=== PATIENT | female | born 2000 | race Caucasian/White ===

== ENCOUNTER 2023-09-30 12:14 | Emergency (ER) | payer OTHER, SELFPAY ==
[2023-09-30 12:30] VITALS: BP 131/88; PULSE 59; RESP 18; O2SAT 98; BMI 18.9
--- NOTE | 2023-09-30 12:58 | US_ITS ---
The [address] [address] Patient Name: TRINA NELSON MRN: [id number] date: 2000 Sex: F Assigned Patient Location: ER Current Patient Location: ER Accession/Order Number: [id number] Exam Date: 09/30/2023 14:16 Report Date: 09/30/2023 15:28 At the request of: INES COBOS Procedure: US pelvis transvaginal EXAM: US pelvis transvaginal INDICATION: Abnormal vaginal bleeding, awaiting test COMPARISON: No prior pelvic ultrasound available for comparison at the time of this dictation. TECHNIQUE: Transvaginal ultrasound with grayscale, color Doppler and spectral Doppler imaging. FINDINGS: Anteverted Uterus:8.0 x 3.7 x 5.1 cm. Grossly normal myometrial echotexture. Simple nabothian cyst. Endometrium:1.7 mm Right ovary: 3.6 x 1.8 x 2.5 cm. 1.3 x 1.1 x 1.2 cm dominant follicle within the right ovary. Left ovary: 4.5 x 2.8 x 3.1cm. 0.9 x 0.7 x 0.8 cm simple, thin-walled cystic nodule without vascular flow adjacent to the left adnexa. Normal color Doppler with arterial/venous spectral tracing to both ovaries. No free fluid in the cul-de-sac. US/US pelvis transvaginal IMPRESSION: 1. Simple cystic nodule adjacent to the left adnexa, given appearance likely a paratubal cyst. If there is a positive test with beta hCG greater than 1800 mIU/mL then ectopic would also be included in the differential. 2. No ovarian torsion or intrauterine gestation. Electronically authenticated by: VIVIENNE JOSEPH Date: 09/30/2023 15:28
--- NOTE | 2023-09-30 13:28 | ED.FEMALEGU1 ---
HPI - Female Genitourinary General Chief complaint: Urogenital-Female Stated complaint: VAGINAL BLEEDING Time Seen by Provider: 09/30/23 12:52 Source: patient Mode of arrival: walk-in History of Present Illness HPI Narrative: 22-year-old female presents for irregular abnormal vaginal bleeding. This has been present for a few months and she is not on control. She went to another emergency department and she states that they did a test and pelvic exam. 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 She continues to have this irregular bleeding and it's been heavier than typical and she came in to have this evaluated today. No syncope or chills mild low abdominal cramping but no significant abdominal pain. She has had bleeding twice this month. Related Data Allergies Allergy/AdvReac Type Severity Reaction Status Date / Time No Known Drug Allergies Allergy Verified 09/30/23 12:34 Review of Systems ROS Narrative A ten point review of systems is negative except as noted above. Exam Narrative Exam Narrative: Nurses note and vital signs reviewed and patient is not hypoxic. General: The patient appears well and in no apparent distress. Patient is resting comfortably on cart. Skin: Warm, dry, minimal pallor noted. There is no rash noted. Head: Normocephalic, atraumatic Eye: Normal conjunctiva, no drainage Ears, Nose, Mouth, and Throat: oral mucosa is moist. Nares patent. Cardiovascular: Regular Rate and Rhythm Respiratory: Patient is in no distress, no accessory muscle use, lungs are clear to auscultation, no wheezing, rales or rhonchi Back: non-tender GI: no tenderness to palpation, no masses appreciated. No rebound, guarding, or rigidity noted. Musculoskeletal: The patient has no evidence of calf tenderness, no pitting edema, symmetrical pulses noted bilaterally Neurological: A&O, normal speech Psychiatric: Cooperative Constitutional Vital Signs, click to edit/add: Last Vital Signs Pulse 59 L 09/30/23 12:30 Resp 18 09/30/23 12:30 BP 131/88 09/30/23 12:30 Pulse Ox 98 09/30/23 12:30 O2 Del Method Room Air 09/30/23 12:30 Course Vital Signs Vital signs: Vital Signs Pulse Rate 59 L 09/30/23 12:30 Respiratory Rate 18 09/30/23 12:30 Blood Pressure 131/88 09/30/23 12:30 Pulse Oximetry 98 09/30/23 12:30 Oxygen Delivery Method Room Air 09/30/23 12:30 Pulse Rate 59 L 09/30/23 12:30 Respiratory Rate 18 09/30/23 12:30 Blood Pressure 131/88 09/30/23 12:30 Pulse Oximetry 98 09/30/23 12:30 Oxygen Delivery Method Room Air 09/30/23 12:30 MDM - Female Genitourinary MDM Narrative Medical decision making narrative: test is negative. I've no clinical suspicion of ectopic . Ultrasound shows possible cyst at the left adnexa and otherwise is negative. She is being referred to gynecology for appropriate follow-up. She's not anemic, hemoglobin is 13.6. Treatment diagnosis and follow-up were discussed with the patient. Differential Diagnosis Differential diagnosis: Likely other (miscarriage, ectopic , dysfunctional uterine bleeding) Lab Data Attestation: I reviewed the patient's lab results. Labs: Lab Results 09/30/23 Range/Units 13:05 WBC 5.6 (4.0-11.0) 10^3/uL RBC 4.49 (4.20-5.40) 10^6/uL Hgb 13.6 (12.0-16.0) g/dL Hct 40.4 (36.0-48.0) % MCV 90.0 (81.0-99.0) fL MCH 30.3 (26.7-34.0) pg MCHC 33.7 (29.9-35.2) g/dL RDW 12.2 (11.0-15.0) % Plt Count 237 (150-450) 10^3/uL MPV 11.0 (9.5-13.5) fL Neut % (Auto) 54.2 (43.0-75.0) % Lymph % (Auto) 36.3 (20.5-60.0) % [place] % (Auto) 7.1 (1.7-12.0) % Eos % (Auto) 1.1 (0.9-7.0) % Baso % (Auto) 1.1 (0.2-2.0) % Neut # (Auto) 3.1 (1.4-6.5) 10^3/uL Lymph # (Auto) 2.0 (1.2-3.8) 10^3/uL [place] # (Auto) 0.4 (0.3-0.8) 10^3/uL Eos # (Auto) 0.1 (0.0-0.7) 10^3/uL Baso # (Auto) 0.1 (0.0-0.1) 10^3/uL Abs Immat Gran (auto) 0.01 (0.00-0.03) 10^3/uL Imm/Tot Granulo (auto) 0.2 (0.0-0.5) % Sodium 141 (136-145) mmol/L Potassium 3.5 (3.5-5.1) mmol/L Chloride 104 (98-107) mmol/L Carbon Dioxide 27.6 (21.0-32.0) mmol/L Anion Gap 12.9 BUN 15.0 (7.0-18.0) mg/dL Creatinine 0.69 (0.55-1.02) mg/dL Est GFR ( Amer) >60 (>=60) Est GFR (Non-Af Amer) >60 (>=60) BUN/Creatinine Ratio 21.7 Glucose 104 (74-106) mg/dL Calcium 9.3 (8.5-10.1) mg/dL Serum HCG, Qual Negative (NEGATIVE) Imaging Data pelvic ultrasound: Radiologist's impression: Procedure: US pelvis transvaginal EXAM: US pelvis transvaginal INDICATION: Abnormal vaginal bleeding, awaiting test COMPARISON: No prior pelvic ultrasound available for comparison at the time of this dictation. TECHNIQUE: Transvaginal ultrasound with grayscale, color Doppler and spectral Doppler imaging. FINDINGS: Anteverted Uterus:8.0 x 3.7 x 5.1 cm. Grossly normal myometrial echotexture. Simple nabothian cyst. Endometrium:1.7 mm Right ovary: 3.6 x 1.8 x 2.5 cm. 1.3 x 1.1 x 1.2 cm dominant follicle within the right ovary. Left ovary: 4.5 x 2.8 x 3.1cm. 0.9 x 0.7 x 0.8 cm simple, thin-walled cystic nodule without vascular flow adjacent to the left adnexa. Normal color Doppler with arterial/venous spectral tracing to both ovaries. No free fluid in the cul-de-sac. IMPRESSION: 1. Simple cystic nodule adjacent to the left adnexa, given appearance likely a paratubal cyst. If there is a positive test with beta hCG greater than 1800 mIU/mL then ectopic would also be included in the differential. 2. No ovarian torsion or intrauterine gestation. Electronically authenticated by: VIVIENNE JOSEPH Date: 09/30/2023 15:28 Discharge Plan Discharge Chief Complaint: Urogenital-Female Clinical Impression: DUB (dysfunctional uterine bleeding) Patient Disposition: Home, Self-Care Time of Disposition Decision: 15:50 Condition: Good Mode of Transportation: Private Vehicle Instructions: Abnormal (Dysfunctional) Uterine Bleeding (ED) Additional Instructions: follow-up with Dr. Ruiz Stand Alone Forms: Portal Instructions Referrals: Physician,Non-Staff, MD [Primary Care Provider] - 1 week
[2023-09-30 13:38] LABS: Basophils Absolute Auto 0.1 10^3/uL (0.0-0.1); Basophils Percent Auto 1.1 % (0.2-2.0); Eosinophils Absolute Auto 0.1 10^3/uL (0.0-0.7); Eosinophils Percent Auto 1.1 % (0.9-7.0); Hematocrit 40.4 % (36.0-48.0); Hemoglobin 13.6 g/dL (12.0-16.0); Immature Granulocytes Abs Auto 0.01 10^3/uL (0.00-0.03); Immature Granulocytes Pct Auto 0.2 % (0.0-0.5); Lymphocytes Percent Auto 36.3 % (20.5-60.0); Mean Corpuscular HGB Conc 33.7 g/dL (29.9-35.2); Mean Corpuscular Hemoglobin 30.3 pg (26.7-34.0); Monocytes Absolute Auto 0.4 10^3/uL (0.3-0.8); Monocytes Percent Auto 7.1 % (1.7-12.0); Neutrophils Absolute Auto 3.1 10^3/uL (1.4-6.5); Neutrophils Percent Auto 54.2 % (43.0-75.0); Platelet Count 237 10^3/uL (150-450); Red Blood Count 4.49 10^6/uL (4.20-5.40); Red Cell Distribution Width 12.2 % (11.0-15.0); White Blood Count 5.6 10^3/uL (4.0-11.0)
[2023-09-30 13:48] LABS: Anion Gap 12.9; BUN Creatinine Ratio 21.7; Calcium 9.3 mg/dL (8.5-10.1); Carbon Dioxide 27.6 mmol/L (21.0-32.0); Chloride 104 mmol/L (98-107); Estimated GFR (African America >60 (>=60); Estimated GFR (Non-African Ame >60 (>=60); Glucose 104 mg/dL (74-106); Potassium 3.5 mmol/L (3.5-5.1); Sodium 141 mmol/L (136-145)
[2023-09-30 13:49] LABS: HCG Qualitative NEGATIVE (NEGATIVE)
== END 2023-09-30 15:58 | disposition home or self-care (01) ==
PROVIDERS: Emergency Provider Emergency Medicine
DX: N93.8 Other specified abnormal uterine and vaginal bleeding (principal)
CPT/HCPCS: 36415; 76830; 80048; 84703; 85025; 99284

== ENCOUNTER 2023-11-08 21:37 | Emergency (ER) | payer OTHER, SELFPAY ==
[2023-11-08 21:41] VITALS: BP 126/76; PULSE 57; RESP 18; TEMP 36.8; O2SAT 98; BMI 18.9
--- OUTSIDE RECORDS SUMMARY | 2023-11-08 21:44 | XMS_ITS | CCD ---
Author Name Unknown Address [address] [facility] [address] [place] [address] Organization [facility] Care Team Providers Care Environmental Aid Name Role Phone ADRY JAUREGUI Unavailable Unavailable CARLOTA DOBBS Unavailable Unavailable Carlota Dbobs Primary Care Provider Carlota Dobbs Primary Care Provider Carlota Dobbs Primary Care Provider WILLIAM, LESIA D Referring Unavailable CARLOTA DOBBS Primary Care Unavailable CARLOTA DOBBS Primary Care Unavailable LENCOSKI, LESIA D Admitting Unavailable DOROTHYSKI, LESIA D Attending Unavailable CARLOTA DOBBS Primary Care Unavailable SHARIFI, LESIA D Referring Unavailable CARLOTA DOBBS Primary Care Unavailable LENCOSKI, LESIA D Admitting Unavailable LENCOSKI, LESIA D Attending Unavailable CARLOTA DOBBS Primary Care Unavailable CARLOTA DOBBS Primary Care Unavailable Carlota Dobbs MD Primary Care Provider Pascale Rodríguez Primary Care Physician [phone] Wilmar Rogel Attending Unavailable Anna Avendano Attending Unavailable Perry HAWTHORNE Attending Unavailable Wilmar Rogel Attending Unavailable Wilmar Rogel Attending Unavailable TRACY VASQUEZ Attending Unavailable Medications Current Medications Medication Drug Class(es) Dates Sig (Normalized) Sig (Original) acetaminophen 325 mg oral tablet (1 source) Start: 03-01-2020 take 650 mg by mouth every four hours as needed for pain, then take 4000 mg by mouth every twenty-four hours as needed for pain 650 mg, Oral, EVERY 4 HOURS PRN, Pain Mild (1-3), Fever, Fever >100.5 F (38 C), Starting Sat03/01/20 at 2024 Maximum dose of acetaminophen is 4000 mg from all sources in 24 hours. acetaminophen 325 mg / HYDROcodone bitartrate 5 mg oral tablet (6 sources) Opioid Agonist Start: 08-12-2022 [place] 325 mg-5 mg oral tablet 1 tab(s), Oral, q6hr for pain, 12 tab(s), Refill(s) 0 Start Date: 08/12/22 Status: Ordered Start: 08-08-2022 acetaminophen- hydrocodone 325 mg-5 mg oral tablet 1 tab(s), Oral, q4hr for pain, 8 tab(s), Refill(s) 0, [facility] #[id number], 154, cm, 08/08/22 19:39:00 EDT, Height/Length Dosing, 46, kg, 08/08/22 19:39:00 EDT, Weight Dosing Start Date: 08/08/22 Status: Ordered Start: 03-01-2020 HYDROcodone-ac etaminophen (NORCO) 5-325 MG per tablet 1 tablet benzocaine 200 mg/ml / menthol 5 mg/ml topical spray (1 source) Standardized Chemical Allergen Start: 03-01-2020 Topical, PRN, Pain, Starting Sat03/01/20 at 2024 Apply to perineal area. Patient is capable and may self administer at bedside. dicyclomine hydrochloride 10 mg oral capsule (4 sources) Anticholinergic Start: 07-28-2022 take 2 capsules by mouth four times daily Bentyl 10 mg Cap 20 mg = 2 cap(s), Oral, QID, # 20 cap(s), Refills(s) 0 Start Date: 07/28/22 Status: Ordered docusate sodium 100 mg oral capsule (1 source) Start: 03-01-2020 take 100 mg by mouth once daily for constipation 100 mg, Oral, DAILY, First dose on Sat03/01/20 at 2045 Do not crush or break. Once daily PRN constipation etodolac 400 mg oral tablet (1 source) Nonsteroidal Anti-inflammatory Drug Start: 07-22-2020 take 1 tablet by mouth twice daily etodolac (LODINE) 400 MG tablet Take 1 tablet by mouth 2 times daily 14 tablet 0 07/22/2020 Active Start: 07-22-2020 take 1 tablet by alexey th twice daily etodolac (LODINE) 400 MG tablet Take 1 tablet by mouth 2 times daily 14 tablet 0 07/22/2020 Active ferrous sulfate 325 mg oral tablet (2 sources) Start: 03-02-2020 take 1 tablet by mouth twice daily at mealtime ferrous sulfate (IRON 325) 325 (65 Fe) MG tablet Take 1 tablet by mouth 2 times daily (with meals) 60 tablet 2 03/02/2020 Active ibuprofen 600 mg oral tablet (3 sources) Nonsteroidal Anti-inflammatory Drug Start: 03-01-2020 take 1 tablet by mouth every six hours as needed for pain ibuprofen (ADVIL;MOTRIN) 600 MG tablet Take 1 tablet by mouth every 6 hours as needed for Pain 120 tablet 3 03/01/2020 Active lanolin 0.5 mg/mg topical ointment (1 source) Start: 03-01-2020 Topical, PRN, Dry Skin, nipple discomfort, Starting Sat03/01/20 at 2024, metoclopramide 10 mg oral tablet (1 source) Dopamine-2 Receptor Antagonist Start: 07-08-2019 take 1 tablet by mouth three times daily as needed for pain and vomiting metoclopramide (REGLAN) 10 MG tablet TAKE 1 TABLET BY MOUTH 3 TIMES A DAY NEEDED FOR PAIN NEEDED FOR NAUSEA AND VOMITING 0 07/08/2019 Active naproxen 500 mg oral tablet (3 sources) Nonsteroidal Anti-inflammatory Drug Start: 08-08-2022 take 1 tablet by mouth twice daily Naprosyn 500 mg Tab 500 mg = 1 tab(s), Oral, BID, # 20 tab(s), Refills(s) 0, [facility]acy: [facility] #[id number], 154, cm, 08/08/22 19:39:00 EDT, Height/Length Dosing, 46, kg, 08/08/22 19:39:00 EDT, Weight Dosing Start Date: 08/08/22 Status: Ordered ondansetron 4 mg oral tablet (6 sources) Serotonin-3 Receptor Antagonist Start: 08-12-2022 take 1 tablet by mouth every eight hours as needed for nausea Zofran 4 mg Tab 4 mg = 1 tab(s), Oral, q8hr, PRN Nausea/Vomiting, # 12 tab(s), Refills(s) 0 Start Date: 08/12/22 Status: Ordered Start: 08-08-2022 take 1 tablet by alexey th every six hours ondansetron 4 mg Dis Tab 4 mg = 1 tab(s), Oral, q6hr, # 12 tab(s), Refills(s) 0, Pharmacy: [facility] #[id number], 154, cm, 08/08/22 19:39:00 EDT, Height/Length Dosing, 46, kg, 08/08/22 19:39:00 EDT, Weight Dosing Start Date: 08/08/22 Status: Ordered Start: 03-01-2020 4 mg, Intraven ous, EVERY 6 HOURS PRN, Nausea, Starting Sat03/01/20 at 2024, pantoprazole 40 mg extended release oral tablet (4 sources) Proton Pump Inhibitor Start: 07-28-2022 take 1 tablet by mouth once daily pantoprazole 40 mg Oral EC Tab 40 mg = 1 tab(s), Oral, Daily, # 20 tab(s), Refills(s) 0 Start Date: 07/28/22 Status: Ordered Start: 07-28-2022 take 1 tablet by alexey th once daily pantoprazole 40 mg Oral EC Tab 40 mg = 1 tab(s), Oral, Daily, # 20 tab(s), Refills(s) 0 Start Date: 07/28/22 Status: Ordered 3 ml sodium chloride 9 mg/ml injection (2 sources) Start: 03-01-2020 10 mL, Intrave nous, EVERY 12 HOURS SCHEDULED (2 times per day), First dose on Sat03/01/20 at 2100, Start: 03-01-2020 take 10 mL intravenous route o nce 10 mL, Intravenous, PRN, Line Care, Starting Sat03/01/20 at 2024 After every IV line use tamsulosin hydrochloride 0.4 mg oral capsule (4 sources) alpha-Adrenergic Nila Start: 08-08-2022 End: 08-08-2022 take 1 capsule by mouth once daily tamsulosin 0.4 mg Cap 0.4 mg = 1 cap(s), Oral, Daily, # 10 cap(s), Refills(s) 0, [facility]acy: [facility] #[id number], 154, cm, 08/08/22 19:39:00 EDT, Height/Length Dosing, 46, kg, 08/08/22 19:39:00 EDT, Weight Dosing Start Date: 08/08/22 Status: Ordered Completed/Discontinued Medications Medication Drug Class(es) Dates Sig (Normalized) Sig (Original) calcium chloride 0.0014 meq/ml / potassium chloride 0.004 meq/ml / sodium chloride 0.103 meq/ml / sodium lactate 0.028 meq/ml injectable solution (1 source) Start: 03-01-2020 End: 03-01-2020 lactated ringers infusion 1 ml ketorolac tromethamine 30 mg/ml cartridge (1 source) Nonsteroidal Anti-inflammatory Drug, Cyclooxygenase Inhibitor Start: 07-22-2020 End: 07-22-2020 ketorolac (TORADOL) injection 30 mg oxytocin (PITOCIN) 30 units in 500 mL infusion (2 sources) Start: 03-01-2020 End: 03-01-2020 oxytocin (PITOCIN) 30 units in 500 mL infusion Start: 03-01-2020 End: 03-01-2020 oxytocin (PITOCIN) 30 units in 500 mL infusion Xpriolcv-Cqt-Wk-FA ( VITAMINS PO) (4 sources) End: 03-02-2020 Sxpajxmn-Abh-Yo-FA ( VITAMINS PO) Take by mouth 0 03/02/2020 Discontinued (Stop Taking at Discharge) Multivi t-Min-Fe-FA ( VITAMINS PO) Take by mouth 0 Active MV & Min w/FA-DHA ( ADULT GUMMY/DHA/FA) 0.4-25 MG CHEW (3 sources) Start: 09-22-2019 End: 03-02-2020 take 0.4-25 mg by mouth once daily MV & Min w/FA-DHA ( ADULT GUMMY/DHA/FA) 0.4-25 MG CHEW Take 1 each by mouth daily 30 tablet 5 09/22/2019 03/02/2020 Discontinued (Stop Taking at Discharge) Start: 09-22-2019 take 0.4-25 mg by mo ut once daily MV & Min w/FA-DHA ( ADULT GUMMY/DHA/FA) 0.4-25 MG CHEW Take 1 each by mouth daily 30 tablet 5 09/22/2019 Active Problems Active Problems Problem Classification Problem Date Documented Date Episodic/Chronic Abdominal pain (1 source) Abdominal pain; Translations: [Unspecified abdominal pain] Onset: 07-28-2022 Episodic Calculus of urinary tract (2 sources) Kidney stone; Translations: [Calculus of kidney] Onset: 08-08-2022 Episodic Menstrual disorders (1 source) Amenorrhea; Translations: [Amenorrhea] Chronic Nonspecific chest pain (1 source) Chest pain; Translations: [Chest pain, unspecified] Onset: 07-28-2022 Episodic Other complications of ; puerperium affecting management of mother (5 sources) Anemia during the puerperium; Translations: [ anemia] Onset: 08-19-2017 08-19-2017 Chronic Other female genital disorders (1 source) Abnormal uterine bleeding; Translations: [Abnormal uterine and vaginal bleeding, unspecified] Onset: 05-21-2023 Chronic Substance-related disorders (4 sources) Smoker 07-28-2022 Chronic Comment on above: Added secondary to d ocumentation in Social History. Unclassified (1 source) Sprain of left foot; Translations: [Foot sprain, left, initial encounter] Past or Other Problems Problem Classification Problem Date Documented Da te Episodic/Chronic Early or threatened labor (5 sources) False labor at or after 37 completed weeks of gestation; Translations: [False labor after 37 completed weeks of gestation] Resolved: 01-31-2018 01-31-2018 Episodic Normal and/or delivery (14 sources) Encounter for supervision of normal first , third trimester; Translations: [Normal ] Onset: 06-12-2017 Resolved: 03-02-2020 01-31-2018 Episodic Prolonged (5 sources) Post-term of 40 to 42 weeks; Translations: [Post-term , 40-42 weeks of gestation] Onset: 08-14-2017 Resolved: 01-31-2018 01-31-2018 Episodic Residual codes; unclassified (5 sources) Gestation period, 39 weeks; Translations: [39 weeks gestation of ] Resolved: 01-31-2018 01-31-2018 Episodic Urinary tract infections (5 sources) Acute cystitis; Translations: [Acute cystitis without hematuria] Resolved: 01-31-2018 01-31-2018 Episodic Results Test Name Value Interpretation Reference Range Facility Discharge Instructionson Discharge Instructions [id number]# 1.00CD:127 Normal [facility] ED Clinical Summaryon 2022 ED Clinical Summary [place] [id number] ED Clinical Summary Person Information Name: TRINA NELSON [facility] Age: 22 Years : 2000 Sex: Female Language: Hungarian PCP: Pascale Rodríguez MD Marital Status: Single Phone: [phone] Visit Id: Visit Reason: Medical screening exam; Vaginal bleeding; HEAVY VAGINAL BLEEDING Speciality: Acuity: 3 Enc Type: Emergency Med Service: Emergency Arrival: 05/21/2023 21:04:32 Discharge: 05/21/2023 23:27:04 LOS: 000 02:23 Checkin: 05/21/2023 21:04:32 Checkout: 05/21/2023 23:27:04 Dispo Type: Home (Routine DC) EVENTS: Event Name Event Status Request Date/Time Start Date/Time Complete Date/Time Arrive Complete 05/21/2023 21:04:32 05/21/2023 21:04:32 05/21/2023 21:04:32 Document Home Meds Request 05/21/2023 21:04:32 Triage Complete 05/21/2023 21:04:32 05/21/2023 21:16:36 05/21/2023 21:16:36 Registration Complete 05/21/2023 21:12:33 05/21/2023 21:12:33 05/21/2023 21:12:33 Reg Complete Request 05/21/2023 21:12:33 Reg Bed Request Complete 05/21/2023 21:12:33 05/21/2023 21:12:33 05/21/2023 21:12:33 Bed Assign Complete 05/21/2023 21:17:15 05/21/2023 21:17:15 05/21/2023 21:17:15 Dr Exam Complete 05/21/2023 21:17:15 05/21/2023 21:17:43 05/21/2023 21:17:43 RN Exam Complete 05/21/2023 21:17:15 05/21/2023 22:19:32 05/21/2023 22:19:32 Registration Start 05/21/2023 21:17:43 05/21/2023 21:29:04 Pending Labs Complete 05/21/2023 21:18:18 05/21/2023 22:11:40 Lab Complete 05/21/2023 21:18:18 05/21/2023 22:11:40 Urine Collect Complete 05/21/2023 21:18:18 05/21/2023 22:11:40 Discharge Complete 05/21/2023 23:05:19 05/21/2023 23:27:08 05/21/2023 23:27:08 Transfer Complete 05/21/2023 23:27:08 05/21/2023 23:27:08 05/21/2023 23:27:08 ADDRESS: [address] [place] [phone] PHYS DOC NOTES: MEDICAL INFORMATION: Prescriptions Given: Medications to Continue with No Changes Other Medications acetaminophen-hydroco done (acetaminophen-hydroc odone 325 mg-5 mg oral tablet) 1 Tablets By Mouth every 4 hours as needed for pain. Refills: 0. acetaminophen-hydroco done ([place] 325 mg-5 mg oral tablet) 1 Tablets By Mouth every 6 hours as needed for pain. Refills: 0. dicyclomine (Bentyl 10 mg Cap) 2 Capsules By Mouth 4 times a day. Refills: 0. naproxen (Naprosyn 500 mg Tab) 1 Tablets By Mouth 2 times a day. Refills: 0. ondansetron (ondansetron 4 mg Dis Tab) 1 Tablets By Mouth every 6 hours. Refills: 0. ondansetron (Zofran 4 mg Tab) 1 Tablets By Mouth every 8 hours as needed Nausea/Vomiting. Refills: 0. pantoprazole (pantoprazole 40 mg Oral EC Tab) 1 Tablets By Mouth every day. Refills: 0. tamsulosin (tamsulosin 0.4 mg Cap) 1 Capsules By Mouth every day. Refills: 0. PATIENT EDUCATION INFORMATION: Instructions: Abnormal Uterine Bleeding, Icsu-pj-Ppfs Follow up: With: Address: When: Martin AGUIAR, [facility] [address], [place] [address] Business (1) In 3 days 05/24/2023 Comments: Please follow-up with your primary care doctor in the next 2 to 3 days for further evaluation and management. Please follow-up with OB for further evaluation management. Return to the ED for any new or worsening symptoms. With: Address: When: Pascale Puentegabjohn In 3 days 05/24/2023 DIAGNOSIS: Abnormal vaginal bleeding Normal [facility] ED Note-Physicianon 05-22-20 ED Note-Physician Basic Information Time Seen: Wilmar Rogel DO 05/21/2023 21:17 Chief Complaint Pt states that she had her period 2 weeks ago (05/01). States this AM that she started bleeding again, describes it as implantation bleeding. Pt denies a chance of . C/o intermittent mild cramping. History of Present Illness Patient is a 22-year-old female with no past medical history presenting to the ED for evaluation of abnormal vaginal bleeding. Patient states she had her menstrual cycle 2 weeks ago, started having bleeding again today. Patient states this is thinner than her typical menstrual cycle. Denies any abdominal pain, fevers, chills, dizziness or lightheadedness. Is concerned about possible implantation bleeding. Patient does not follow with an POOLROOM/POOLHALL MANAGER. Denies any concern for STDs Review of Systems A 10 point review of systems is negative except as noted above. Medical and Surgical History: Reviewed and noted Social history: Lives at home Tobacco: Denies Physical Exam Vitals & Measurements T: 36.6 ?C(Oral) HR: 62(Peripheral) RR: 18 BP: 126/71 SpO2: 100% HT: 155 cm WT: 45.5 kg BMI: 18.94 General: Well developed, non toxic appearing, no acute distress HEENT: Head atraumatic, Mucosa moist, hearing grossly normal Neck: No JVD, tracheal deviation Cardiac: Regular rate, rhythm, no murmurs, or gallops, 2+ radial pulses Respiratory: Lungs clear to auscultation B/L, normal respiratory effort Abdomen: Soft non tender, no rebound or guarding, no peritoneal signs \ : Performed with nurse Kavitha in room, normal external genitalia, cervical os is closed. Moderate vaginal bleeding noted on examination. Extremities: No edema noted in the LE B/L, no tenderness to palpation Neurologic: Alert and oriented, speech clear Skin: No rashes or lesions Psych: Appropriate mood and behavior Medical Decision Making MEDICAL DECISION MAKING Number and Complexity of Problems Differential Diagnosis: [] [facility] Data External documents reviewed: [] My EKG interpretation: [] My CT interpretation: [] My X-ray interpretation: [] My Ultrasound interpretation: [] Decision rules/scores evaluated: [] Discussed with: [] Treatment and Disposition ED Course: Patient is a 22-year-old female presenting to the ED for evaluation of abnormal uterine bleeding. Patient is nontoxic and on arrival, no acute distress. Urinalysis and test are obtained and are both negative other than blood in her urine. I did offer pelvic exam which patient accepted. Patient cervical os is closed, there is moderate bleeding on examination otherwise no acute abnormalities. Discussed the findings with the patient is given referral to POOLROOM/POOLHALL MANAGER. She is recommended to take another test in a week if she is still concern for possible . She is follow-up with her primary care doctor next 2 to 3 days. She is to return to the ED for any new or worsening symptoms. Shared decision making: [] Code status: [] Assessment/Plan Abnormal vaginal bleeding (N93.9: Abnormal uterine and vaginal bleeding, unspecified) Orders: U Beta Hcg Qual UA With Cult Reflex Disposition Plan Discharge Prescription List Prescriptions No active prescription medications Follow-up With When Contact Information Martin Pereyra In 3 days 05/24/2023 EDT [address] [facility], [facility] [address] [place] [address]- Business (1) Additional Instructions: Please follow-up with your primary care doctor in the next 2 to 3 days for further evaluation and management. Please follow-up with OB for further evaluation management. Return to the ED for any new or worsening symptoms. Pascale Gudimella In 3 days 05/24/2023 EDT Additional Instructions: Patient Education Abnormal Uterine Bleeding, Bmxt-vw-Qrap Problem List/Past Medical History Ongoing Smoker Historical No qualifying data Medications Inpatient No active inpatient medications Home acetaminophen-hydroco done 325 mg-5 mg oral tablet, 1 tab(s), Oral, q4hr, PRN Bentyl 10 mg Cap, 20 mg= 2 cap(s), Oral, QID Naprosyn 500 mg Tab, 500 mg= 1 tab(s), Oral, BID [place] 325 mg-5 mg oral tablet, 1 tab(s), Oral, q6hr, PRN ondansetron 4 mg Dis Tab, 4 mg= 1 tab(s), Oral, q6hr pantoprazole 40 mg Oral EC Tab, 40 mg= 1 tab(s), Oral, Daily tamsulosin 0.4 mg Cap, 0.4 mg= 1 cap(s), Oral, Daily Zofran 4 mg Tab, 4 mg= 1 tab(s), Oral, q8hr, PRN Allergies No Known Allergies Social History Alcohol Substance Abuse Tobacco 4 or less cigarettes(less than 1/4 pack)/day in last 30 days Tobacco Use:., 07/28/2022 Lab Results UA Spec Desc: Clean Catch (05/21/23 21:51:00) UA Color: Yellow2 (05/21/23 21:51:00) UA Clarity: Clear2 (05/21/23 21:51:00) UA Spec Grav: <=1.005 (05/21/23 21:51:00) UA pH: 7.0 (05/21/23 21:51:00) UA Protein: NEGATIVE1 (05/21/23 21:51:00) UA Glucose: NEGATIVE1 (05/21/23 21:51:00) UA Ketones: NEGATIVE1 (05/21/23 21:51:00) UA Bili: NEGATIVE1 ( (more content not included)... Normal [facility] Comment on above: Result Comment: Elec tronically Signed By: Wilmar Rogel DO\elva\Date and Time Signed: 05/21/23 23:16 EDT ED Patient Education Noteon 05-22-2023 ED Patient Education Note Obstetrics and Gynecology Abnormal Uterine Bleeding Abnormal uterine bleeding means bleeding more than normal from your womb (uterus). It can include: ? Bleeding after sex. ? Bleeding between monthly (menstrual) periods. ? Bleeding that is heavier than normal. ? Monthly periods that last longer than normal. ? Bleeding after you have stopped having your monthly period (menopause). You should see a doctor for any kind of bleeding that is not normal. Treatment depends on the cause of your bleeding and how much you bleed. Follow these instructions at home: Medicines ? Take emjf-rva-nhlnrcs and prescription medicines only as told by your doctor. ? Ask your doctor about: ? Taking medicines such as aspirin and ibuprofen. Do not take these medicines unless your doctor tells you to take them. ? Taking wmrt-awo-ryxzhoz medicines, vitamins, herbs, and supplements. ? You may be given iron pills. Take them as told by your doctor. Managing constipation If you take iron pills, you may need to take these actions to prevent or treat trouble pooping (constipation): ? Drink enough fluid to keep your pee (urine) pale yellow. ? Take hvpz-mag-ofekssb or prescription medicines. ? Eat foods that are high in fiber. These include beans, whole grains, and fresh fruits and vegetables. ? Limit foods that are high in fat and sugar. These include fried or sweet foods. Activity Change your activity to decrease bleeding if you need to change your sanitary pad more than one time every 2 hours: ? Lie in bed with your feet raised (elevated). ? Place a cold pack on your lower belly. ? Rest as much as you are able until the bleeding stops or slows down. General instructions ? Do not use tampons, douche, or have sex until your doctor says these things are okay. ? Change your pads often. ? Get regular exams. These include: ? Pelvic exams. ? Screenings for cancer of the cervix. ? It is up to you to get the results of any tests that are done. Ask how to get your results when they are ready. ? Watch for any changes in your bleeding. For 2 months, write down: ? When your monthly period starts. ? When your monthly period ends. ? When you get any abnormal bleeding from your vagina. ? What problems you notice. ? Keep all follow-up visits. Contact a doctor if: ? The bleeding lasts more than one week. ? You feel dizzy at times. ? You feel like you may vomit (nausea). ? You vomit. ? You feel light-headed or weak. ? Your symptoms get worse. Get help right away if: ? You faint. ? You have to change pads every hour. ? You have pain in your belly. ? You have a fever or chills. ? You get sweaty or weak. ? You pass large blood clots from your vagina. These symptoms may be an emergency. Get help right away. Call your local emergency services (911 in the [place] ? Do not wait to see if the symptoms will go away. ? Do not drive yourself to the hospital. Summary ? Abnormal uterine bleeding means bleeding more than normal from your womb (uterus). ? Any kind of bleeding that is not normal should be checked by a doctor. ? Treatment depends on the cause of your bleeding and how much you bleed. ? Get help right away if you faint, you have to change pads every hour, or you pass large blood clots from your vagina. This information is not intended to replace advice given to you by your health care provider. Make sure you discuss any questions you have with your health care provider. Document Revised: 01/30/2022 Document Reviewed: 01/30/2022 [employer] Patient Education ? 2022 [employer] Normal [facility] ED Patient Summaryon 023 ED Patient Summary [place] [id number] Patient Discharge Instructions Person Information Name: TRINA NELSON Age: 22 Years Arrival Date: 05/21/2023 21:04:32 Discharge Diagnosis: Abnormal vaginal bleeding Primary Care Physician: Pascale Rodríguez MD Provider Information Primary Provider: Wilmar Rogel DO Advanced Spanish Language Lecturer:None The exam and treatment you received in the Emergency Department were for an urgent problem and are not intended as complete care. It is important that you follow up with a doctor, nurse practitioner, or physician?s early childhood teacher assistant for ongoing care. If your symptoms become worse or you do not improve as expected and you are unable to reach your usual health care provider, you should return to the Emergency Department. We are available 24 hours a day. TRINA NELSON has been given the following list of patient education materials, prescriptions and follow-up instructions: Follow-up Instructions: With: Address: When: Martin Pereyra Marilyn AGUIAR, [facility] [address], [place] [address] Business (1) In 3 days 05/24/2023 Comments: Please follow-up with your primary care doctor in the next 2 to 3 days for further evaluation and management. Please follow-up with OB for further evaluation management. Return to the ED for any new or worsening symptoms. With: Address: When: Pascale Rodríguez In 3 days 05/24/2023 In the event that this physician does not participate in your insurance network, please consult with your insurance company to find a nearby participating provider. Patient Education Materials: Abnormal Uterine Bleeding, Tgxj-qq-Pshd A MESSAGE TO ALL PATIENTS REGARDING OPIOIDS PRESCRIPTION OPIOIDS: WHAT YOU NEED TO KNOW Prescription opioids can be used to help relieve ltpomhhl-vg-yitwef pain and are often prescribed following a surgery or injury, or for certain health conditions. These medications can be an important part of the treatment but also come with serious risks. It is important to work with your healthcare provider to make sure you are getting the safest, most effective care. WHAT ARE THE RISKS AND SIDE EFFECTS OF OPIOID USE? Prescription opioids carry serious risks of addiction and overdose, especially with prolonged use. An opioid overdose, often marked by slowed breathing, can cause sudden . The use of prescription opioids can have a number of side effects as well, even when taken as directed: ? Tolerance?meaning you might need to take more of the medication for the same pain relief ? Physical dependence?meaning you have symptoms of withdrawal when a medication is stopped ? Increased sensitivity to pain ? Constipation ? Nausea, vomiting, and dry mouth ? Sleepiness and dizziness ? Confusion ? Depression ? Low levels of testosterone that can result in lower sex drive, energy, and strength ? Itching and sweating RISKS ARE GREATER WITH: ? History of drug misuse, substance use disorder, or overdose ? Mental health conditions (such as depression or anxiety) ? Sleep apnea ? Older age (65 years and older) ? Avoid alcohol while taking prescription opioids. Also, unless specifically advised by your health care provider, medications to avoid include: ? Benzodiazepines (such as Xanax or Valium) ? Muscle relaxants (such as Soma or Flexeril) ? Hypnotics (such as Ambien or Lunesta) ? Other prescription opioids KNOW YOUR OPTIONS Talk to your health care provider about ways to manage your pain that don?t involve prescription opioids. Some of these options may actually work better and have fewer risks and side effects. Options may include: ? Pain relievers such as acetaminophen, ibuprofen, and naproxen ? Some medication that are also used for depression or seizures ? Physical therapy and exercise ? Cognitive behavioral therapy, a psychological, goal-directed approach, in which patients learn how to modify physical, behavioral, and emotional triggers of pain and stress. IF YOU ARE PRESCRIBED OPIOIDS FOR PAIN: ? Never take opioids in greater amounts or more often than prescribed. ? Follow up with your primary health care provider. o Work together to create a plan on how to manage your pain. o Talk about ways to help manage your pain that don?t involve prescription opioids. o Talk about any and all concerns and side effects. ? Help prevent misuse and abuse o Never sell or share prescription opioids. o Never use another person?s prescription opioids. ? Store prescription opioids in a secure place and out of reach of others (this may include visitors, children, friends, and family). ? Safely dispose of unused prescription opioids: Find your community drug take-back program or your pharmacy mail-back program, or flush them down the toilet, following guidance from the Food and Drug A (more content not included)... Normal [facility] U BetaHcg Qualon 05-22-2023 HCG.beta subunit (U) [Moles/Vol] Negative Normal [facility] Comment on above: Performed By: #### 2 [id number], [id number] ####[facility] [address] [place] [address] UA With Cult Reflexon 2022 Bacteria LM Ql (Urine sed) TRACE Normal Trace [facility] Comment on above: Performed By: #### 2 [id number], [id number] ####[facility] [address] [place] [address] Bilirubin Ql (U) Negative Normal Negative [facility] Comment on above: Performed By: #### 2 [id number], [id number] ####[address] [address] Clarity (U) CLEAR Normal Clear [facility] Comment on above: Performed By: #### 2 [id number], [id number] ####[address] [address] Color (U) YELLOW Normal Yellow [facility] Comment on above: Performed By: #### 2 [id number], [id number] ####[address] [address] Epithelial cells.squamous LM.HPF (Urine sed) [#/Area] 3-4 Normal 0-2 [facility] Comment on above: Performed By: #### 2 [id number], [id number] ####[address] [address] Glucose Test strip (U) [Mass/Vol] Negative Normal Negative [facility] Comment on above: Performed By: #### 2 [id number], [id number] ####[address] [address] Hemoglobin Ql (U) 3+ Abnormal Negative [facility] Comment on above: Performed By: #### 2 [id number], [id number] ####[address] [address] Ketones (U) [Mass/Vol] Negative Normal Negative [facility] Comment on above: Performed By: #### 2 [id number], [id number] ####[address] [address] Loco.plasma/Loco .RBC (Bld) [Mass ratio] 0-3 Normal 0-3 [facility] Comment on above: Performed By: #### 2 [id number], [id number] ####[address] [place] [address] Nitrite Ql (U) Negative Normal Negative [facility] Comment on above: Performed By: #### 2 [id number], [id number] ####[address] [place] [address] pH (U) 7.0 [pH] Invalid Interpretation Code 5.0-9.0 [facility] Comment on above: Performed By: #### 2 [id number], [id number] ####[address] [address] Protein (U) [Mass/Vol] Negative Normal Negative [facility] Comment on above: Performed By: #### 2 [id number], [id number] ####[address] [address] Specific gravity (U) [Rel density] <=1.005 Invalid Interpretation Code 1.005-1.030 [facility] Comment on above: Performed By: #### 2 [id number], [id number] ####[address] [address] Type of Urine collection method Clean Catch Normal [facility] Comment on above: Performed By: #### 2 [id number], [id number] ####[address] [address] Urobilinogen Qn (U) 0.2 {Lian'U}/dL Normal 0.0-1.0 [facility] Comment on above: Performed By: #### 2 [id number], [id number] ####[address] [address] WBC Auto Ql (U) Negative Normal Negative [facility] Comment on above: Performed By: #### 2 [id number], [id number] ####[address] [address] WBC LM.HPF (Urine sed) [#/Area] 0-5 Normal 0-5 [facility] Comment on above: Performed By: #### 2 [id number], [id number] ####[address] [address] Consent for Treatmenton 080 Consent for Treatment [phone] [facility] [id number] Normal [facility] SEROLOGYOrdered By: Fernando sr on 05-21-2023 HCG.beta subunit (U) [Moles/Vol] Negative Normal [facility] URINALYSISOrdered By: Fernando Polk on 05-21-2023 Bacteria LM Ql (Urine sed) Trace /HPF Normal Trace/HPF [facility] UA Auto SS Bilirubin Ql (U) Negative (05/21/23 9:51 PM) Normal Negative [facility] UA Auto SS Clarity (U) Clear (05/21/23 9:51 PM) Normal Clear [facility] UA Auto SS Color (U) Yellow (05/21/23 9:51 PM) Normal Yellow [facility] UA Auto SS Epithelial cells.squamous LM.HPF (Urine sed) [#/Area] 3-4 /HPF Normal 0-2/HPF [facility] UA Aut o SS Glucose Test strip (U) [Mass/Vol] Negative (05/21/23 9:51 PM) Normal Negative [facility] UA Auto SS Hemoglobin Ql (U) 3+ *ABN* (05/21/23 9:51 PM) Invalid Interpretation Code Negative [facility] UA Auto SS Ketones (U) [Mass/Vol] Negative (05/21/23 9:51 PM) Normal Negative [facility] UA Auto SS Loco.plasma/Loco .RBC (Bld) [Mass ratio] 0-3 /HPF Normal 0-3/HPF [facility] UA Auto SS Nitrite Ql (U) Negative (05/21/23 9:51 PM) Normal Negative [facility] UA Auto SS pH (U) 7.0 *NA* (05/21/23 9:51 PM) Invalid Interpretation Code 5.0 - 9.0 [facility] UA Auto SS Protein (U) [Mass/Vol] Negative (05/21/23 9:51 PM) Normal Negative [facility] UA Auto SS Specific gravity (U) [Rel density] <=1.005 *NA* (05/21/23 9:51 PM) Invalid Interpretation Code 1.005 - 1.030 [facility] UA Auto SS UA Spec Desc Clean Catch (05/21/23 9:51 PM) Normal [facility] UA Auto SS Urobilinogen Qn (U) 0.2044781 {Lian'U}/dL Normal 0.0 - 1.0 EU/dL [facility] UA Auto SS WBC Auto Ql (U) Negative (05/21/23 9:51 PM) Normal Negative [facility] UA Auto SS WBC LM.HPF (Urine sed) [#/Area] 0-5 /HPF Normal 0-5/HPF [facility] UA Auto SS Coding Summary.on 08-13-2022 Coding Summary. CD:[id number] G h0bWw+PGhlYWQ+LY0APXD iZ30cqDEtxC7TT0dQLM7Y NFNGNZQDLP2NUY6znLY9R QqbS9WvkhVw WhdigTAjQT58UOl7BUQ7i GswBWkxfW0bpAXqQ6t3Sr PwUB68mP66OHuxPCLtNpY 3LjZpbjsgbWFy Y4hiJgGesRZfBaf+PHRhY mxlIHdpZHRoPScxMDAlJy MbwRkqIJ5iOt9vUJMmJNI vbGxhcHNlOiBj j0mjNYTjCDnpHH3teMtaS 5UunZX3CZJic8m8Pz00xQ I+UYPyXLT0sRwiQXzjh15 1ZxIpl7jiMMK5 jRMoOBkuBHN8I61sj4W4I YPvEHZyBZG8fOA6sU0wxJ ymjwgwC8FucBQrUgN2QFM 5rFOprG4qiUxr pwoxmY6rThi+T94ISF5DE AYUZK6HCyy4C7QaRrsniV I+AW55FGUsIX44kAHygUX fz0cdpTv6NqCg XWJeDNV8rAkfJJeid7FcF LZxC69hmPPxs8B8XGRitA dyzFHhHiAqqSQ5qQ0uJDy lwskrd0shbhla Hxxug4lvha61iK80M54yV QaxHAWeFGD2ARAdTDEniR dpwe5xoD4xDz9+ZRjgw0q ux0jolSw7JsRn VVTlxkIkoRayHTX8x0OvQ i88W5VpzAwcq6SdLbq1hm 76zIRii5W5cLS7WKmoDXH caU6fVQhyQyY3 IUTsLdAaiK90zMNrHYryH a8yhRpprKbfJL2gJWPszs ncKOKbjV2kQJBijVKumRo fHD1iHWNugvuf i649SxKgRTS0FLSciKNyY 6IjlF9xQhBoIRCpEJKkV1 OhlLQbGQbgD010UEiqZnS 0USBtedThC6Ss IURwdFbtUjC1g5N7Uw5Px 1AysejxETP5ULozGKPhNw XbSfRyFvA6H4VyYie9FJR zaHyrKV2vD3Ek JXHifzllnhlsnIB7FFXxQ IOqhF90cAAjGZmzHx4ba6 L1e217AQBoOFYzgL84Ps5 udDogMTBwdCBU aO4eyabmu9tifdidPyQgA GAuRGn4XVm4QHKwkGewVx XxEYC3ViU4XAD3cNXaxT5 mlTkunvnmlF2t Oyc+F68wdU2iYUD6FKD4g uxyQVWlgqIvYW30ML29P7 RyPjwvdGFibGU+PGRpdiB hlOnuCA8lRhCc v8mvr8GdTHyrH1EcCVJuZ RefGep7LXMrNYV8nUZ1yL 2dEKHhYKwum7Y2fWB0P2Y ndeVkwh1fj0es RLWhDJgmE04kmTJom3P5M BUcsOD9IUZbjKubLcJrqN 93Oyc+TODcnXebg3VbLia dd2oio5hbeNk5 EjOnNKUxsfWlaHmcWEV3q 9LmHt53I81mTXphYCXfWI BvOFDnHBKkuFzrxv0qnL0 wIi8+PGNvbCB3 wKL7aF3sHWKvHyZ0OPviB 266YdOtkVRlHiemp1xcm9 zhkXs7OdBbLVExvrGugHa oPVP4t2TfAz71 F13kNPupWMYuNNHyQGToD KUqbQukpc0wkA7eIx6+PC 4hs1uqct96aM68sUQ+PHR zQJA6bRfcQTin TTBueR1kYLaaPvE5JRVtS eVtlX26bNOsWEueNr7baS qprIooNX1pPVQklingy64 4HiJln5slTRXe gIZdDGstYPP4U68wh9G5D XDuMMNnQPG5oFA5nB7elB lnbjogbGVmdDsgdmVydGl vCIcjTMayP688 IHRvcDsnPlBhdGllbnQgT nDeGJw6I0JeSzb7DSGsoM coMT4uiHPcZSgyLc8twAd cfTvmJI9zBMQo msecp328LdAci1ukLCJrj SCxBGmnYYI9Z89yy8A1HT TfOIDdAXL8jKS9cF5orLb nbjogbGVmdDsg skGllSxlLEzrPRopY542H HRvcDsnPkJpcnRoIERhdG P5JF63GQ63zNRdm5U2qCW 4Q8QnEVJikyti agnxwAT7ETIuNZSvsS23R b2avQthBm3mDIAoOEN8TD JjjNClZ8SpeZ4jSbNjCKP uFCMfQ8GxzDBz MGvzC743NJbbTnI9ROAex xTsS0TgNJOhsPemXjY2p0 W6Ar9VN5Q1TH86FQ73nRE yp8K1bGQ5X1Rt XKRgfosbgdodpNJ3BIKeE IAqbV00Wv0xrHcfVk2vIH VqELK8OWIqaBCzR3GyxG0 yOiAjMDAwMDAw K7BkbSVcUCwxB640WMifT lL9LOZwiiXcA6QjEEBldY haHrP2r0D0Zl3ORVu1GZ0 7WH20mKZec5B7 iRV8U9UjDGIwvtaeaofls XT6BQElEDUwyV88Xt1ydE ilZr3jEUClLDR3LJTwpCA dF3OgqV2uPwIp MTQtVGPxN8GzsNUzDBwiJ 821MYhxRrK2NLEzfhCgU1 MqNJDipKbkTyJ9e5C2Qq7 CQIWhLA91TKQ3 tAE8EZ69PT09X7GgRjzoy GFibGU+PHRhYmxlIHdpZH RoPScxMDAlJyBzdHlsZT0 xLu4gFTGaSOAt jKtjcKPpKtUzj6boNNEsQ OllXQ1xdIjhA0YilZX1VT Aqo0g0Fm31B63rM5XajPW +ZJBocUH7nEJ8 mN2kHtBdPoW4TEcdP830L xKugACnEzlzz7akd1fcsE o8ThP3ULLaioXagFaeHYK 2c5GoUy25E65f IHdpZHRoPSIxNSUiIHZhb Qitaz8mqK9iZy1+PGNvbC M7uIN4eH6kKjIwFyM8UUt fL371IkMehJVf Juuio1kwn4oloNw6DtHnY PMekiAogCmnDWA6v9EiDv 37M9PhzKxbp9BgKit7wv2 9lCGzu2A0qFY1 O3XoULJlddshgCBgwKryF A7hLSOgcgnfRPMnoH0hJJ XdS9h0YeHiRgA6NSveH3G rxkG6UOLppPUg OXvxSQY8T03kk3O0JTGaV PSqNBV9uBX9dE3jbSxlob ogbGVmdDsgdmVydGljYWw aDKxiP136KTYx aKipTYVbaY0oNFCqvVMsm AsxAO4dAVTmlznwOtuMCc IRZrpLN14xDDQIUFiETcE DOF57EG96qEZn u7W9jVY9A4HyNRSkkyets bmbsBC1NSVePNMynX72rN DjZHuhZx6sa5D6o766DEZ fCJLmhQ98Jr5n fOjxOSSzxCFAyU7iorcnh 6ewmryjAfYjSCAwBWi2RL f9HWNriNeeUuLaEUR9TbK 4VVQ1nOSagP7a rMjauadxoT6pVzn+MDMvM DMvMjAwMDwvdGQ+PHRkIH K0xPnyKChfYRKanZ5lBMP nH0t5NjFcVnL6 PJlcI5YqBAAcoyoaYo82d K9qElMfGzC6PGttW8Uhfw R4ZDLjpDTdLZtyGFY7Z93 qw2K0BWKxKQFs INH5uCU9gX8plEalqcyjh GVmdDsgdmVydGljYWwtYW ccI534HSAssKooGjSwYEh yOGGhWA28JJ71 ePSix5J9jDR3A8XgLAOyo qckwdoyjZH6GOQzRBHzaX 11jWDqZWquEo9xo0D1k88 4OPWvANIloC75 Sa1tcOdyDOZgfVMRsX0dl enlp5iqlbinPtZuUSCvML g3KSo7CVCdpJosMtTdCEV 3KbW7DPE3qWLt oJ5hjLeghabsmT8dYlx+R wKvWXqkZW16GK14dZFyv8 C7eZL4K7AzYCNsijdtxxl ptIK8SUAaKDYs qA53nDVcDHuhJu6il6Z7e 362QWUlHFVhiT06Se4hdU shWHZimJGPoJ9ywvnpd0t vcjogIzAwMDAw TVf1WFt6VBIkbImmSqRdT QJ0CdN8REV7iFLmzM8qoB jewpsbvK5yIdt+HN0orwq cxrD1HL53VK21 B3JgSsdqaWVobKX+PHRhY mxlIHdpZHRoPScxMDAlJy XihCdyJR6oPy8eHSTfWDY vbGxhcHNlOiBj e2fqBNLrVFmyOU2rvFucD 9JpjSI1KPHoq4k5Sv81T6 0rN3UtsZL+CCClpBO5wVE 4tU7qMySiCpM2 RApiD220YsHwjEVeEibez 4hwv8dtqVn7TcIuHXYpzb TkmGyeUMF0m4VbMh55K48 sIHdpZHRoPSIy MPCfXAPlkRvzvv4nfN6vX i8+RKMxhTB9zKZ1uG1aZe LlMoS0RPocQ083DsSeiQP oNggpY27uN3Hn dXA+HHTaYpt6UZBetXuzE V9spIQpVTwlLm3cQZV7Qz LcLkGnKBcfB8QdVGYtfxv iknpuwQT6FJHb FNOgaT98Vg6hvGdnQw2pB LSbUGN4RNCvzVLgH7OeeA 5tMoLoAJEdIAZqF0UrtZH oCTvqI906EXsf MwH6KSIzpyJvJ6QcNBLil WaeWwG0t8O9Sz8YyZkgfC AePZ8iUyVkYDs4E5VsPca 2LJBweRocYJ7h wAOoZXviBg8iyOikgIveB B3vAOUzgnhwd301AtOgr9 bxVSQoqBMdZFrfHNL7S49 fv4I0FPJhDNWk QZP5rXZ2lS8jgYsegqubx GVmdDsgdmVydGljYWwtYW xcZ398MNFzeMqjYcHWXas 3C1PxZbt4FTZl fPixUU8aqXMtIPllXa6as UhezIslPZ5eACUvkvbxn2 14SqCfa4eeGMHjrDWqEMc kDQD7Y26mu1B8 TMTkKKNgBKK3nUU6bQ9we GlnbjogbGVmdDsgdmVydG qzHZqnHGyxF338NJYcoXr uTj2RPsa9T1Wr Dqc2TCFxbJspRH1ftQNkW TuyXj6aaZydwZkcCF4oLV Twwzwrj370VdPwl4wyWMX wcHQgVGltZXM7 F93ab7F1HRDaJAGuEQW3u DQ2xI4edTpebhurbSPznY lpbsSlyKpgMBuoJZtnW31 6IHRvcDsnPlBh eWVyOjwvdGQ+SR99ki02A 1GdIeokJqe8PFLmGSB0wQ A6dD8cHEJzBXcbg9S3aRT 4C5VysfAiva8n b2xs (more content not included)... Normal [facility] Coding Summary. CD:[id number] G h0bWw+PGhlYWQ+DU9OHBD bD08fzAKeaZ6ZN7bCRP5S XFBDQQPVPK9HUU2riGI8W BagL8CvplNh VkeieWXxBT96HGe7CNY9w ShcEWtklD8qlQXkG1l3Uo QwPL02bG84SMeiQIKmEjJ 3LjZpbjsgbWFy U1tvVxJxyTDfGcs+PHRhY mxlIHdpZHRoPScxMDAlJy ThjCdoND2rBr6jSNAoHWU vbGxhcHNlOiBj j3bqCRLaAPlpIP9oxUirZ 0GjlPC2WYYgq7o7Oh69kP I+PBJbFGN4fBahTIqpj09 3WaTjw2fyUHQ3 wSCrJUqrGVP1N94nb5P1H KZwBCAqWHQ5fKT3cK2erM uaquxzM1OqtUQuHfW5RVV 1iDAboY9jiWlt ujafuV5uTmv+Y23SSB1VO XERTF0HVfi0Q5TzBimtrN I+CT72XQTrMR24uHTzuYX yb9lkiWf5YsGi HQBzBQC1vMkaNDskx3VsT HVrH55nlHCkg2D4AOQfbZ tozZJbKjBvzUQ8iE8pXDu hvtmwm9docmbl Csmwe2uwws81aO12E38qW IisRCOkYJV1ZERbIDXhkO aykg3nfR3cLh9+XRbei9r ws0jqlSk1FjEq CXCsafDjtDyjRCY2y4GvH p21W8KlrNyfp4DuUjt9va 15hWEwd8R3wIP7TLuqHUZ kkS7aGPczGjI1 JIEkWtCrnD54sJUsYBffU s2vhJoqcGtoDS2pAAMzhf fyFOHjmL5vLWVvhTAhbVl dXE9aPVAaohdq c817BwPhUGR7MPWvbAGkQ 8QgyT9yVmDdDOUyOMCuO2 HxwQZgHDttM112OWrbYfQ 2NWIflqJaV0Zc EIEdrChlYnS9i0I7Cq6Rf 2TdlthxEAZ3SMiaXIUmJs BrTqTwSgN5X2SzIiy9LWG lzTcyNV7oT8Ki PSDlkhxssyrbeTT2ANYgU TJhlV35zYPzBJxoBx2nj5 K2k133DUYuMYVhnH77Hy3 udDogMTBwdCBU wK7wvbpcp9damecbQhUkV IIpSNu5WRb0XESjsQqtMr MaIFW0MwA8KCZ7wGJwnZ7 xqYsotnvukC8n Oyc+A58aeJ1cALZ1QLW9e ypwZJXmuyMdZT00QJ76F5 RyPjwvdGFibGU+PGRpdiB tdZmrSC8qIaSv c2djv5BtGSjbH7PaVMDpP KxeQwn5MABjRIB8zYM5mK 4kHCXlSGqhx0P4cKF8F1B hzjIihz9vj7zm UXScANfeH18mrNMim8C3Y TDkvPV0FVPvaAgyArRfrU 93Oyc+CKEmuAffp1IjFpq xi2dax3hykXu3 ImDeTZIrjhEyhOqlWRY5r 0ZoKf75I05sNLheACIuBQ OgCHJrWNJfrBovro1bqM6 wIi8+PGNvbCB3 fGO9wO6kEUCxGxC6EIkfW 687WvPkyAApBorfh6vcm5 pahBy0XeBoNAQiyyDuoTb qAKB9n4LrXf01 D88mZDzpOGNoMPTbBZFvD HVuvWqgxr7yhB2vGz3+PC 7mn6usgd68wY47fWL+PHR sSVQ0aNwuACjy ZMLwcI2dDOjwAdT4SZVyJ cWntY05gQRdSTisKl5dgD voaItoWO1cBRCgesrra20 3GiLin0ehSIMj eBIdZRncCTY9K96de5E6W JNdSWEiBGK8tWI4wC0ejO lnbjogbGVmdDsgdmVydGl tOFwqKPfdV085 IHRvcDsnPlBhdGllbnQgT mGsSQg0H2DkSvo9SIWjmR lnEO9iuIDmGNioZy9mrWm bhFvuWG8eNHUn mqfbg851MpHmv2snVYSly QAwEEbnOVQ6L13et6B4DP RhGZZjQFG1jJA8nO1qgIi nbjogbGVmdDsg fpNhlNclBPjuZSlgV550I HRvcDsnPkJpcnRoIERhdG Z1PF63BX25eAUmb7N7mWM 5Y2PqKWCmcxmc cknzdIK9VDHsYXSdqZ27K k7wkOypRy3dSZEkYAD6DM FzjASgH0AyoS2gCvAoXUE fSORuW0DnjETa UOqrX101ZEhbDyY7AQDvf cMiC6MtOCWysMyrVcE7g6 V3Yw8VA5C8HM49AH86bGD zl4E3zMY8E2Lo WRVmgpkcgbqjnLH2NUEuC IJbcE22Mi1vpValMh3zLG CqKQS0GCVddYVhL2UjiN1 yOiAjMDAwMDAw O3JkfCRuXFyfH443ZKaiQ tO5NHRlxqOhR4DlAIPppD ceWwM7h5U9Py6HSPl0GH8 6TT13aGZal3Q0 vYB6V1KpATSlzocpsoohe IK1RDBvQGRlkD90Ie9wpO fsKb0wKMJbAGK8GQEdzDE tN2SwsG5tMnCt JJWuOHLeM7UbzJDjRGkcJ 593FOkyZpQ2ZZTmbxPvV5 DjDKKeoIqnWkZ7x0Y8Xo3 KWYPoPJ20WXL3 bNZ2JU03ZG16X6RiMnzpj GFibGU+PHRhYmxlIHdpZH RoPScxMDAlJyBzdHlsZT0 oAh3sNVCbMJJo dQqxqOYhGcEuv2vyCZLhH FeyIJ2keMiqE2GcmZK9XZ Kto1z7Ej54V79eY5DhwJJ +BDFxrTU4jBI2 uC2sIyOeRwH2ELqqA151M gDhjNEhSyvdh8sao2uumV j6GrZ5ZRPjmpSodBvdUTO 2j9VbEd80X38r IHdpZHRoPSIxNSUiIHZhb Zqasc8brG1eNu4+PGNvbC V9rDO1hM4fBcNhPdB3ILs zX049MzUxyIMv Ecnpe4hlq9mznGj8IgSuH IWlvfNbcDpiDKK1s9KbGx 85N1XfjEzat7VsJmo0mi4 6fPHlr2H6kRC7 L2YtERKgpikpqVJcsEaiD H7vDBZshgpkJSAoeS1kDX IjW4z9QjVcYzO6CHraH1O olxN9VVGsdWWg VYbzOFL3I01xm8Y0EUQxM BScEEX0uSO0jX6rsIgmnt ogbGVmdDsgdmVydGljYWw vGNimF585WOPj oEjxGNPamY7mBIMstUCqq SkzXB1oDRMweuajUwdODp YXPimLN11yOHXHFRlBHjZ KIQ99VR75mEGb e0U0uZI6W0SvWZDkycjij pgmmTA2LFQiVWPvvT21yL KbNDsgLm1mw8U1s021DHP tQCEofW92Rb8u jOykUZSfjADUmT5ebmzyr 9rjbjhdIpGrKHSvSBb7VS q7ZWXnvVjxOgMsTEL9KvQ 2OOO0xNMctI9g bBipqzgsyC8zBrm+MDMvM DMvMjAwMDwvdGQ+PHRkIH H5lWbcIQmbHRJooG2rSLM dA1r0ZhTeWyS9 QBwrD6MtGTAxkrxdGw19m T6wHoZxQqW0CDtyJ4Cehh K2EFZjwQXlCWqxYGS5N10 zh0O8DEMvERGk YWK4pQC3eT4dnVwpicfoy GVmdDsgdmVydGljYWwtYW dhA106AYCjoWanZoWvKZf gBNPoUE48GH17 aRDih8Y4mIB6R1GpLVLhz avqzacseVJ2PSIyDATtpY 58hDXyQUntBr8lp8K0m65 4MQXhDXLqkQ59 Vz7miTzbSHPtyCJBjG0da hlpr2vnrbajUaYyJCOdAJ a4JSm0CAXsoUgjNeRrARY 7LmV1VAJ5pABu oK0hbVrhmxilmC9pWyd+R fYxDOidQX31ET09rXFkb0 I4vJC1T0GnBFVyegwgbar sxAS2CCHrNFIh eW07yXAlJWhbMy9sx0W5a 651TCIqLPHkqQ00Ws6duR gsQGMawPNPtP7xppykd8h vcjogIzAwMDAw IXe3PDi1FSGolHccOcOtD MT5WqP0HTM8yEXzuT3kmM gdchwrjJ2qApr+HP7jtns yldW6BH70MN78 W2IvVhjtyFOfaIY+PHRhY mxlIHdpZHRoPScxMDAlJy QewVppOD0rRh9cAUNbGRO vbGxhcHNlOiBj c4yuUVFoKVbnTM0xtLygY 3EbgWJ2LLOah6v9Qe85N8 3lQ4ZdjQS+RGNdjZK6nRD 3nO6fSfAqVzS7 UJkbB486SdQohWBcBvtnx 6jqo8wzzRz2TcDeJTFtpq GghDfiBZH7e9AySe29T07 sIHdpZHRoPSIy RQNzFYGmeNnxqe9yhK9pA i8+YKKbrWE9qWE6sY4yKj EmFyB7TZrkQ392NoKuuQT mJsddL23vY6Wh dXA+HHKmSaq2TCEsoXsvQ V1ivBSdHUnzKp3qDRE7Aw NgLrAjCPejF7AmASRpipc lembuuKW5DQVy CKBozG40Qd4yaYlrBy0cF ZOpMTR7QMLtbJNaF6GgtI 1jSwQtCLPiFMPcQ1RokIK xJAjbF318OGfo FdT9SITetfOjP7EhKGPay UgdRyS3h6Q4Xi8UwBbwjT XuMP3aWdAyDHr2N2IlSdy 6RHJltFfrHV8e lNFrDMrnFg6xtAbwtSdbB S5qJINppxnbu548EdRxb7 seXNKfuUCkMAceQTG8Y11 oc0O6RALkFBZc XAK7mRA7xZ8zgDwhucwqw GVmdDsgdmVydGljYWwtYW lgJ826PIDtdQrhFwQKTzv 2J2MlUnw8UBPm uBlrCU7jfLLiEBzpZu7bf CbwcRimKR1lIKZlnnrom5 51LcPye1tuTDMifZIsYCu cRRH3O84mw2F7 FKFtOTLfKRN2dAX1mC8me GlnbjogbGVmdDsgdmVydG yfRGqkJVjpN109FCYlzFe vGl3TBut4U4Bz Ncb5VPMqsJorJF7jkVQsL LkoDk4adCvfoFuoRY6qJN Dsyqbzp687HwSmf3ctULT wcHQgVGltZXM7 W09or7Q4YTHjLSPrPLO2y JK7lX0weJkhntwttJDmuC tbexUsoYaiRZzlLQjoN85 6IHRvcDsnPlBh eWVyOjwvdGQ+BV30lt18H 0JwXhlxBqs4BPWvDMI7aA N9dZ4wQURtQMmhz8I9mNM 2G2LuhjPgyd7v b2xs (more content not included)... Normal [facility] Auto Diffon 08-12-2022 Basophils/100 WBC (Bld) 0.5 % Normal 0.0-2.0 [facility] Comment on above: Order Comment: Order Added by Discern Expert. Performed By: #### 2 [id number], [id number], [id number], [id number] ####[facility] [address] [place] [address] Basophils/Leukocytes Auto (Bld) [Pure # fraction] 0.1 E9/L Normal 0.0-0.2 [facility] Comment on above: Order Comment: Order Added by Discern Expert. Performed By: #### 2 634002, 7298013, [id number], [id number] ####[facility] [address] [place] [address] Eosinophils/100 WBC (Bld) 0.9 % Normal 0.0-8.0 [facility] Comment on above: Order Comment: Order Added by Discern Expert. Performed By: #### 2 679710, 2775861, 13454503, [id number] ####[facility] [address] [place] [address] Eosinophils/Leukocytes Auto (Bld) [Pure # fraction] 0.1 E9/L Normal 0.0-0.5 [facility] Comment on above: Order Comment: Order Added by Discern Expert. Performed By: #### 2 431662, 1034625, 32407915, [id number] ####[address] [address] Lymphocytes/100 WBC (Bld) 15.5 % Normal 14.0-50.0 [facility] Comment on above: Order Comment: Order Added by Discern Expert. Performed By: #### 2 416942, 6186363, 10221759, [id number] ####[address] [address] Lymphocytes/Leukocytes Auto (Bld) [Pure # fraction] 1.8 E9/L Normal 1.0-4.0 [facility] Comment on above: Order Comment: Order Added by Jamir Expert. Performed By: #### 2 094927, 1423205, 86534315, [id number] ####[address] [address] Monocytes/100 WBC (Bld) 8.9 % Normal 4.0-14.0 [facility] Comment on above: Order Comment: Order Added by Jamir Expert. Performed By: #### 2 376385, 5185972, [id number], 8339371 ####[address] [address] Monocytes/Leukocytes Auto (Bld) [Pure # fraction] 1.0 E9/L Normal 0.2-1.0 [facility] Comment on above: Order Comment: Order Added by Jamir Expert. Performed By: #### 2 614668, 6248803, [id number], 7549777 ####[address] [address] Neutrophils/100 WBC (Bld) 74.2 % Normal 36.0-75.0 [facility] Comment on above: Order Comment: Order Added by Jamir Expert. Performed By: #### 2 104087, 6398740, [id number], 5253775 ####[address] [place] [address] Neutrophils/Leukocytes Auto (Bld) [Pure # fraction] 8.5 E9/L High 2.0-7.5 [facility] Comment on above: Order Comment: Order Added by Discern Expert. Performed By: #### 2 414082, 9653117, 64896507, 3523084 ####[place] [id number] CBC w/ Auto Diffon Erythrocyte distribution width (RBC) [Ratio] 12.9 % Normal 10.9-14.2 [facility] Comment on above: Performed By: #### 2 453317, 7530221, 04585184, 9228308 ####[place] [id number] Hematocrit (Bld) [Volume fraction] 34.0 % Normal 34.0-46.0 [facility] Comment on above: Performed By: #### 2 518377, 4778532, 24280097, 2584856 ####[place] [address]2557 Hemoglobin (Bld) [Mass/Vol] 11.4 g/dL Low 12.0-16.0 [facility] Comment on above: Performed By: #### 2 027027, 4275949, 13031002, 9745752 ####[address] [address] MCH (RBC) [Entitic mass] 29.8 pg Normal 27.0-34.0 [facility] Comment on above: Performed By: #### 2 850409, 4814073, 12056445, 9574254 ####[address] [address] MCHC (RBC) [Mass/Vol] 33.5 g/dL Normal 31.4-36.[address] [facility] Comment on above: Performed By: #### 2 159408, 3006499, 72346978, 2573325 ####[address] [address] MCV (RBC) [Entitic vol] 88.9 fL Normal 80.0-100.0 [facility] Comment on above: Performed By: #### 2 602992, 9542094, 66484715, 9832120 ####[facility] [address] [place] [address] Platelet mean volume (Bld) [Entitic vol] 9.0 fL Normal 6.4-10.8 [facility] Comment on above: Performed By: #### 2 713903, 7125498, 44981466, 5865055 ####[facility] [address] [place] [address] Platelets (Bld) [#/Vol] 180.0 E9/L Normal 150.0-500.0 [facility] Comment on above: Performed By: #### 2 624102, 8378558, 62233650, 7819108 ####[address] [address] RBC (Bld) [#/Vol] 3.8 E12/L Low 4.3-5.9 [facility] Comment on above: Performed By: #### 2 733264, 4627094, 66111329, 5865580 ####[facility] [address] [place] [address] WBC corrected for nucl RBC Auto (Bld) [#/Vol] 11.5 E9/L High 4.0-11.0 [facility] Comment on above: Performed By: #### 2 685761, 4296003, 35736476, 6606999 ####[facility] [address] [place] [address] CHEMISTRYOrdered By: SYSTEM SYSTEM on 08-12-2022 Albumin [Mass/Vol] 3.8 g/dL Normal 3.3 - 5.0 gm/dL [facility] Albumin/Globulin [Mass ratio] 1.3 {ratio} Normal 1.1 - 2.2 [facility] ALP [Catalytic activity/Vol] 44 [iU]/d Normal 21 - 98 Int._Unit/L [facility] ALT No additional P-5'-P [Catalytic activity/Vol] 25 [iU]/d Normal 6 - 46 Int._Unit/L [facility] Anion gap [Moles/Vol] 11 mmol/L Normal 6 - 16 mEq/L [facility] AST [Catalytic activity/Vol] 22 [iU]/d Normal 5 - 43 Int._Unit/L [facility] Bilirubin [Mass/Vol] 0.5 mg/dL Normal 0.0 - 1 .1 mg/dL [facility] Calcium [Mass/Vol] 9.0 mg/dL Normal 8.9 - 11. 1 mg/dL [facility] Chloride [Moles/Vol] 106 mmol/L Normal 101 - 1 11 mmol/L [facility] CO2 [Moles/Vol] 24 mmol/L Normal 21 - 31 mmol/L [facility] Creatinine [Mass/Vol] 1.0 mg/dL Normal 0.5 - 1.3 mg/dL [facility] GFR/1.73 sq M.predicted among blacks MDRD (S/P/Bld) [Vol rate/Area] mL/min/1.73 m2 Normal >=59mL/min/1 .73 m2 [facility] Chem S GFR/1.73 sq M.predicted among non-blacks MDRD (S/P/Bld) [Vol rate/Area] mL/min/1.73 m2 Normal >=59mL/min/1 .73 m2 [facility] Chem S Globulin (S) [Mass/Vol] 2.9 g/dL Normal 1.4 - 4.0 gm/dL [facility] Remisol Glucose [Mass/Vol] 107 mg/dL Normal 55 - 199 mg/dL [facility] Rem[facility] Potassium [Moles/Vol] 3.6 mmol/L Normal 3.5 - 5.3 mmol/L [facility] Remisol Protein [Mass/Vol] 6.7 g/dL Normal 6.0 - 7.8 gm/dL [facility] Remisol Sodium [Moles/Vol] 137 mmol/L Normal 135 - 145 mmol/L [facility] Remisol Urea nitrogen [Mass/Vol] 11 mg/dL Normal 5 - 21 mg/dL [facility] Remisol Urea nitrogen/Creatinine [Mass ratio] 11 mg/mg Normal 10 - 20 [facility] Remisol CMPon 08-12-2022 Albumin [Mass/Vol] 3.8 g/dL Normal 3.3-5.0 [facility] Comment on above: Performed By: #### 2 [id number], [id number], [id number], [id number] ####[facility] [address] [place] [address] Albumin/Globulin (S) [Mass conc ratio] 1.3 Normal 1.1-2.2 [facility] Comment on above: Performed By: #### 2 [id number], [id number], [id number], [id number] ####[facility] [address] [place] [address] ALP [Catalytic activity/Vol] 44 Int._Unit/L Normal 21-98 [facility] Comment on above: Performed By: #### 2 [id number], [id number], [id number], [id number] ####[facility] [address] [place] [address] ALT No additional P-5'-P [Catalytic activity/Vol] 25 Int._Unit/L Normal 6-46 [facility] Comment on above: Performed By: #### 2 019027, [id number], [id number], [id number] ####[facility] [address] [place] [address] AST [Catalytic activity/Vol] 22 Int._Unit/L Normal 5-43 [facility] Comment on above: Performed By: #### 2 748002, 1839054, [id number], [id number] ####[facility] [address] [place] [address] Bilirubin [Mass/Vol] 0.5 mg/dL Normal 0.0-1.1 [facility] Comment on above: Performed By: #### 2 437575, 2984632, [id number], [id number] ####[facility] [address] [place] [address] Creatinine [Mass/Vol] 1.0 mg/dL Normal 0.5-1.[address] [facility] Comment on above: Performed By: #### 2 452402, [id number], [id number], 4247508 ####[facility] [address] [place] [address] Globulin (S) [Mass/Vol] 2.9 g/dL Normal 1.4-4.0 [facility] Comment on above: Performed By: #### 2 537211, 7476341, [id number], [id number] ####[facility] [address] [place] [address] Protein [Mass/Vol] 6.7 g/dL Normal 6.0-7.8 [facility] Comment on above: Performed By: #### 2 994353, 4090948, [id number], [id number] ####[facility] [address] [place] [address] Urea nitrogen [Mass/Vol] 11 mg/dL Normal 5-21 [facility] Comment on above: Performed By: #### 2 697992, 6966345, 57708676, 9565055 ####[facility] [address] [place] [address] Urea nitrogen/Creatinine [Mass ratio] 11 No Units Normal 10-20 [facility] Comment on above: Performed By: #### 2 294739, 3423894, [id number], [id number] ####[facility] [address] [place] [address] Anion gap [Moles/Vol] 11 mmol/L Normal 6-[address] [facility] Comment on above: Performed By: #### 2 420865, 7920459, 18832887, 2631368 ####[facility] [address] [place] [address] Calcium [Mass/Vol] 9.0 mg/dL Normal 8.9-11.1 [facility] Comment on above: Performed By: #### 2 008841, 7920516, 46347274, 8318949 ####[facility] [address] [place] [address] Chloride [Moles/Vol] 106 mmol/L Normal 101-111 [facility] Comment on above: Performed By: #### 2 591014, 2686192, 38929824, 0981917 ####[facility] [address] [place] [address] CO2 [Moles/Vol] 24 mmol/L Normal 21-31 [facility] Comment on above: Performed By: #### 2 354539, 2362766, 71869092, 5335511 ####[facility] [address] [place] [address] Glucose [Mass/Vol] 107 mg/dL Normal 55-199 [facility] Comment on above: Result Comment: If t his glucose result represents a fasting glucose, interpretation should refer to the following reference range: 55-99 mg/dL Performed By: #### 2 523632, 2698734, 66843092, 7091950 ####[facility] [address] [place] [address] Potassium [Moles/Vol] 3.6 mmol/L Normal 3.5-5.[address] [facility] Comment on above: Performed By: #### 2 685748, 3678119, 77651374, 0611758 ####[facility] [address] [place] [address] Sodium [Moles/Vol] 137 mmol/L Normal 135-145 [facility] Comment on above: Performed By: #### 2 751516, 9086787, 41741510, 4205679 ####[facility] [address] [place] [address] Consent for Treatmenton 07-16 Consent for Treatment [id number] .[id number]:127 Normal [facility] Discharge Instructionson Discharge Instructions [id number] 1.00CD:127 Normal [facility] ED Clinical Summaryon 2021 ED Clinical Summary [address] [address] ED Clinical Summary Person Information Name: TRINA NELSON/Clarence Age: 21 Years : 2000 Sex: Female Language: Hungarian PCP: Pascale Rodríguez MD Marital Status: Single Visit Id: Visit Reason: Nausea; Flank pain; BACK AND LOWER ABD PAIN Speciality: Acuity: 4 Enc Type: Emergency Med Service: Emergency Arrival: 08/11/2022 23:20:26 Discharge: 08/12/2022 01:12:06 LOS: 000 01:52 Checkin: 08/11/2022 23:20:26 Checkout: 08/12/2022 01:12:06 Dispo Type: Home (Routine DC) EVENTS: Event Name Event Status Request Date/Time Start Date/Time Complete Date/Time Arrive Complete 08/11/2022 23:20:26 08/11/2022 23:20:26 08/11/2022 23:20:26 Document Home Meds Request 08/11/2022 23:20:26 Triage Complete 08/11/2022 23:20:26 08/11/2022 23:27:04 08/11/2022 23:27:04 Bed Assign Complete 08/11/2022 23:25:02 08/11/2022 23:25:02 08/11/2022 23:25:02 Dr Exam Complete 08/11/2022 23:25:02 08/11/2022 23:33:25 08/11/2022 23:33:25 RN Exam Complete 08/11/2022 23:25:02 08/11/2022 23:40:08 08/11/2022 23:40:08 Registration Complete 08/11/2022 23:33:25 08/11/2022 23:48:30 08/11/2022 23:48:30 Reg Complete Request 08/11/2022 23:48:30 Reg Bed Request Complete 08/11/2022 23:48:30 08/11/2022 23:48:30 08/11/2022 23:48:30 Pending Labs Complete 08/11/2022 23:55:08 08/12/2022 00:38:29 Lab Complete 08/11/2022 23:55:08 08/12/2022 00:38:29 Urine Collect Complete 08/11/2022 23:55:08 08/12/2022 00:33:28 Meds Admin Request 08/11/2022 23:55:08 Meds Admin Complete 08/11/2022 23:58:28 08/12/2022 00:19:04 X-Ray Complete 08/12/2022 00:01:11 08/12/2022 00:07:02 08/12/2022 00:27:18 Pending Labs Complete 08/12/2022 00:21:01 08/12/2022 00:21:01 08/12/2022 00:38:31 Lab Complete 08/12/2022 00:21:01 08/12/2022 00:21:01 08/12/2022 00:38:31 Pending Labs Complete 08/12/2022 00:26:25 08/12/2022 00:26:25 08/12/2022 00:26:33 Lab Complete 08/12/2022 00:26:25 08/12/2022 00:26:25 08/12/2022 00:26:33 Wet Read Request 08/12/2022 00:27:18 Meds Admin Complete 08/12/2022 00:48:41 08/12/2022 01:05:22 Discharge Complete 08/12/2022 00:50:15 08/12/2022 01:12:11 08/12/2022 01:12:11 Transfer Complete 08/12/2022 01:12:12 08/12/2022 01:12:12 08/12/2022 01:12:12 ADDRESS: [facility] [address] [id number] [facility] NOTES: MEDICAL INFORMATION: Prescriptions Given: Medications to Continue Taking That Have Changed Printed Prescriptions START: acetaminophen-hydroco done ([place] 325 mg-5 mg oral tablet) 1 Tablets By Mouth every 6 hours as needed for pain. Refills: 0. START: ondansetron (Zofran 4 mg Tab) 1 Tablets By Mouth every 8 hours as needed Nausea/Vomiting. Refills: 0. Other Medications START: acetaminophen-hydroco done (acetaminophen-hydroc odone 325 mg-5 mg oral tablet) 1 Tablets By Mouth every 4 hours as needed for pain. Refills: 0. START: ondansetron (ondansetron 4 mg Dis Tab) 1 Tablets By Mouth every 6 hours. Refills: 0. Medications to Continue with No Changes Other Medications dicyclomine (Bentyl 10 mg Cap) 2 Capsules By Mouth 4 times a day. Refills: 0. naproxen (Naprosyn 500 mg Tab) 1 Tablets By Mouth 2 times a day. Refills: 0. pantoprazole (pantoprazole 40 mg Oral EC Tab) 1 Tablets By Mouth every day. Refills: 0. tamsulosin (tamsulosin 0.4 mg Cap) 1 Capsules By Mouth every day. Refills: 0. PATIENT EDUCATION INFORMATION: Instructions: Kidney Stones, Zjes-iq-Mmaw Follow up: With: Address: When: Светлана Vigil In 3 days 08/15/2022 Comments: You can use the pain medication every 6 hours as needed for pain. Please follow-up with your primary care doctor next 2 to 3 days for further evaluation and management. Please return to the ED for any new or worsening symptoms. With: Address: When: Pascale Rodríguez In 3 days DIAGNOSIS: Renal colic on right side Normal [facility] ED Note-Physicianon 08-12-20 22 ED Note-Physician Basic Information Time Seen: Wilmar Rogel DO Pollo 08/11/2022 23:33 Chief Complaint complains of right flank pain. states dx with kidney stone a couple days ago. taking naprosyn with minimal relief. nausea. History of Present Illness Patient is a 21-year-old female presenting to the ED for evaluation of right flank pain. Patient was seen at this facility several days ago diagnosed with a kidney stone. Patient states she was doing well was pain-free yesterday however today started having worsening pain. Patient states she is been taking apart naproxen that was prescribed with minimal relief of her symptoms. Has had several episodes of vomiting today. Denies any fevers, chills, chest pain, shortness of breath, dizziness or lightheadedness. Patient states the pains feels similar to when she was here initially. Review of Systems General: Denied fever, chills, weight loss HEENT: Denied Congestion, rhinorrhea, sore throat Cardiac: Denied Chest pain, palpitations, dizziness/lightheaded ness Respiratory: Denied Dyspnea, cough Abdominal: Denied abdominal pain, diarrhea, constipation, + right flank pain, nausea, vomiting : Denied dysuria, hematuria Extremities: Denied leg swelling, leg pain, calf tenderness Neuro: Denied Focal neurologic deficits, vision changes, difficulty with speech Integumentary: Denied rashes or lesions Physical Exam Vitals & Measurements T: 36.6 ?C(Oral) HR: 79(Peripheral) RR: 16 BP: 122/82 SpO2: 100% HT: 156 cm WT: 38.6 kg BMI: 15.86 General: Well developed, non toxic appearing, no acute distress HEENT: Head atraumatic, Mucosa moist, hearing grossly normal Neck: No JVD, tracheal deviation Cardiac: Regular rate, rhythm, no murmurs, or gallops, 2+ radial pulses Respiratory: Lungs clear to auscultation B/L, normal respiratory effort Abdomen: Soft non tender, no rebound or guarding, no peritoneal signs, right CVA tenderness Extremities: No edema noted in the LE B/L, no tenderness to palpation Neurologic: Alert and oriented, speech clear Skin: No rashes or lesions Psych: Appropriate mood and behavior Medical Decision Making Patient is a 21-year-old female presenting to the ED for evaluation of right flank pain. Patient is nontoxic-appearing on arrival, no distress. Mild right CVA tenderness on examination. Imaging is reviewed she did have a kidney stone with hydronephrosis she was here earlier in the week. We will recheck labs x-rays obtained shows moderate stool burden but otherwise no obvious acute process. Patient is given Toradol, Zofran, IV fluids. Patient's laboratory evaluations unremarkable. X-ray does not reveal any acute process. On reevaluation patient reports improvement of her pain. She is given a [place] in the ED and [place] to go. She states she called the urologist however they were unable to get her in until September. She is given the name of another urologist. She is to return to the ED for any new or worsening symptoms. Assessment/Plan Renal colic on right side (N23: Unspecified renal colic) Orders: acetaminophen-hydroco done, 1 tab(s), Tab, Oral, Once, Stop date 08/12/22 0:48:00 EDT, STAT, Start date 08/12/22 0:48:00 EDT acetaminophen-hydroco done, 1 EA, Tab, Oral, Once, Stop date 08/12/22 0:48:00 EDT, STAT, Start date 08/12/22 0:48:00 EDT acetaminophen-hydroco done, 1 tab(s), Oral, q6hr for pain, 12 tab(s), Refill(s) 0 ketorolac, 30 mg = 1 mL, Injection, IV Push, Once, Stop date 08/11/22 23:54:00 EDT, STAT, Start date 08/11/22 23:54:00 EDT, 08/11/22 23:54:00 EDT ondansetron, 4 mg = 1 tab(s), Oral, q8hr, PRN Nausea/Vomiting, # 12 tab(s), Refills(s) 0 ondansetron, 4 mg = 2 mL, Injection, IV Push, Once, Stop date 08/11/22 23:58:00 EDT, STAT, Start date 08/11/22 23:58:00 EDT, 08/11/22 23:58:00 EDT Sodium Chloride 0.9% intravenous solution 1,000 mL, 1,000 mL, IV, 983.61 mL/hr, for 30 day(s), Stop date 09/10/22 23:53:00 EST, STAT, Start date 08/11/22 23:54:00 EDT, 61 minute(s), Total volume (mL): 1,000, 38.6 kg, 1.29, m2 Automated Diff CBC w/ Auto Diff Comprehensive Metabolic Panel eGFR U Beta Hcg Qual UA With Cult Reflex XR Abdomen 1 View Medications Administered Given Sodium Chloride 0.9% IV Alma Rosa 1000 mL 1,000 mL, 1000 mL, IV ketorolac 30 mg/mL Inj 1 mL, 30 mg, IV Push Zofran 4 mg/2 mL Injection, 4 mg, IV Push Disposition Plan Discharge Prescription List Prescriptions [place] 325 mg-5 mg oral tablet, 1 tab(s), Oral, q6hr, PRN Zofran 4 mg Tab, 4 mg= 1 tab(s), Oral, q8hr, PRN Follow-up With When Contact Information Светлана Lue In 3 days 08/15/2022 EDT Additional Instructions: You can use the pain medication every 6 hours as needed for pain. Please follow-up with your primary care doctor next 2 to 3 days for further evaluation and management. Please return to the ED for any new or worsening symptoms. Pascalejean-paul Rodríguez In 3 days Additional Instructions: Patient Education Kidney Stones, Yqkj-co-Vhcw Problem List/Past Medical History Ongoing Smoker Historical (more content not included)... Normal [facility] Comment on above: Result Comment: Elec tronically Signed By: Wilmar Rogel DO\.br\Date and Time Signed: 08/12/22 00:53 EDT ED Patient Education Noteon 08-12-2022 ED Patient Education Note Urology Kidney Stones Kidney stones are rock-like masses that form inside of the kidneys. Kidneys are organs that make pee (urine). A kidney stone may move into other parts of the urinary tract, including: ? The tubes that connect the kidneys to the bladder (ureters). ? The bladder. ? The tube that carries urine out of the body (urethra). Kidney stones can cause very bad pain and can block the flow of pee. The stone usually leaves your body (passes) through your pee. You may need to have a doctor take out the stone. What are the causes? Kidney stones may be caused by: ? A condition in which certain glands make too much parathyroid hormone (primary hyperparathyroidism). ? A buildup of a type of crystals in the bladder made of a chemical called uric acid. The body makes uric acid when you eat certain foods. ? Narrowing (stricture) of one or both of the ureters. ? A kidney blockage that you were born with. ? Past surgery on the kidney or the ureters, such as gastric bypass surgery. What increases the risk? You are more likely to develop this condition if: ? You have had a kidney stone in the past. ? You have a family history of kidney stones. ? You do not drink enough water. ? You eat a diet that is high in protein, salt (sodium), or sugar. ? You are overweight or very overweight (obese). What are the signs or symptoms? Symptoms of a kidney stone may include: ? Pain in the side of the belly, right below the ribs (flank pain). Pain usually spreads (radiates) to the groin. ? Needing to pee often or right away (urgently). ? Pain when going pee (urinating). ? Blood in your pee (hematuria). ? Feeling like you may vomit (nauseous). ? Vomiting. ? Fever and chills. How is this treated? Treatment depends on the size, location, and makeup of the kidney stones. The stones will often pass out of the body through peeing. You may need to: ? Drink more fluid to help pass the stone. In some cases, you may be given fluids through an IV tube put into one of your veins at the hospital. ? Take medicine for pain. ? Make changes in your diet to help keep kidney stones from coming back. Sometimes, medical procedures are needed to remove a kidney stone. This may involve: ? A procedure to break up kidney stones using a beam of light (laser) or shock waves. ? Surgery to remove the kidney stones. Follow these instructions at home: Medicines ? Take rezl-nfx-pvuoizt and prescription medicines only as told by your doctor. ? Ask your doctor if the medicine prescribed to you requires you to avoid driving or using heavy machinery. Eating and drinking ? Drink enough fluid to keep your pee pale yellow. You may be told to drink at least 8?10 glasses of water each day. This will help you pass the stone. ? If told by your doctor, change your diet. This may include: ? Limiting how much salt you eat. ? Eating more fruits and vegetables. ? Limiting how much meat, poultry, fish, and eggs you eat. ? Follow instructions from your doctor about eating or drinking restrictions. General instructions ? Collect pee samples as told by your doctor. You may need to collect a pee sample: ? 24 hours after a stone comes out. ? 8?12 weeks after a stone comes out, and every 6?12 months after that. ? Strain your pee every time you pee (urinate), for as long as told. Use the strainer that your doctor recommends. ? Do not throw out the stone. Keep it so that it can be tested by your doctor. ? Keep all follow-up visits as told by your doctor. This is important. You may need follow-up tests. How is this prevented? To prevent another kidney stone: ? Drink enough fluid to keep your pee pale yellow. This is the best way to prevent kidney stones. ? Eat healthy foods. ? Avoid certain foods as told by your doctor. You may be told to eat less protein. ? Stay at a healthy weight. Where to find more information ? National Kidney Foundation (NKF): www.kidney.org ? [employer] (UCF): www.urologyhealth.org Contact a doctor if: ? You have pain that gets worse or does not get better with medicine. Get help right away if: ? You have a fever or chills. ? You get very bad pain. ? You get new pain in your belly (abdomen). ? You pass out (faint). ? You cannot pee. Summary ? Kidney stones are rock-like masses that form inside of the kidneys. ? Kidney stones can cause very bad pain and can block the flow of pee. ? The stones will often pass out of the body through peeing. ? Drink enough fluid to keep your pee pale yellow. This information is not intended to replace advice given to you by your health care provider. Make sure you discuss any questions you have with your health care provider. Document Released: 03/18/2009 Document Revised: 02/16/2020 Document Reviewed: 02/16/2020 [employer] Patient Education ? 2019 [employer] Normal [facility] ED Patient Summaryon 022 ED Patient Summary [place] [id number] Patient Discharge Instructions Person Information Name: TRINA NELSON Age: 21 Years Arrival Date: 08/11/2022 23:20:26 Discharge Diagnosis: Renal colic on right side Primary Care Physician: Pascale Rodríguez MD Provider Information Primary Provider: Wilmar Rogel DO Advanced Spanish Language Lecturer:None The exam and treatment you received in the Emergency Department were for an urgent problem and are not intended as complete care. It is important that you follow up with a doctor, nurse practitioner, or physician?s early childhood teacher assistant for ongoing care. If your symptoms become worse or you do not improve as expected and you are unable to reach your usual health care provider, you should return to the Emergency Department. We are available 24 hours a day. TRINA NELSON has been given the following list of patient education materials, prescriptions and follow-up instructions: Follow-up Instructions: With: Address: When: Светлана Vigil In 3 days 08/15/2022 Comments: You can use the pain medication every 6 hours as needed for pain. Please follow-up with your primary care doctor next 2 to 3 days for further evaluation and management. Please return to the ED for any new or worsening symptoms. With: Address: When: Pascale Rodríguez In 3 days In the event that this physician does not participate in your insurance network, please consult with your insurance company to find a nearby participating provider. Patient Education Materials: Kidney Stones, Yumy-zy-Bwia A MESSAGE TO ALL PATIENTS REGARDING OPIOIDS PRESCRIPTION OPIOIDS: WHAT YOU NEED TO KNOW Prescription opioids can be used to help relieve mrcoutju-xd-crqdey pain and are often prescribed following a surgery or injury, or for certain health conditions. These medications can be an important part of the treatment but also come with serious risks. It is important to work with your healthcare provider to make sure you are getting the safest, most effective care. WHAT ARE THE RISKS AND SIDE EFFECTS OF OPIOID USE? Prescription opioids carry serious risks of addiction and overdose, especially with prolonged use. An opioid overdose, often marked by slowed breathing, can cause sudden . The use of prescription opioids can have a number of side effects as well, even when taken as directed: ? Tolerance?meaning you might need to take more of the medication for the same pain relief ? Physical dependence?meaning you have symptoms of withdrawal when a medication is stopped ? Increased sensitivity to pain ? Constipation ? Nausea, vomiting, and dry mouth ? Sleepiness and dizziness ? Confusion ? Depression ? Low levels of testosterone that can result in lower sex drive, energy, and strength ? Itching and sweating RISKS ARE GREATER WITH: ? History of drug misuse, substance use disorder, or overdose ? Mental health conditions (such as depression or anxiety) ? Sleep apnea ? Older age (65 years and older) ? Avoid alcohol while taking prescription opioids. Also, unless specifically advised by your health care provider, medications to avoid include: ? Benzodiazepines (such as Xanax or Valium) ? Muscle relaxants (such as Soma or Flexeril) ? Hypnotics (such as Ambien or Lunesta) ? Other prescription opioids KNOW YOUR OPTIONS Talk to your health care provider about ways to manage your pain that don?t involve prescription opioids. Some of these options may actually work better and have fewer risks and side effects. Options may include: ? Pain relievers such as acetaminophen, ibuprofen, and naproxen ? Some medication that are also used for depression or seizures ? Physical therapy and exercise ? Cognitive behavioral therapy, a psychological, goal-directed approach, in which patients learn how to modify physical, behavioral, and emotional triggers of pain and stress. IF YOU ARE PRESCRIBED OPIOIDS FOR PAIN: ? Never take opioids in greater amounts or more often than prescribed. ? Follow up with your primary health care provider. o Work together to create a plan on how to manage your pain. o Talk about ways to help manage your pain that don?t involve prescription opioids. o Talk about any and all concerns and side effects. ? Help prevent misuse and abuse o Never sell or share prescription opioids. o Never use another person?s prescription opioids. ? Store prescription opioids in a secure place and out of reach of others (this may include visitors, children, friends, and family). ? Safely dispose of unused prescription opioids: Find your community drug take-back program or your pharmacy mail-back program, or flush them down the toilet, following guidance from the Food and Drug Administration (www.fda.gov/Drugs/Re sourcesForYou). ? Visit www.cdc.gov/drugoverd ose to learn about (more content not included)... Normal [facility] HEMATOLOGYOrdered By: SYSTEM SYSTEM on 08-12-2022 Basophils/100 WBC (Bld) 0.5 % Normal 0.0 - 2.0 % [facility] HemeAutoSS Basophils/Leukocytes Auto (Bld) [Pure # fraction] 0.1 E9/L Normal 0.0 - 0.2 E9/L [facility]AutoSS Eosinophils/100 WBC (Bld) 0.9 % Normal 0.0 - 8.0 % [facility]eAutoSS Eosinophils/Leukocytes Auto (Bld) [Pure # fraction] 0.1 E9/L Normal 0.0 - 0.5 E9/L [facility] Lymphocytes/100 WBC (Bld) 15.5 % Normal 14.0 - 50.0 % [facility]eAutoSS Lymphocytes/Leukocytes Auto (Bld) [Pure # fraction] 1.8 E9/L Normal 1.0 - 4.0 E9/L [facility]eAuto[facility] Monocytes/100 WBC (Bld) 8.9 % Normal 4.0 - 14.0 % [facility]eAutoSS Monocytes/Leukocytes Auto (Bld) [Pure # fraction] 1.0 E9/L Normal 0.2 - 1.0 E9/L [facility] Neutrophils/100 WBC (Bld) 74.2 % Normal 36.0 - 75.0 % [facility]eAutoSS Neutrophils/Leukocytes Auto (Bld) [Pure # fraction] 8.5 E9/L High 2.0 - 7.5 E9/L [facility] HEMATOLOGYOrdered By: Dione Roberts on 08-12-2022 Erythrocyte distribution width (RBC) [Ratio] 12.9 % Normal 10.9 - 14.2 % [facility]Auto[facility] Hematocrit (Bld) [Volume fraction] 34.0 % Normal 34.0 - 46.0 % [facility] Hemoglobin (Bld) [Mass/Vol] 11.4 g/dL Low 12.0 - 16.0 gm/dL [facility] MCH (RBC) [Entitic mass] 29.8 pg Normal 27.0 - 34.0 pg [facility] MCHC (RBC) [Mass/Vol] 33.5 g/dL Normal 31.4 - 36.0 gm/dL [facility]Auto[facility] MCV (RBC) [Entitic vol] 88.9 fL Normal 80.0 - 100.0 fL [facility]Auto[facility] Platelet mean volume (Bld) [Entitic vol] 9.0 fL Normal 6.4 - 10.8 fL [facility]eAutoSS Platelets (Bld) [#/Vol] 180.0 E9/L Normal 150.0 - 500.0 E9/L [facility] RBC (Bld) [#/Vol] 3.8 E12/L Low 4.3 - 5.9 E12/L [facility] WBC corrected for nucl RBC Auto (Bld) [#/Vol] 11.5 E9/L High 4.0 - 11.0 E9/L [facility]eAuto[facility] Prescriptions/Work Noteson Prescriptions/Work Notes [id number]# 1.00CD:127 Normal [facility] U BetaHcg Qualon 08-12-2022 HCG.beta subunit (U) [Moles/Vol] Negative Normal [facility] Comment on above: Performed By: #### 1 [id number], [id number] ####[facility] [address] [place] [address] UA With Cult Reflexon 2021 Bacteria LM Ql (Urine sed) TRACE Normal Trace [facility] Comment on above: Performed By: #### 1 [id number], [id number] ####[facility] [address] [place] [address] Bilirubin Ql (U) Negative Normal Negative [facility] Comment on above: Performed By: #### 1 [id number], [id number] ####[address] [address] Clarity (U) CLEAR Normal Clear [facility] Comment on above: Performed By: #### 1 [id number], [id number] ####[address] [address] Color (U) YELLOW Normal Yellow [facility] Comment on above: Performed By: #### 1 [id number], [id number] ####[address] [address] Crystals LM Ql (Urine sed) Present Normal [facility] Comment on above: Performed By: #### 1 [id number], [id number] ####[address] [address] Epithelial cells.squamous LM.HPF (Urine sed) [#/Area] 3-4 Normal 0-2 [facility] Comment on above: Performed By: #### 1 [id number], [id number] ####[address] [address] Glucose Test strip (U) [Mass/Vol] Negative Normal Negative [facility] Comment on above: Performed By: #### 1 [id number], [id number] ####[address] [address] Hemoglobin Ql (U) TRACE Abnormal Negative [facility] Comment on above: Performed By: #### 1 [id number], [id number] ####[address] [address] Ketones (U) [Mass/Vol] Negative Normal Negative [facility] Comment on above: Performed By: #### 1 [id number], [id number] ####[address] [address] Loco.plasma/Loco .RBC (Bld) [Mass ratio] 0-3 Normal 0-3 [facility] Comment on above: Performed By: #### 1 [id number], [id number] ####[address] [address] Nitrite Ql (U) Negative Normal Negative [facility] Comment on above: Performed By: #### 1 [id number], [id number] ####[place] [id number] pH (U) 7.0 [pH] Invalid Interpretation Code 5.0-9.0 [facility] Comment on above: Performed By: #### 1 [id number], [id number] ####[address] [address] Protein (U) [Mass/Vol] Negative Normal Negative [facility] Comment on above: Performed By: #### 1 [id number], [id number] ####[address] [address] Specific gravity (U) [Rel density] 1.010 Invalid Interpretation Code 1.005-1.030 [facility] Comment on above: Performed By: #### 1 [id number], [id number] ####[address] [address] Type of Urine collection method Clean Catch Normal [facility] Comment on above: Performed By: #### 1 [id number], [id number] ####[address] [address] Urobilinogen Qn (U) 0.2 {Lian'U}/dL Normal 0.0-1.0 [facility] Comment on above: Performed By: #### 1 [id number], [id number] ####[facility] [address] [place] [address] WBC Auto Ql (U) TRACE Abnormal Negative [facility] Comment on above: Performed By: #### 1 [id number], [id number] ####[facility] [address] [place] [address] WBC LM.HPF (Urine sed) [#/Area] 0-5 Normal 0-5 [facility] Comment on above: Performed By: #### 1 [id number], [id number] ####[facility] [address] [place] [address] XR Abdomen 1 Viewon 08-12-20 XR Abdomen 1 View Exam Date/Time: 08/12/2022 00:27 EDT Reason for Exam: Kidney stone Report IMPRESSION: 3 MM CALCULUS, RIGHT PELVIC INLET. GIVEN CLINICAL HISTORY, CANNOT EXCLUDE RIGHT URETERAL CALCULUS. CLINICAL HISTORY: Kidney stone COMPARISON: NONE. FINDINGS: Gas and stool in colon. No diffuse small bowel dilatation. No mass effect. Nonspecific 3 mm calcification right pelvic inlet. No calcifications identified over region of right and left kidneys. Osseous structures intact. FINAL REPORT Dictated: 08/12/2022 8:55 am Spike Lopez MD Signed (Electronic Signature): 08/12/2022 8:55 am Signed by: Spike Lopez MD Transcribed by: DARREN Technologist: AZAR Normal [facility] eGFRon 08-12-2022 GFR/1.73 sq M.predicted among blacks MDRD (S/P/Bld) [Vol rate/Area] mL/min/{1.73_m2} Normal >=59 [facility] Comment on above: Order Comment: Order added by Discern Expert. Result Comment: eGFR is race adjusted. AA=. Performed By: #### 2 [id number], [id number], [id number], [id number] ####[facility] [address] [place] [address] GFR/1.73 sq M.predicted among non-blacks MDRD (S/P/Bld) [Vol rate/Area] mL/min/{1.73_m2} Normal >=59 [facility] Comment on above: Order Comment: Order added by Discern Expert. Result Comment: Pool Lifeguard erin kidney disease could be indicated at eGFR's of less than 60 mL/min/1.73m2. Kidney failure is indicated at less than 15 mL/min/1.73m2. Performed By: #### 2 [id number], [id number], [id number], [id number] ####[facility] [address] [place] [address] Prescriptions/Work Noteson 1 Prescriptions/Work Notes [id number] #1.00CD:127 Normal [facility] SEROLOGYOrdered By: Lissa Roberts on 08-11-2022 HCG.beta subunit (U) [Moles/Vol] Negative Normal [facility] URINALYSISOrdered By: Dione Roberts on 08-11-2022 Bacteria LM Ql (Urine sed) Trace /HPF Normal Trace/HPF [facility] UA Auto SS Bilirubin Ql (U) Negative (08/11/22 11:46 PM) Normal Negative [facility] UA Auto SS Clarity (U) Clear (08/11/22 11:46 PM) Normal Clear [facility] UA Auto SS Color (U) Yellow (08/11/22 11:46 PM) Normal Yellow [facility] UA Auto SS Crystals LM Ql (Urine sed) Present (08/11/22 11:46 PM) Normal [facility] UA Auto SS Epithelial cells.squamous LM.HPF (Urine sed) [#/Area] 3-4 /HPF Normal 0-2/HPF [facility] UA Aut o SS Glucose Test strip (U) [Mass/Vol] Negative (08/11/22 11:46 PM) Normal Negative [facility] UA Auto SS Hemoglobin Ql (U) Trace *ABN* (08/11/22 11:46 PM) Invalid Interpretation Code Negative [facility] UA Auto SS Ketones (U) [Mass/Vol] Negative (08/11/22 11:46 PM) Normal Negative [facility] UA Auto SS Loco.plasma/Loco .RBC (Bld) [Mass ratio] 0-3 /HPF Normal 0-3/HPF [facility] UA Auto SS Nitrite Ql (U) Negative (08/11/22 11:46 PM) Normal Negative [facility] UA Auto SS pH (U) 7.0 *NA* (08/11/22 11:46 PM) Invalid Interpretation Code 5.0 - 9.0 [facility] UA Auto SS Protein (U) [Mass/Vol] Negative (08/11/22 11:46 PM) Normal Negative [facility] UA Auto SS Specific gravity (U) [Rel density] 1.010 *NA* (08/11/22 11:46 PM) Invalid Interpretation Code 1.005 - 1.030 [facility] UA Auto SS UA Spec Desc Clean Catch (08/11/22 11:46 PM) Normal [facility] UA Auto SS Urobilinogen Qn (U) 0.6232953 {Lian'U}/dL Normal 0.0 - 1.0 EU/dL [facility] UA Auto SS WBC Auto Ql (U) Trace *ABN* (08/11/22 11:46 PM) Invalid Interpretation Code Negative [facility] UA Auto SS WBC LM.HPF (Urine sed) [#/Area] 0-5 /HPF Normal 0-5/HPF [facility] UA Auto SS CT Abdomen/Pelvis w/ Contras ton 08-09-2022 CT Abdomen/Pelvis w/ Contrast Exam Date/Time: 08/08/2022 21:32 EDT Reason for Exam: Abdominal pain, acute, nonlocalized;Other (please specify) Report IMPRESSION: CALCULUS DISTAL RIGHT URETER, WITH ASSOCIATED OBSTRUCTIVE UROPATHY.. CLINICAL HISTORY: Abdominal pain, acute, nonlocalized. COMMENT: Images were obtained following the administration of Intravenous contrast. There is a calculus in the distal right ureter near the uterovesical junction, with a greatest diameter of approximately 0.6 cm. There is quite prominent dilatation of the right ureter and renal pelvicalyceal system proximal to this calculus. No significant perinephric nor periureteral stranding is noted. On the delayed images, there is excreted contrast in right renal calyces and pelvis but not in the ureter. Aside from hydronephrosis, the right kidney is otherwise unremarkable. The left kidney is unremarkable in appearance. The left renal collecting system is not dilated. The liver, spleen, pancreas, gallbladder, and adrenal glands appear normal. No retroperitoneal lymphadenopathy is evident. The abdominal aorta is normal in diameter. No aneurysm is noted. Evaluation of bowel is limited. The bowel loops are not dilated, and there is no evidence of bowel obstruction. The appendix is normal. Fecal material in the colon limits evaluation. There is no evidence of diverticulitis. No abdominal inflammatory complex nor free air nor free fluid is noted. The uterus is anteverted. There is a dominant left ovarian cyst, 1.8 cm in diameter, with peripheral contrast enhancement. There is prominence of pelvic venous structures bilaterally. No pelvic mass nor pelvic lymphadenopathy is noted. The visualized bones are unremarkable. All CT scans at this facility use dose modulation, iterative reconstruction, and/or weight based dosing when appropriate to reduce radiation dose to as low as reasonably achievable. FINAL REPORT Dictated: 08/09/2022 8:30 am Aaron Schwartz M.D. Signed (Electronic Signature): 08/09/2022 8:30 am Signed by: Aaron Schwartz M.D. Transcribed by: DARREN Technologist: ORB Technical Comments GFR (mL/min/1/73m2) >60 Contrast: Isovue 300 Contrast amount in ml's: 100 Rectal Contrast Given? No Normal [facility] Discharge Instructionson Discharge Instructions [id number] .00CD:127 Normal [facility] ED Clinical Summaryon 2021 ED Clinical Summary [place] [id number] ED Clinical Summary Person Information Name: TRINA NELSON [facility] Age: 21 Years : 2000 Sex: Female Language: Hungarian PCP: Pascale Rodríguez MD Marital Status: Single Visit Id: Visit Reason: Nausea; Abdominal pain; Flank pain; BACK PAIN Speciality: Acuity: 3 Enc Type: Emergency Med Service: Emergency Arrival: 08/08/2022 19:33:19 Discharge: 08/08/2022 22:44:30 LOS: 000 03:11 Checkin: 08/08/2022 19:33:19 Checkout: 08/08/2022 22:44:30 Dispo Type: Home (Routine DC) EVENTS: Event Name Event Status Request Date/Time Start Date/Time Complete Date/Time Arrive Complete 08/08/2022 19:33:19 08/08/2022 19:33:19 08/08/2022 19:33:19 Document Home Meds Request 08/08/2022 19:33:19 Triage Complete 08/08/2022 19:33:19 08/08/2022 19:39:06 08/08/2022 19:39:06 Bed Assign Complete 08/08/2022 19:39:13 08/08/2022 19:39:13 08/08/2022 19:39:13 Dr Exam Complete 08/08/2022 19:39:13 08/08/2022 19:40:18 08/08/2022 19:40:18 RN Exam Complete 08/08/2022 19:39:13 08/08/2022 20:01:46 08/08/2022 20:01:46 Registration Complete 08/08/2022 19:40:18 08/08/2022 20:00:51 08/08/2022 20:00:51 Dr Exam Complete 08/08/2022 19:41:29 08/08/2022 19:41:29 08/08/2022 19:41:29 Meds Admin Complete 08/08/2022 19:51:41 08/08/2022 19:58:05 Pending Labs Complete 08/08/2022 19:51:41 08/08/2022 21:11:38 Lab Complete 08/08/2022 19:51:41 08/08/2022 21:11:38 Urine Collect Complete 08/08/2022 19:51:41 08/08/2022 21:11:38 CT Complete 08/08/2022 19:51:41 08/08/2022 21:12:52 08/08/2022 21:32:35 Pending Labs Complete 08/08/2022 19:59:16 08/08/2022 19:59:16 08/08/2022 20:23:15 Lab Complete 08/08/2022 19:59:16 08/08/2022 19:59:16 08/08/2022 20:23:15 Reg Complete Request 08/08/2022 20:00:51 Reg Bed Request Complete 08/08/2022 20:00:51 08/08/2022 20:00:51 08/08/2022 20:00:51 Pending Labs Complete 08/08/2022 20:06:20 08/08/2022 20:06:20 08/08/2022 20:06:29 Lab Complete 08/08/2022 20:06:20 08/08/2022 20:06:20 08/08/2022 20:06:29 Meds Admin Complete 08/08/2022 21:57:15 08/08/2022 22:17:26 Patient Care Request 08/08/2022 22:16:29 Meds Admin Complete 08/08/2022 22:16:29 08/08/2022 22:25:07 Discharge Complete 08/08/2022 22:20:12 08/08/2022 22:44:36 08/08/2022 22:44:36 Transfer Complete 08/08/2022 22:44:36 08/08/2022 22:44:36 08/08/2022 22:44:36 ADDRESS: [facility] [place] [id number] PHYS DOC NOTES: MEDICAL INFORMATION: Prescriptions Given: New Medications [id number], [address] [place], [place] [id number], [phone] acetaminophen-hydroco done (acetaminophen-hydroc odone 325 mg-5 mg oral tablet) 1 Tablets By Mouth every 4 hours as needed for pain. Refills: 0. naproxen (Naprosyn 500 mg Tab) 1 Tablets By Mouth 2 times a day. Refills: 0. ondansetron (ondansetron 4 mg Dis Tab) 1 Tablets By Mouth every 6 hours. Refills: 0. tamsulosin (tamsulosin 0.4 mg Cap) 1 Capsules By Mouth every day. Refills: 0. Medications to Continue with No Changes Other Medications dicyclomine (Bentyl 10 mg Cap) 2 Capsules By Mouth 4 times a day. Refills: 0. pantoprazole (pantoprazole 40 mg Oral EC Tab) 1 Tablets By Mouth every day. Refills: 0. PATIENT EDUCATION INFORMATION: Instructions: Kidney Stones Follow up: With: Address: When: [facility], [address] [place] [address] Xeros (1) In 3 days 08/11/2022 With: Address: When: Pascale Rodríguez In 3 days 08/11/2022 DIAGNOSIS: Kidney stone Normal [facility] ED Note-Physicianon 08-09-20 ED Note-Physician Basic Information Time Seen: Nino James PA-C 08/08/2022 19:40 Chief Complaint pt to ED with c/o R flank/abd pain wtih nausea. pain is constant per pt. denies v/d, denies fevers and denies urinary complaints. History of Present Illness Patient is a 21-year-old female with no significant past medical history who presents the ED complaining of 10 hours of right-sided flank pain radiating to her groin. Patient states that her symptoms began suddenly this morning. Patient also complains of nausea and vomiting. Patient complains of nonbloody nonbilious emesis. Patient states her symptoms of nausea and vomiting began about an hour or 2 after the onset of her pain. Patient states that her pain has been steady. Patient denies any urinary symptoms such as burning, hematuria, urgency. Patient denies any bowel changes. Patient states that she has had no appetite today. Patient states that she has been tolerating some p.o. fluids. Patient denies a past history of similar symptoms. Patient denies any history of kidney stones. Patient denies any possibility of . Patient states that she has been taking Motrin for symptoms with little relief. Family history: Reviewed and noncontributory Social history: Reviewed and noncontributory Review of Systems Full 10 system ROS performed. Pt denies symptoms except as noted above in the HPI. Physical Exam Vitals & Measurements T: 36.7 ?C(Oral) HR: 53(Peripheral) RR: 16 BP: 101/62 SpO2: 100% HT: 154 cm WT: 46 kg BMI: 19.4 General: Patient is nontoxic-appearing but clearly uncomfortable lying in bed clutching at her right side Skin: Pt skin is warm and dry, no rashes or lesions appreciated HEENT: Atraumatic, normocephalic. Clear sclera. PERRLA. Extraocular movements grossly intact. Pulmonary: Breathing normally, no respiratory distress, no retractions, lungs CTAB Cardiovascular: Regular rate and rhythm, no murmurs/gallops/rubs. Distal pulses palpable in upper and lower extremities bilaterally Gastrointestinal: +BSX4. Abdomen soft, nondistended, diffusely tender to palpation. No peritoneal signs present. Genitourinary: Patient without CVA tenderness to percussion bilaterally Musculoskeletal: Pt has full ROM Neurological: Pt is alert and oriented. Sensation grossly intact in upper and lower extremities bilaterally. Lymphatic: No lymphadenopathy appreciated. No peripheral edema appreciated Psychiatric: Pt is cooperative, communicative, appropriately reactive Medical Decision Making In ED reviewed and noted. Patient CT scan showed mild right hydronephrosis and severe hydroureter to the level of the 6.3 x 5 mm obstructing calculus in the distal right ureter just proximal to the urinary bladder. Additional punctate nonobstructing calculus within the ureter. Patient pain well controlled in the ED with NSAIDs and opioids. Patient nausea well controlled with antiemetics. Patient discussed with urologist on-call, Dr. Hawthorne. Dr. Hawthorne stated patient was appropriate for discharge to home with follow-up in 2 to 3 days outpatient. Patient instructed to strain urine. Patient given prescriptions for NSAID, opioid, tamsulosin, and antiemetic. Patient agreeable with plan, feels comfortable returning home. Return precautions discussed extensively with patient. Patient return to ED with intractable pain, intractable nausea and vomiting, or any other concerning symptoms. Patient with stable vitals throughout stay in ED. Patient questions answered. Patient discharged home. Assessment/Plan Kidney stone (N20.0: Calculus of kidney) Orders: acetaminophen-hydroco done, 1 EA, Tab, Oral, Once, Stop date 08/08/22 22:15:00 EDT, STAT, Start date 08/08/22 22:15:00 EDT acetaminophen-hydroco done, 1 tab(s), Oral, q4hr for pain, 8 tab(s), Refill(s) 0, [facility] #[id number], 154, cm, 08/08/22 19:39:00 EDT, Height/Length Dosing, 46, kg, 08/08/22 19:39:00 EDT, Weight Dosing ketorolac, 30 mg = 1 mL, Injection, IV Push, Once, Stop date 08/08/22 21:57:00 EDT, STAT, Start date 08/08/22 21:57:00 EDT, 08/08/22 21:57:00 EDT morphine, 2 mg = 1 mL, Injection, IV Push, Once, Stop date 08/08/22 19:51:00 EDT, STAT, Start date 08/08/22 19:51:00 EDT, 08/08/22 19:51:00 EDT naproxen, 500 mg = 1 tab(s), Oral, BID, # 20 tab(s), Refills(s) 0, Pharmacy: [facility] #[id number], 154, cm, 08/08/22 19:39:00 EDT, Height/Length Dosing, 46, kg, 08/08/22 19:39:00 EDT, Weight Dosing ondansetron, 4 mg = 2 mL, Injection, IV Push, Once, Stop date 08/08/22 19:51:00 EDT, STAT, Start date 08/08/22 19:51:00 EDT, 08/08/22 19:51:00 EDT ondansetron, 4 mg = 1 tab(s), Oral, q6hr, # 12 tab(s), Refills(s) 0, Pharmacy: [facility] #[id number], 154, cm, 08/08/22 19:39:00 EDT, Height/Length Dosing, 46, kg, 08/08/22 19:39:00 EDT, Weight Dosing ondansetron, 4 mg = 1 tab(s), Tab-Dis, Oral, Once, Stop date 08/08/22 22:15:00 EDT, STAT, Start date 08/08/22 22:15:00 EDT, 08/08/22 22:15:00 EDT Sodium Chloride 0.9% intravenous solution, 1,000 mL, Soln-IV, IV, Once, Stop date 08/08/22 19:51:00 EDT, STAT, S (more content not included)... Normal [facility] Comment on above: Result Comment: Elec tronically Signed By: Erika HERNANDEZ, Nino Brenner\.br\Date and Time Signed: 08/08/22 23:52 EDT\.br\Electronically Co-Signed By: Wilmar Rogel DO\.br\Date and Time Co-Signed: 08/09/22 00:34 EDT ED Patient Education Noteon 08-09-2022 ED Patient Education Note Urology Kidney Stones Kidney stones are solid, rock-like deposits that form inside of the kidneys. The kidneys are a pair of organs that make urine. A kidney stone may form in a kidney and move into other parts of the urinary tract, including the tubes that connect the kidneys to the bladder (ureters), the bladder, and the tube that carries urine out of the body (urethra). As the stone moves through these areas, it can cause intense pain and block the flow of urine. Kidney stones are created when high levels of certain minerals are found in the urine. The stones are usually passed out of the body through urination, but in some cases, medical treatment may be needed to remove them. What are the causes? Kidney stones may be caused by: ? A condition in which certain glands produce too much parathyroid hormone (primary hyperparathyroidism), which causes too much calcium buildup in the blood. ? A buildup of uric acid crystals in the bladder (hyperuricosuria). Uric acid is a chemical that the body produces when you eat certain foods. It usually exits the body in the urine. ? Narrowing (stricture) of one or both of the ureters. ? A kidney blockage that is present at (congenital obstruction). ? Past surgery on the kidney or the ureters, such as gastric bypass surgery. What increases the risk? The following factors may make you more likely to develop this condition: ? Having had a kidney stone in the past. ? Having a family history of kidney stones. ? Not drinking enough water. ? Eating a diet that is high in protein, salt (sodium), or sugar. ? Being overweight or obese. What are the signs or symptoms? Symptoms of a kidney stone may include: ? Pain in the side of the abdomen, right below the ribs (flank pain). Pain usually spreads (radiates) to the groin. ? Needing to urinate frequently or urgently. ? Painful urination. ? Blood in the urine (hematuria). ? Nausea. ? Vomiting. ? Fever and chills. How is this diagnosed? This condition may be diagnosed based on: ? Your symptoms and medical history. ? A physical exam. ? Blood tests. ? Urine tests. These may be done before and after the stone passes out of your body through urination. ? Imaging tests, such as a CT scan, abdominal X-ray, or ultrasound. ? A procedure to examine the inside of the bladder (cystoscopy). How is this treated? Treatment for kidney stones depends on the size, location, and makeup of the stones. Kidney stones will often pass out of the body through urination. You may need to: ? Increase your fluid intake to help pass the stone. In some cases, you may be given fluids through an IV and may need to be monitored at the hospital. ? Take medicine for pain. ? Make changes in your diet to help prevent kidney stones from coming back. Sometimes, medical procedures are needed to remove a kidney stone. This may involve: ? A procedure to break up kidney stones using: ? A focused beam of light (laser therapy). ? Shock waves (extracorporeal shock wave lithotripsy). ? Surgery to remove kidney stones. This may be needed if you have severe pain or have stones that block your urinary tract. Follow these instructions at home: Medicines ? Take bjbr-[id number] and prescription medicines only as told by your health care provider. ? Ask your health care provider if the medicine prescribed to you requires you to avoid driving or using heavy machinery. Eating and drinking ? Drink enough fluid to keep your urine pale yellow. You may be instructed to drink at least 8?10 glasses of water each day. This will help you pass the kidney stone. ? If directed, change your diet. This may include: ? Limiting how much sodium you eat. ? Eating more fruits and vegetables. ? Limiting how much animal protein?such as red meat, poultry, fish, and eggs?you eat. ? Follow instructions from your health care provider about eating or drinking restrictions. General instructions ? Collect urine samples as told by your health care provider. You may need to collect a urine sample: ? 24 hours after you pass the stone. ? 8?12 weeks after passing the kidney stone, and every 6?12 months after that. ? Strain your urine every time you urinate, for as long as directed. Use the strainer that your health care provider recommends. ? Do not throw out the kidney stone after passing it. Keep the stone so it can be tested by your health care provider. Testing the makeup of your kidney stone may help prevent you from getting kidney stones in the future. ? Keep all follow-up visits as told by your health care provider. This is important. You may need follow-up X-rays or ultrasounds to make sure that your stone has passed. How is this prevented? To prevent another kidney stone: ? Drink enough fluid to keep your urine pale yellow. This is the best way to prevent kidney stones. ? Eat a healthy diet and follow (more content not included)... Normal [facility] ED Patient Summaryon ED Patient Summary [address] [address] Patient Discharge Instructions Person Information Name: TRINA NELSON Age: 21 Years Arrival Date: 08/08/2022 19:33:19 Discharge Diagnosis: Kidney stone Primary Care Physician: Pascale Rodríguez MD Provider Information Primary Provider: Wilmar Rogel DO Advanced Spanish Language Lecturer:Nino James PA-C The exam and treatment you received in the Emergency Department were for an urgent problem and are not intended as complete care. It is important that you follow up with a doctor, nurse practitioner, or physician?s early childhood teacher assistant for ongoing care. If your symptoms become worse or you do not improve as expected and you are unable to reach your usual health care provider, you should return to the Emergency Department. We are available 24 hours a day. TRINA NELSON has been given the following list of patient education materials, prescriptions and follow-up instructions: Follow-up Instructions: With: Address: When: [facility], [address] [place] [address] Business (1) In 3 days 08/11/2022 With: Address: When: Pascale Rodríguez In 3 days 08/11/2022 In the event that this physician does not participate in your insurance network, please consult with your insurance company to find a nearby participating provider. Patient Education Materials: Kidney Stones A MESSAGE TO ALL PATIENTS REGARDING OPIOIDS PRESCRIPTION OPIOIDS: WHAT YOU NEED TO KNOW Prescription opioids can be used to help relieve shjjzqhr-ce-yzikqc pain and are often prescribed following a surgery or injury, or for certain health conditions. These medications can be an important part of the treatment but also come with serious risks. It is important to work with your healthcare provider to make sure you are getting the safest, most effective care. WHAT ARE THE RISKS AND SIDE EFFECTS OF OPIOID USE? Prescription opioids carry serious risks of addiction and overdose, especially with prolonged use. An opioid overdose, often marked by slowed breathing, can cause sudden . The use of prescription opioids can have a number of side effects as well, even when taken as directed: ? Tolerance?meaning you might need to take more of the medication for the same pain relief ? Physical dependence?meaning you have symptoms of withdrawal when a medication is stopped ? Increased sensitivity to pain ? Constipation ? Nausea, vomiting, and dry mouth ? Sleepiness and dizziness ? Confusion ? Depression ? Low levels of testosterone that can result in lower sex drive, energy, and strength ? Itching and sweating RISKS ARE GREATER WITH: ? History of drug misuse, substance use disorder, or overdose ? Mental health conditions (such as depression or anxiety) ? Sleep apnea ? Older age (65 years and older) ? Avoid alcohol while taking prescription opioids. Also, unless specifically advised by your health care provider, medications to avoid include: ? Benzodiazepines (such as Xanax or Valium) ? Muscle relaxants (such as Soma or Flexeril) ? Hypnotics (such as Ambien or Lunesta) ? Other prescription opioids KNOW YOUR OPTIONS Talk to your health care provider about ways to manage your pain that don?t involve prescription opioids. Some of these options may actually work better and have fewer risks and side effects. Options may include: ? Pain relievers such as acetaminophen, ibuprofen, and naproxen ? Some medication that are also used for depression or seizures ? Physical therapy and exercise ? Cognitive behavioral therapy, a psychological, goal-directed approach, in which patients learn how to modify physical, behavioral, and emotional triggers of pain and stress. IF YOU ARE PRESCRIBED OPIOIDS FOR PAIN: ? Never take opioids in greater amounts or more often than prescribed. ? Follow up with your primary health care provider. o Work together to create a plan on how to manage your pain. o Talk about ways to help manage your pain that don?t involve prescription opioids. o Talk about any and all concerns and side effects. ? Help prevent misuse and abuse o Never sell or share prescription opioids. o Never use another person?s prescription opioids. ? Store prescription opioids in a secure place and out of reach of others (this may include visitors, children, friends, and family). ? Safely dispose of unused prescription opioids: Find your community drug take-back program or your pharmacy mail-back program, or flush them down the toilet, following guidance from the Food and Drug Administration (www.fda.gov/Drugs/Re sourcesForYou). ? Visit www.cdc.gov/drugoverd ose to learn about the risks of opioids abuse and overdose. ? If you believe you may be struggling with addiction, tell your health disabilities caregiver and ask fo (more content not included)... Normal [facility] Auto Diffon 08-08-2022 Basophils/100 WBC (Bld) 0.1 % Normal 0.0-2.0 [facility] Comment on above: Order Comment: Order Added by Discern Expert. Performed By: #### 2 560565, 9763610, 84284977, 7637759, 7550739, 8544903, 56535146 #### [facility] Laboratory [address] [place] [address] Basophils/Leukocytes Auto (Bld) [Pure # fraction] 0.0 E9/L Normal 0.0-0.2 [facility] Comment on above: Order Comment: Order Added by Discern Expert. Performed By: #### 2 751573, 4378794, 02638533, 2797094, 4326074, 6187431, 57515896 #### [facility] Laboratory [address] [place] [address] Eosinophils/100 WBC (Bld) 0.0 % Normal 0.0-8.0 [facility] Comment on above: Order Comment: Order Added by Discern Expert. Performed By: #### 2 983149, 6344013, 32288048, 8674143, 1223379, 7243607, 41885173 #### [facility] [address] [place] [address] Eosinophils/Leukocytes Auto (Bld) [Pure # fraction] 0.0 E9/L Normal 0.0-0.5 [facility] Comment on above: Order Comment: Order Added by Discern Expert. Performed By: #### 2 350517, 6866419, 59925817, 9350709, 5215125, 9945161, 96257722 #### [facility] [address] [place] [address] Lymphocytes/100 WBC (Bld) 4.9 % Low 14.0-50.0 [facility] Comment on above: Order Comment: Order Added by Discern Expert. Performed By: #### 2 994407, 4120453, 66937770, 0801164, 9746951, 3510343, 50774907 #### [facility] [address] [place] [address] Lymphocytes/Leukocytes Auto (Bld) [Pure # fraction] 0.5 E9/L Low 1.0-4.0 [facility] Comment on above: Order Comment: Order Added by Jamir Expert. Performed By: #### 2 056301, 4641727, 79507908, 1344558, 1386719, 6166366, 60595253 #### [facility] [address] [place] [address] Monocytes/100 WBC (Bld) 2.5 % Low 4.0-14.0 [facility] Comment on above: Order Comment: Order Added by Jamir Expert. Performed By: #### 2 046424, 2637428, 64561713, 1040289, 6943356, 6983696, 78615688 #### [facility] [address] [place] [address] Monocytes/Leukocytes Auto (Bld) [Pure # fraction] 0.3 E9/L Normal 0.2-1.0 [facility] Comment on above: Order Comment: Order Added by Jamir Expert. Performed By: #### 2 451861, 7013702, 22928123, 5957617, 5689883, 4831831, 16905415 #### [facility] [address] [place] [address] Neutrophils/100 WBC (Bld) 92.5 % High 36.0-75.0 [facility] Comment on above: Order Comment: Order Added by Discern Expert. Performed By: #### 2 061714, 7253719, 36497152, 4138353, 2832914, 5530069, 17642790 #### [facility] [address] [place] [address] Neutrophils/Leukocytes Auto (Bld) [Pure # fraction] 9.7 E9/L High 2.0-7.5 [facility] Comment on above: Order Comment: Order Added by Discern Expert. Performed By: #### 2 713863, 7762512, 67838645, 6308691, 2682723, 9522365, 07238588 #### [facility] [address] [place] [address] B hCG Qualon 08-08-2022 Beta hCG Ql Negative Normal [facility] Comment on above: Performed By: #### 2 269048, 2953840, 88108243, 1098923, 1457222, 1625685, 95244411 ####[facility] [address] [place] [address] BMPon 08-08-2022 Creatinine [Mass/Vol] 0.9 mg/dL Normal 0.5-1.[address] [facility] Comment on above: Performed By: #### 2 711172, 3116675, 11060610, 2156709, 1722487, 4763830, 80597457 #### [facility] [address] [place] [address] Urea nitrogen [Mass/Vol] 14 mg/dL Normal 5-21 [facility] Comment on above: Performed By: #### 2 896132, 0641893, 00357982, 3665381, 7336225, 5593012, 92388161 #### [facility] [address] [place] [address] Urea nitrogen/Creatinine [Mass ratio] 16 No Units Normal 10-20 [facility] Comment on above: Performed By: #### 2 912801, 8747963, 35355368, 7252626, 4316766, 1608827, 71776933 #### [facility] [address] [place] [address] Anion gap [Moles/Vol] 16 mmol/L Normal 6-[address] [facility] Comment on above: Performed By: #### 2 915352, 4753776, 57622824, 3853257, 4113591, 6635812, 02739525 #### [facility] [address] [place] [address] Calcium [Mass/Vol] 9.6 mg/dL Normal 8.9-11.1 [facility] Comment on above: Performed By: #### 2 203330, 4790843, 26947946, 6476587, 0289870, 5360945, 48484776 #### [facility] [address] [place] [address] Chloride [Moles/Vol] 102 mmol/L Normal 101-111 [facility] Comment on above: Performed By: #### 2 009447, 5966881, 68180954, 7507651, 8645599, 2328641, 51032482 #### [facility] [address] [place] [address] CO2 [Moles/Vol] 24 mmol/L Normal 21-31 [facility] Comment on above: Performed By: #### 2 013827, 5056183, 50157434, 4663500, 1625214, 2249559, 33459836 #### [facility] [address] [place] [address] Glucose [Mass/Vol] 113 mg/dL Normal 55-199 [facility] Comment on above: Result Comment: If t his glucose result represents a fasting glucose, interpretation should refer to the following reference range: 55-99 mg/dL Performed By: #### 2 336570, 9991670, 91221532, 9473068, 1942398, 0234649, 68348614 #### [facility] [address] [place] [address] Potassium [Moles/Vol] 3.9 mmol/L Normal 3.5-5.[address] [facility] Comment on above: Performed By: #### 2 788557, 3268200, 12247487, 7887814, 5543574, 8519566, 67170793 #### [facility] [address] [place] [address] Sodium [Moles/Vol] 138 mmol/L Normal 135-145 [facility] Comment on above: Performed By: #### 2 667420, 7510549, 53809989, 0063459, 9667318, 8659285, 57133530 #### [facility] [address] [place] [address] CBC w/ Auto Diffon Erythrocyte distribution width (RBC) [Ratio] 13.3 % Normal 10.9-14.2 [facility] Comment on above: Performed By: #### 2 179870, 8650363, 53434473, 1343724, 7643238, 9855578, 15784455 #### [facility] [address] [place] [address] Hematocrit (Bld) [Volume fraction] 40.0 % Normal 34.0-46.0 [facility] Comment on above: Performed By: #### 2 007830, 6234414, 80866633, 9989989, 1760629, 5806240, 78927235 #### [facility] [address] [place] [address] Hemoglobin (Bld) [Mass/Vol] 13.7 g/dL Normal 12.0-16.0 [facility] Comment on above: Performed By: #### 2 922889, 1376420, 89170384, 7931473, 7447590, 5084320, 41248658 #### [facility] [address] [place] [address] MCH (RBC) [Entitic mass] 30.2 pg Normal 27.0-34.0 [facility] Comment on above: Performed By: #### 2 106145, 3866186, 64307911, 7765580, 5679922, 8515172, 39003508 #### [facility] [address] [place] [address] MCHC (RBC) [Mass/Vol] 34.2 g/dL Normal 31.4-36.[address] [facility] Comment on above: Performed By: #### 2 584837, 6567039, 93339475, 7547940, 9422151, 0487308, 36139800 #### [facility] Laboratory [address] [place], [place] [address] MCV (RBC) [Entitic vol] 88.1 fL Normal 80.0-100.0 [facility] Comment on above: Performed By: #### 2 745750, 0907438, 57683222, 0849389, 8479883, 0210004, 99727166 #### [facility] Laboratory [address] [place] [address] Platelet mean volume (Bld) [Entitic vol] 9.0 fL Normal 6.4-10.8 [facility] Comment on above: Performed By: #### 2 216211, 9969355, 07772363, 7793931, 3670458, 0721643, 81570980 #### [facility] [address] [place], [place] [address] Platelets (Bld) [#/Vol] 220.0 E9/L Normal 150.0-500.0 [facility] Comment on above: Performed By: #### 2 551509, 8928613, 38194072, 1226188, 6075347, 4784350, 56832792 #### [facility] [address] [place] [address] RBC (Bld) [#/Vol] 4.5 E12/L Normal 4.3-5.9 [facility] Comment on above: Performed By: #### 2 672099, 8891106, 39263540, 6145263, 4575868, 7539639, 58654299 #### [facility] [address] [place] [address] WBC corrected for nucl RBC Auto (Bld) [#/Vol] 10.4 E9/L Normal 4.0-11.0 [facility] Comment on above: Performed By: #### 2 239030, 5183826, 53348482, 7708522, 9935583, 2320810, 21922476 #### [facility] [address] [place] [address] CHEMISTRYOrdered By: SYSTEM SYSTEM on 08-08-2022 Albumin [Mass/Vol] 4.5 g/dL Normal 3.3 - 5.0 gm/dL [facility] Albumin/Globulin [Mass ratio] 1.2 {ratio} Normal 1.1 - 2.2 [facility] ALP [Catalytic activity/Vol] 56 [iU]/d Normal 21 - 98 Int._Unit/L [facility] ALT No additional P-5'-P [Catalytic activity/Vol] 28 [iU]/d Normal 6 - 46 Int._Unit/L [facility] Anion gap [Moles/Vol] 16 mmol/L Normal 6 - 16 mEq/L F [facility] AST [Catalytic activity/Vol] 29 [iU]/d Normal 5 - 43 Int._Unit/L [facility] Bilirubin [Mass/Vol] 0.7 mg/dL Normal 0.0 - 1 .1 mg/dL [facility] Bilirubin.direct [Mass/Vol] 0.1 mg/dL Normal 0.1 - 0.4 mg/dL [facility] Bilirubin.indirect [Mass or moles/Vol] 0.6 mg/dL Normal 0.1 - 0.9 mg/dL [facility] Calcium [Mass/Vol] 9.6 mg/dL Normal 8.9 - 11. 1 mg/dL [facility] Chloride [Moles/Vol] 102 mmol/L Normal 101 - 1 11 mmol/L [facility] CO2 [Moles/Vol] 24 mmol/L Normal 21 - 31 mmol/L [facility] Creatinine [Mass/Vol] 0.9 mg/dL Normal 0.5 - 1.3 mg/dL [facility] GFR/1.73 sq M.predicted among blacks MDRD (S/P/Bld) [Vol rate/Area] mL/min/1.73 m2 Normal >=59mL/min/1 .73 m2 [facility] Chem S GFR/1.73 sq M.predicted among non-blacks MDRD (S/P/Bld) [Vol rate/Area] mL/min/1.73 m2 Normal >=59mL/min/1 .73 m2 [facility] Chem S Globulin (S) [Mass/Vol] 3.7 g/dL Normal 1.4 - 4.0 gm/dL [facility] Glucose [Mass/Vol] 113 mg/dL Normal 55 - 199 mg/dL [facility] Lipase [Catalytic activity/Vol] 28 U/L Normal 13 - 58 unit/L [facility] Potassium [Moles/Vol] 3.9 mmol/L Normal 3.5 - 5.3 mmol/L [facility] Protein [Mass/Vol] 8.2 g/dL High 6.0 - 7.8 gm/dL [facility] Sodium [Moles/Vol] 138 mmol/L Normal 135 - 145 mmol/L [facility] Urea nitrogen [Mass/Vol] 14 mg/dL Normal 5 - 21 mg/dL [facility] Urea nitrogen/Creatinine [Mass ratio] 16 mg/mg Normal 10 - 20 [facility] Consent for Treatmenton 07-15 Consent for Treatment [id number]:127 Normal [facility] HEMATOLOGYOrdered By: SYSTEM SYSTEM on 08-08-2022 Basophils/100 WBC (Bld) 0.1 % Normal 0.0 - 2.0 % [facility] Basophils/Leukocytes Auto (Bld) [Pure # fraction] 0.0 E9/L Normal 0.0 - 0.2 E9/L [facility] Eosinophils/100 WBC (Bld) 0.0 % Normal 0.0 - 8.0 % [facility] Eosinophils/Leukocytes Auto (Bld) [Pure # fraction] 0.0 E9/L Normal 0.0 - 0.5 E9/L [facility] Lymphocytes/100 WBC (Bld) 4.9 % Low 14.0 - 50.0 % [facility] Lymphocytes/Leukocytes Auto (Bld) [Pure # fraction] 0.5 E9/L Low 1.0 - 4.0 E9/L [facility] Monocytes/100 WBC (Bld) 2.5 % Low 4.0 - 14.0 % [facility] Monocytes/Leukocytes Auto (Bld) [Pure # fraction] 0.3 E9/L Normal 0.2 - 1.0 E9/L [facility] Neutrophils/100 WBC (Bld) 92.5 % High 36.0 - 75.0 % [facility] Neutrophils/Leukocytes Auto (Bld) [Pure # fraction] 9.7 E9/L High 2.0 - 7.5 E9/L [facility] HEMATOLOGYOrdered By: Jasper Jauregui on 08-08-2022 Erythrocyte distribution width (RBC) [Ratio] 13.3 % Normal 10.9 - 14.2 % [facility] Hematocrit (Bld) [Volume fraction] 40.0 % Normal 34.0 - 46.0 % [facility] Hemoglobin (Bld) [Mass/Vol] 13.7 g/dL Normal 12.0 - 16.0 gm/dL [facility] MCH (RBC) [Entitic mass] 30.2 pg Normal 27.0 - 34.0 pg [facility] MCHC (RBC) [Mass/Vol] 34.2 g/dL Normal 31.4 - 36.0 gm/dL [facility] MCV (RBC) [Entitic vol] 88.1 fL Normal 80.0 - 100.0 fL [facility] Platelet mean volume (Bld) [Entitic vol] 9.0 fL Normal 6.4 - 10.8 fL [facility] Platelets (Bld) [#/Vol] 220.0 E9/L Normal 150.0 - 500.0 E9/L [facility] RBC (Bld) [#/Vol] 4.5 E12/L Normal 4.3 - 5.9 E12/L [facility] WBC corrected for nucl RBC Auto (Bld) [#/Vol] 10.4 E9/L Normal 4.0 - 11.0 E9/L [facility] Hep Func Panelon 08-08-2022 Albumin [Mass/Vol] 4.5 g/dL Normal 3.3-5.0 [facility] Comment on above: Performed By: #### 2 158879, 3173220, 65829611, 4669426, 6057727, 4269063, 74093370 #### [facility] Laboratory [address] [place] [address] Albumin/Globulin (S) [Mass conc ratio] 1.2 Normal 1.1-2.2 [facility] Comment on above: Performed By: #### 2 645228, 5158397, 32528398, 9217488, 9099165, 9692186, 63589279 #### [facility] [address] [place] [address]45 ALP [Catalytic activity/Vol] 56 Int._Unit/L Normal 21-98 [facility] Comment on above: Performed By: #### 2 379692, 3757361, 72305676, 8975396, 9684385, 3341710, 10037202 #### [facility] [address] [place] [address] 37617 ALT No additional P-5'-P [Catalytic activity/Vol] 28 Int._Unit/L Normal 6-46 [facility] Comment on above: Performed By: #### 2 704002, 5923225, 75937456, 8695522, 0840044, 5282549, 04063256 #### [facility] [address] [place] [address] 24788 AST [Catalytic activity/Vol] 29 Int._Unit/L Normal 5-43 [facility] Comment on above: Performed By: #### 2 470930, 8721160, 81898774, 5181263, 9272145, 8977479, 10334264 #### [facility] [address] [place] [address]34 Bilirubin [Mass/Vol] 0.7 mg/dL Normal 0.0-1.1 [facility] Comment on above: Performed By: #### 2 541484, 9970697, 52329725, 0023471, 9812655, 2515829, 47051587 #### [facility] [address] [place] [address]78 Bilirubin.direct [Mass/Vol] 0.1 mg/dL Normal 0.1-0.4 [facility] Comment on above: Performed By: #### 2 311726, 5922696, 51543888, 0674723, 7102819, 5235170, 09316464 #### [facility] [address] [place] [address] Bilirubin.indirect [Mass or moles/Vol] 0.6 mg/dL Normal 0.1-0.9 [facility] Comment on above: Performed By: #### 2 669223, 1566501, 31864063, 9458928, 4719214, 5392012, 08848336 #### [facility] [address] [place] [address]6519 Globulin (S) [Mass/Vol] 3.7 g/dL Normal 1.4-4.0 [facility] Comment on above: Performed By: #### 2 473676, 2668576, 67474888, 7021134, 4726619, 1406217, 47676511 #### [facility] [address] [place] [address] 52694 Protein [Mass/Vol] 8.2 g/dL High 6.0-7.8 [facility] Comment on above: Performed By: #### 2 616123, 8393766, 52345208, 7257835, 0564950, 6412159, 70355930 #### [facility] [address] [place] [address] 87904 Lipase Levelon 08-08-2022 Lipase [Catalytic activity/Vol] 28 U/L Normal 13-58 [facility] Comment on above: Performed By: #### 2 713864, 7688218, 76051514, 2849568, 7527071, 2284618, 97249978 #### [facility] [address] [place] [address] RAD - Preliminary Cat Scan R eporton 08-08-2022 RAD - Preliminary Cat Scan Report [id number] Normal [facility] SEROLOGYOrdered By: Elmer For ster on 08-08-2022 Beta hCG Ql Negative (08/08/22 7:54 PM) Normal [facility] Man Sero UA With Cult Reflexon 2021 Bacteria LM Ql (Urine sed) TRACE Normal Trace [facility] Comment on above: Performed By: #### 1 8432558 #### [facility] [address] [place] [address] Bilirubin Ql (U) Negative Normal Negative [facility] Comment on above: Performed By: #### 1 1899012 #### [facility] [address] [place] [address] Clarity (U) CLEAR Normal Clear [facility] Comment on above: Performed By: #### 1 2111656 #### [facility] [address] [place] [address] Color (U) YELLOW Normal Yellow [facility] Comment on above: Performed By: #### 1 1941553 #### [facility] [address] [place] [address] Epithelial cells.squamous LM.HPF (Urine sed) [#/Area] 3-4 Normal 0-2 [facility] Comment on above: Performed By: #### 1 4780096 #### [facility] [address] [place] [address] Glucose Test strip (U) [Mass/Vol] Negative Normal Negative [facility] Comment on above: Performed By: #### 1 8096147 #### [facility] [address] [place] [address] Hemoglobin Ql (U) 1+ Abnormal Negative [facility] Comment on above: Performed By: #### 1 [id number] #### [facility] Laboratory [address] [place] [address] Ketones (U) [Mass/Vol] 2+ Abnormal Negative [facility] Comment on above: Performed By: #### 1 [id number] #### [facility] [address] [place] [address] Loco.plasma/Loco .RBC (Bld) [Mass ratio] 4-20 Normal 0-3 [facility] Comment on above: Performed By: #### 1 [id number] #### [facility] [address] [place] [address] Mucus Ql (Urine sed) 1+ Normal [facility] Comment on above: Performed By: #### 1 [id number] #### [facility] [address] [place] [address] Nitrite Ql (U) Negative Normal Negative [facility] Comment on above: Performed By: #### 1 [id number] #### [facility] [address] [place] [address] pH (U) 6.5 [pH] Invalid Interpretation Code 5.0-9.0 [facility] Comment on above: Performed By: #### 1 [id number] #### [facility] [address] [place] [address] Protein (U) [Mass/Vol] 1+ Abnormal Negative [facility] Comment on above: Performed By: #### 1 [id number] #### [facility] [address] [place] [address] Specific gravity (U) [Rel density] >=1.030 Invalid Interpretation Code 1.005-1.030 [facility] Comment on above: Performed By: #### 1 [id number] #### [facility] [address] [place] [address] Type of Urine collection method Clean Catch Normal [facility] Comment on above: Performed By: #### 1 [id number] #### [facility] [address] [place] [address] Urobilinogen Qn (U) 0.2 {Lian'U}/dL Normal 0.0-1.0 [facility] Comment on above: Performed By: #### 1 [id number] #### [facility] [address] [place] [address] WBC Auto Ql (U) Negative Normal Negative [facility] Comment on above: Performed By: #### 1 [id number] #### [facility] [address] [place] [address] WBC LM.HPF (Urine sed) [#/Area] 0-5 Normal 0-5 [facility] Comment on above: Performed By: #### 1 [id number] #### [facility] [address] [place] [address] URINALYSISOrdered By: Elmer johnson on 08-08-2022 Bacteria LM Ql (Urine sed) Trace /HPF Normal Trace/HPF [facility] UA Auto SS Bilirubin Ql (U) Negative (08/08/22 8:37 PM) Normal Negative [facility] UA Auto SS Clarity (U) Clear (08/08/22 8:37 PM) Normal Clear [facility] UA Auto SS Color (U) Yellow (08/08/22 8:37 PM) Normal Yellow [facility] UA Auto SS Epithelial cells.squamous LM.HPF (Urine sed) [#/Area] 3-4 /HPF Normal 0-2/HPF [facility] UA Aut o SS Glucose Test strip (U) [Mass/Vol] Negative (08/08/22 8:37 PM) Normal Negative [facility] UA Auto SS Hemoglobin Ql (U) 1+ *ABN* (08/08/22 8:37 PM) Invalid Interpretation Code Negative [facility] UA Auto SS Ketones (U) [Mass/Vol] 2+ *ABN* (08/08/22 8:37 PM) Invalid Interpretation Code Negative [facility] UA Auto SS Loco.plasma/Loco .RBC (Bld) [Mass ratio] 4-20 /HPF Normal 0-3/HPF [facility] UA Auto SS Mucus Ql (Urine sed) 1+ (08/08/22 8:37 PM) Normal [facility] UA Auto SS Nitrite Ql (U) Negative (08/08/22 8:37 PM) Normal Negative [facility] UA Auto SS pH (U) 6.5 *NA* (08/08/22 8:37 PM) Invalid Interpretation Code 5.0 - 9.0 [facility] UA Auto SS Protein (U) [Mass/Vol] 1+ *ABN* (08/08/22 8:37 PM) Invalid Interpretation Code Negative [facility] UA Auto SS Specific gravity (U) [Rel density] >=1.030 *NA* (08/08/22 8:37 PM) Invalid Interpretation Code 1.005 - 1.030 [facility] UA Auto SS UA Spec Desc Clean Catch (08/08/22 8:37 PM) Normal [facility] UA Auto SS Urobilinogen Qn (U) 0.7510565 {Lian'U}/dL Normal 0.0 - 1.0 EU/dL [facility] UA Auto SS WBC Auto Ql (U) Negative (08/08/22 8:37 PM) Normal Negative [facility] UA Auto SS WBC LM.HPF (Urine sed) [#/Area] 0-5 /HPF Normal 0-5/HPF [facility] UA Auto SS eGFRon 08-08-2022 GFR/1.73 sq M.predicted among blacks MDRD (S/P/Bld) [Vol rate/Area] mL/min/{1.73_m2} Normal >=59 [facility] Comment on above: Order Comment: Order added by Discern Expert. Result Comment: eGFR is race adjusted. AA=. Performed By: #### 2 061620, [id number], [id number], 3309858, 9788011, 6580675, [id number] ####[facility] [address] [place] [address] GFR/1.73 sq M.predicted among non-blacks MDRD (S/P/Bld) [Vol rate/Area] mL/min/{1.73_m2} Normal >=59 [facility] Comment on above: Order Comment: Order added by Discern Expert. Result Comment: Pool Lifeguard erin kidney disease could be indicated at eGFR's of less than 60 mL/min/1.73m2. Kidney failure is indicated at less than 15 mL/min/1.73m2. Performed By: #### 2 820056, 1660091, 63457371, 8820665, 3853163, 2771164, [id number] ####[facility] [address] [place] [address] Coding Summary.on 07-31-2022 Coding Summary. CD:[id number] G h0bWw+PGhlYWQ+AK3HZGH jL65dhOHffL7VH1nOPC7G PQMYUHLTMG7NZU9yhFL5G ZhyC6PltfBc MylhaIFzLA63ZWl3ULR5w WlvORtlqX7eqXWpO4s6Ya JtYV25tV49MRxsQIAqBxQ 3LjZpbjsgbWFy S5epBtXhuJUkMwn+PHRhY mxlIHdpZHRoPScxMDAlJy NvdRlrSI7lGh3cJEQhPJA vbGxhcHNlOiBj e8xoCDWdGIqoXA5qwTusD 3RtzDD7RAVpt9y0Vx69rG I+MZKnGEI8zEmaELgvu88 0QlXaq3jzNYK9 yMYsOEqvIMM0Z51tr3B3H ZNgRFCmIAR4dSC6lA6cqH qcdxwcT9OeoLJuYiK8LYN 6zWMzaT3akQty myaltH6pSgj+I43LCP0WI LFJQS6NZag6C3HbCtgijF I+KE59TXHyZD17dVKsuWJ en8bhlWl9SiEv BUGvMXG4hOqdYZdfd7FiY QFbH29lyWVxy0Y3TZPvtO pyqUMxTqIwjDY3qP6jQTe hkwsln1ltcnkk Hhnio4csvx09cN27V92fO ItnBBLeRDC2EIFeYVYroY ovbq5muH1cWu9+IOkek5d rk2idsMc9BwYz QGGqstLueLzoYUL7f0FwP i05S6PjiCkln3WgHzh5ci 32tNFha1H4uVE8DUhlXEW qoA6oBMghZzU4 QDKyWqHxkP79nWHuFDwmE m7beYhroFatJD4kGCJkjf zkJEVseG9aOXVcqNHkhHj tCS2yFMGfyebd m015LrPqODG2TXQnrOZgA 9UuvA5kSbYjURQxAZJtB9 HskAFyLEjlS392VQqxIfX 5DSLujzUoM1Ir YSAczZwzQsQ8j5C6Px8Cv 8PdysulXPO0RVjaGZAnCv Y1DbOmPcX0V1UmGpr4BKN wiXroJO0zD8Mm GKNaciuknnldbRZ9HUPjY IFtwR40hGIuBIjfPw0vm8 C0c941TEFlHSTcyP86Ye3 udDogMTBwdCBU xX6gjaqgz7henfbzEhVaW NWwWDc5KMu8NFFmoGcfPe YzEUC2QyI1HZN0zICdwJ0 tjZqnisipiI1u Oyc+H99baJ0fTDH0GCK8y trkVDFzevRuTM56CH28A1 RyPjwvdGFibGU+PGRpdiB vnMafAK0lIxWb x4atl5GbWJpdI8ZtRDYdR TflFhl5XLFuKRE2uTQ6oV 8rLZZvEMdzw4P4xHA6Z7F sqrTgqe2xr1fp JBWjVOsbA56jwEPet2X6M ROplBG2QSJpgLukZyEebL 93Oyc+PHVdqBtzb7KvQeb ra8zye4fzgHu7 WwItLKCbchAeiOjtPHI8h 3TsVu45E79hNLfnJTRdCG IoXCAfJWUubUuzmo1puR5 wIi8+PGNvbCB3 pND4aX7fSBYeZnX3AOsyX 963HbHerIBoFuunw2oub6 wcbLy3EjEaZWKaffMizOa cJLB4i0YoXy44 X44xWEifQUOdFXSoAHRaT UPdcEicdo5vtQ3wFy0+PC 2uy8bsaw19fB91bQD+PHR fFCZ5pZalRQoh MHCpgG5yYSbzLgM1CBWgX bRlmR83iTAaWKyrSy3peS wuqIhyZC5bKIWftwgwq55 8AsCid7mmQMFl tHGzBLmwEFS8U21qc1J4L CFjRNAcKLN1oJQ2mJ2imA lnbjogbGVmdDsgdmVydGl nQJfyKRevW938 IHRvcDsnPlBhdGllbnQgT zBhEQq8Y5QjEvg1FCVuzT eiYY5bmHNeXVeuVh3wbTm wlJhlYR8aEAPm nbpsr059VkHcp6ufXKKut TQpJNnoDHH8Q71vm0S5XV CiJKHuBDK7kZN0iD1ahJf nbjogbGVmdDsg zvQmdSziMKzlDTvgJ765H HRvcDsnPkJpcnRoIERhdG K5IO89ZA37jDGbq0Z3tHI 3T3QdACKbqnee qmbvoDK1UIGjCBAdzH77E k4plEprLf9wTXYsAGD5HR JpxROmG3QiwF2kDbOuVSA eKVGtG0CpsNOl WUqrY310TAkkHhS8SCAre sHbW4LfWRZoeUgdGyM3t1 T6Pz5ZC1O1XC97KW57nIC zc0X2zNF4K5Hd PBAowbylyrtkaQP0COFhM QXrkZ66Lg7xzAvzWe3cDN YqZNV8HDFbpVHfK6XyyU2 yOiAjMDAwMDAw L7RyxGBsPXyaL547OMjtN vP1LCClgcJbE7WyGWTlkZ qsZqG2y6R1Jn4SEYh5XA8 0LT88eDMvx0A4 jWJ4B0QcYVZmdtntcciwr DO7ZAFlZIKcgJ79Ty2mxI sxDi4gTVZfTMO1XYYwaXK jH4EtoU9mWzGu LHLzNHGfL8LzvUVbMKfkE 741DOwvTbK1YZXhswGfW5 WlOFFslCwdCeI2h9M8Mh7 TIVSgSN64MFP9 bLO6ZR56FH17A7DmKlxyn GFibGU+PHRhYmxlIHdpZH RoPScxMDAlJyBzdHlsZT0 jPt8wFDPbNGBh vKgskFXvRcYys0uyDAJzT WxnRP0oeUwgH8JcaOG0CF Meh3f3Wq36H38uW6DakPH +HVQbsGT6vYS3 jL9aAyDsToU6FCzyC101E hJaeCNtXjfsp9bqt9dtmR i9HxG7OODksgFvpEpqLPQ 6d7JxCe65A88e IHdpZHRoPSIxNSUiIHZhb Kjhle2dgR5vKe9+PGNvbC Y8pJM5lY8wWcTgEmU3IRt lK763QvYttCOp Lxrjb8dtl7puyTq7HpVrB QIuayHyrNqhICP5m0TaDi 32P1ZbcZolf9GmJbf2tb0 4vAEng9J3mBT3 L3BnNTKjcwweoFYzeDdcX A2gBSTceyshYMPbsM8aXX CqK5f5UaLySlJ0PFtuG2I jyzB4NYGimZWk DRjyCOA9F99ut2L0RPUmN HCvFTT5qIF0sO9dxFldqw ogbGVmdDsgdmVydGljYWw jPXcnK901YWGa xLucGHGgjW5pSUNlkGTfh QusRY2dYDEpyhitHuuRLh SMPenUX79dCYCMFIvUIqD NMX58YC66rELb x4C0gEG5T0XnHPMxyvmam njzqIA3HHIpJCSzoV06uZ YyOLlrIr8qo1L4r777UVC qUHJlqH08Vn7a vMxqTGCduDRQmQ8kvtydx 4bjwmroNfLeQNBnOXt2DP g3OIKbsVcmLkIySQN8TkL 8HMG5mDNhjM0l aMnjhqdwdN1dSnj+MDMvM DMvMjAwMDwvdGQ+PHRkIH D6nIywNMwcCYUhuR1oNFI tY2q6ZpAdQuT2 AFraF2WtOHSzbuduGo08e B4kBwNnOpL1BVwqC7Pzsy Y4DRMczAAuRHftKMN9G26 vm0O4WLIjGJLc QUH2pNB6hT5tgAmczykvr GVmdDsgdmVydGljYWwtYW efO136SUDanCunLoFuDQj vXHJpFG24BQ12 rKCjn9M7uGL8U4YgLIDom hxrcawskFX1EOByTOKwjV 19eKJnNJzwEu6ue4S2c80 9ELRmCGXjvF20 Fa3icKviRTGsvDCQmT6df wowz3pzcignUeIkUKMzSN f2SFj8HIWuhBviOuKwSTI 3ElY3UFZ3dNPo oO1ikOmtfrpgdH2lClt+R dXnQKerMT82XM74rHUuo9 C4mMF3I9VtVRGdbfcvcvz cnCH0VDGqEEIp uV10hHIdPVroDg1km2Z5c 030ZEZrDXFxmA81Zd7hxH bwKVCifKAAmN2jjtxeu5m vcjogIzAwMDAw CSx5LFa3AWCzcVqgRxMlD RD7JcA7FVZ7hUKhvA5bvS shkhgvgK7eBrs+PT2qfqt qxwQ7WT55QE56 C0MwOtqmdBRiiNQ+PHRhY mxlIHdpZHRoPScxMDAlJy YpuWypSY5wZg7cUQKuJZN vbGxhcHNlOiBj m4qfGBQwSZccSC4wjIkkH 1HjdUP2HIHfj9v5Ox06L2 5eO2KzvAY+FMHhaUB1nRB 7nP0bAwLfNeV9 WUjkF915GuEygSBhJuaje 7qwu2vdtLe9PsDoSWOxgo TzdFsoAZL7c5VvQv73L67 sIHdpZHRoPSIy YKWgJGCulIasts3wxE0mT i8+PNPuySK9mMT1pS8rPg JmZnG3TVhcF515XwMnlDO cQacwN33vU8Zt dXA+YUXoFtg4IRBvpEmjL K0ykPNuAXfhYi1iOSP0Fm RzTzXnUNdsK0XoGTAkwqk kvvbkuFL9RONu ZNUddT89Vb6suTfiEo5fR KJgNEQ3KXKfnMSlA1HhyC 5rNwLlLBNrFGSgX1IfyMB jRSfrD411UMhj WqI9USIvvmJpS6DsMWDgi OfeFrD5l2L0Sg9GmTywtV KpHW5yXjRiDXb7S5FbLdb 7PUOvpHbwOG3z jEJiCIhdFe6ieQazyRxhT V7qXDRpsuvcp061ZyCvt4 pvSXKeoUBdUPmyBMX6L53 ev8C2FXTsRVBl APS0yXC0rP4byYtlmfmbq GVmdDsgdmVydGljYWwtYW ryT998RFAmpQsdPjFBZmn 5P0IqRwx2LAWp hUuvDV7vnHBjEEmzIx5ph CrkuLidLZ8jENVeznftd4 06NyXln5epMSBoeYRdXKl yTYJ1Y29yy9K1 ESXlVCNlKJG4nIQ0hJ2ea GlnbjogbGVmdDsgdmVydG oiTHebQLucI207UURjnIs hCy2ZKxd7K9Es Xff7LPEtyIvnNX4drHStL OygNd5lnXcgxYcsJO7rII Lppxbtg178IoYxv0azUOE wcHQgVGltZXM7 C32hy6C4XZTdERFaRVX0t TI9rP7whPnxbujfmVHblV gowvRxtVguPOhqGScuT51 6IHRvcDsnPlBh eWVyOjwvdGQ+TW60nb21M 7ZiZnpcGov0KPRzCXV0iS C5gV3aHWBkMRsil0W2uFZ 5U3SpddKouu8p b2xs (more content not included)... Normal [facility] ED Note-Physicianon 07-29-20 ED Note-Physician Basic Information Time Seen: Romana AdkinsAnna 07/28/2022 10:52 Chief Complaint pt c/o sharp abdominal pains and chest tightness since last night. History of Present Illness The patient is 21-year-old female who presented to the emergency room with chest tightness and left lower quadrant abdominal pain. The patient states the symptoms have been since yesterday. Her pain on the left side feels like sharp. Last for couple of minutes and it goes away and it comes back. The patient states she has tightness in her chest and points to the epigastric area. The patient states when these episodes come they do make her feel nauseated, she shakes and then the symptoms go away. The patient denies any shortness of breath. She denies any cough, denies any fever, denies any chills. She denies any urinary symptoms. Her last menstrual period was last week. She states she has some vaginal discharge which is normal for her. The patient states she has had the symptoms, however she has not gone to the emergency room. The patient denies any other associated symptoms. Review of Systems Additional ROS info: Except as noted in the above Review of Systems and in the History of Present Illness all other systems have been reviewed and are negative or noncontributory. Physical Exam Vitals & Measurements T: 36.7 ?C(Oral) HR: 62(Peripheral) RR: 17 BP: 109/80 SpO2: 100% HT: 155 cm WT: 39.3 kg BMI: 16.36 General: alert, no acute distress Skin: warm, dry Head: no trauma, normocephalic Neck: Trachea midline Eye: normal conjunctiva, sclera clear Cardiovascular: regular rate and rhythm Respiratory: Lungs CTA, respirations non labored, breath sounds equal Gastrointestinal: soft, non distended, mild tenderness in the epigastric and left lower quadrant, no guarding Extremities: no deformity, no trauma Neurological: Alert and oriented, speech normal, no focal neuro deficits Psychiatric: cooperative, affect appropriate for age, Procedure Heart Score for Major Cardiac Event History: Example factors for history - pattern of chest pain, onset, duration, relation with exercise, stress or cold, localization, concominant symptoms. reaction to sublingual nitrates, [] Highly suspicious +2 [] Moderately suspicious +1 [X] Slightly suspicious 0 EKG: [] Significant ST-Depression +2 [] Non specific repolarization disturbance +1 [X] Normal 0 Age: [] >= 65 +2 [] 45-65 + 1 [X] <45 0 Risk Factors: (HLD, HTN, DM, Cigarette Smoking, Pos Family Hx, Obesity) [] >3 risk factors or hx of atheroslerotic disease + 2 [X] 1-2 risk factors + 1 [] No risk factors known 0 Troponin: [] >= 3X normal + 2 [] 1-3X normal + 1 [X] <= Normal 0 [X] 0-3 Points 0.9 - 1.7% risk of major adverse cardiac event in 6 weeks [] 4-6 Points 12-16.6% risk of major adverse cardiac event in 6 weeks [] 7-10 Points 50-65% risk of major adverse cardiac event in 6 weeks [] 0-3 Points with 2 sets of negative cardiac markers <1% risk of major adverse cardiac event in 30 days. Medical Decision Making The patient presented with chest pain and abdominal pain. Her chest pain is epigastric substernal. Less likely of cardiac origin. Her heart score is 1. The patient is only a smoker. No other risk factors. The blood work reviewed. The EKG is normal chest x-ray no acute cardiopulmonary disease. Her pain improved. Will discharge patient home with prescription for pantoprazole and Bentyl. She is instructed to follow-up with primary care and return to the emergency room if her symptoms recur or any new symptoms. Assessment/Plan 1. Chest pain (R07.9: Chest pain, unspecified) 2. Abdominal pain (R10.9: Unspecified abdominal pain) Orders: dicyclomine, 20 mg = 2 cap(s), Oral, QID, # 20 cap(s), Refills(s) 0 pantoprazole, 40 mg = 1 tab(s), Oral, Daily, # 20 tab(s), Refills(s) 0 Automated Diff Basic Metabolic Panel CBC w/ Auto Diff ECG 12 Lead Adult ED Cardiac Monitoring eGFR Extra SST Tube Hepatic Function Panel Lipase Level Oxygen Saturation Oxygen Therapy PT & PTT Saline Lock Insert Troponin 0 Hr. Troponin 3 Hr. Troponin 6 Hr. Troponin 9 Hr. U Beta Hcg Qual UA With Cult Reflex XR Chest Single View Disposition Plan Patient Discharge Condition Stable, improved Discharge Disposition Discharged home Discharge Prescription List Prescriptions Bentyl 10 mg Cap, 20 mg= 2 cap(s), Oral, QID pantoprazole 40 mg Oral EC Tab, 40 mg= 1 tab(s), Oral, Daily Follow-up With When Contact Information Pascale Rodríguez In 3 days 07/31/[address] [place] [phone] Business (1) Additional Instructions: Return to the emergency room if your symptoms recur or any new symptom Patient Education Nonspecific Chest Pain, Adult Abdominal Pain, Tony (more content not included)... Normal [facility] Comment on above: Result Comment: Elec tronically Signed By: Romana Adkins, Anna Staley\.br\Date and Time Signed: 07/29/22 08:13 EDT Auto Diffon 07-28-2022 Basophils/100 WBC (Bld) 0.8 % Normal 0.0-2.0 [facility] Comment on above: Order Comment: Order Added by Discern Expert. Performed By: #### 2 540925, 9396822, 6368894, 65034413, 49351833, 7682190, 86483078, 2377847 ####[facility] [address] [id number] Basophils/Leukocytes Auto (Bld) [Pure # fraction] 0.0 E9/L Normal 0.0-0.2 [facility] Comment on above: Order Comment: Order Added by Discern Expert. Performed By: #### 2 559564, 7961951, 0419020, 99176359, 81391286, 0713705, 54726897, 9809606 ####[facility] [address] [place] [address] Eosinophils/100 WBC (Bld) 2.7 % Normal 0.0-8.0 [facility] Comment on above: Order Comment: Order Added by Discern Expert. Performed By: #### 2 258322, 9036628, 9304847, 48789081, 47583665, 0304806, 34044218, 7412603 ####[facility] [address] [place] [address] Eosinophils/Leukocytes Auto (Bld) [Pure # fraction] 0.1 E9/L Normal 0.0-0.5 [facility] Comment on above: Order Comment: Order Added by Discern Expert. Performed By: #### 2 809201, 1911003, 0266583, 91263079, 91553987, 7137025, 23124643, 9258121 ####[facility] [address] [place] [address] Lymphocytes/100 WBC (Bld) 37.3 % Normal 14.0-50.0 [facility] Comment on above: Order Comment: Order Added by Discern Expert. Performed By: #### 2 175468, 3319548, 7744770, 24910731, 98359479, 6134697, 26552238, 7964999 ####[facility] [address] [place] [address] Lymphocytes/Leukocytes Auto (Bld) [Pure # fraction] 1.6 E9/L Normal 1.0-4.0 [facility] Comment on above: Order Comment: Order Added by Jamir Expert. Performed By: #### 2 923869, 5878377, 5474950, 63074293, 99337418, 1280754, 45675545, 5426449 ####[address] [place] [address] Monocytes/100 WBC (Bld) 14.0 % Normal 4.0-14.0 [facility] Comment on above: Order Comment: Order Added by Discern Expert. Performed By: #### 2 673227, 6175966, 6465342, 20118510, 49754329, 1834622, 54287676, 6562751 ####[address] [place] [address] Monocytes/Leukocytes Auto (Bld) [Pure # fraction] 0.6 E9/L Normal 0.2-1.0 [facility] Comment on above: Order Comment: Order Added by Discern Expert. Performed By: #### 2 439790, 9909444, 3817938, 38843845, 80733699, 4313180, 46536590, 8650199 ####[address] [address] Neutrophils/100 WBC (Bld) 45.2 % Normal 36.0-75.0 [facility] Comment on above: Order Comment: Order Added by Discern Expert. Performed By: #### 2 613013, 2542512, 9582425, 81472423, 71886855, 0824441, 91749881, 4384799 ####[address] [place] [address] Neutrophils/Leukocytes Auto (Bld) [Pure # fraction] 2.0 E9/L Normal 2.0-7.5 [facility] Comment on above: Order Comment: Order Added by Discern Expert. Performed By: #### 2 406114, 1593517, 6490065, 85379979, 33010789, 8705387, 31323431, 0793527 ####[address] [place] [address] BMPon 07-28-2022 Creatinine [Mass/Vol] 0.9 mg/dL Normal 0.5-1.[address] [facility] Comment on above: Performed By: #### 2 082023, 4954189, 4733884, 56408890, 78125779, 7916495, 10193034, 4856770 ####[facility] [address] [place] [address] Urea nitrogen [Mass/Vol] 11 mg/dL Normal 5-21 [facility] Comment on above: Performed By: #### 2 299441, 4130784, 9336758, 81583069, 25298765, 0712197, 04929743, 5170945 ####[facility] [address] [place] [address] Urea nitrogen/Creatinine [Mass ratio] 12 No Units Normal 10-20 [facility] Comment on above: Performed By: #### 2 040990, 7186978, 4759162, 65491395, 75904400, 2801115, 63851634, 3398648 ####[facility] [address] [place] [address] Anion gap [Moles/Vol] 11 mmol/L Normal 6-[address] [facility] Comment on above: Performed By: #### 2 804953, 2251540, 9847637, 77584049, 39276427, 1220244, 20777762, 1036829 ####[facility] [address] [place] [address] Calcium [Mass/Vol] 9.5 mg/dL Normal 8.9-11.1 [facility] Comment on above: Performed By: #### 2 276472, 5358329, 0422741, 42389352, 71166525, 6741861, 17463940, 1638094 ####[facility] [address] [place] [address] Chloride [Moles/Vol] 105 mmol/L Normal 101-111 [facility] Comment on above: Performed By: #### 2 075398, 3441995, 6836701, 49652178, 29651820, 1542123, 31682732, 8390752 ####[facility] [address] [place] [address] CO2 [Moles/Vol] 24 mmol/L Normal 21-31 [facility] Comment on above: Performed By: #### 2 067560, 0237600, 2290801, 97506724, 93777949, 8615072, 86847660, 9813479 ####[facility] [address] [place] [address] Glucose [Mass/Vol] 90 mg/dL Normal 55-199 [facility] Comment on above: Result Comment: If t his glucose result represents a fasting glucose, interpretation should refer to the following reference range: 55-99 mg/dL Performed By: #### 2 197515, 7837270, 1844538, 23564443, 32917628, 7401682, 85694690, 8446046 ####[facility] [address] [place] [address] Potassium [Moles/Vol] 3.9 mmol/L Normal 3.5-5.[address] [facility] Comment on above: Performed By: #### 2 052868, 1964403, 6196199, 43126255, 87635929, 7086395, 05969611, 8698073 ####[facility] [address] [place] [address] Sodium [Moles/Vol] 136 mmol/L Normal 135-145 [facility] Comment on above: Performed By: #### 2 440975, 0894120, 0681423, 44816621, 89109462, 1414193, 79657264, 1148308 ####[facility] [address] [place] [address] CBC w/ Auto Diffon Erythrocyte distribution width (RBC) [Ratio] 13.1 % Normal 10.9-14.2 [facility] Comment on above: Performed By: #### 2 641374, 3302203, 6322791, 52672348, 86852565, 4292729, 98183232, 0981710 ####[facility] [address] [place] [address] Hematocrit (Bld) [Volume fraction] 38.9 % Normal 34.0-46.0 [facility] Comment on above: Performed By: #### 2 213109, 4272870, 7788076, 61332186, 94728309, 6815289, 92101573, 6372727 ####[facility] [address] [place] [address] Hemoglobin (Bld) [Mass/Vol] 13.3 g/dL Normal 12.0-16.0 [facility] Comment on above: Performed By: #### 2 324806, 1735009, 0996383, 57120005, 91277101, 0007831, 11688956, 4966550 ####[address] [place] [address] MCH (RBC) [Entitic mass] 30.6 pg Normal 27.0-34.0 [facility] Comment on above: Performed By: #### 2 622340, 3099128, 8836482, 68470469, 93909409, 2822967, 92996377, 0005319 ####[facility] [address] [place] [address] MCHC (RBC) [Mass/Vol] 34.3 g/dL Normal 31.4-36.[address] [facility] Comment on above: Performed By: #### 2 027862, 6574850, 4530867, 41529071, 19396074, 8072301, 56129278, 7966977 ####[facility] [address] [place] [address] MCV (RBC) [Entitic vol] 89.3 fL Normal 80.0-100.0 [facility] Comment on above: Performed By: #### 2 466401, 6818804, 6652221, 67684419, 98560384, 7814778, 66997798, 0100795 ####[facility] [address] [place] [address] Platelet mean volume (Bld) [Entitic vol] 9.1 fL Normal 6.4-10.8 [facility] Comment on above: Performed By: #### 2 166134, 8035569, 8960527, 80791068, 28687037, 5929847, 87378791, 0805705 ####[facility] [address] [place] [address] Platelets (Bld) [#/Vol] 225.0 E9/L Normal 150.0-500.0 [facility] Comment on above: Performed By: #### 2 290640, 8355845, 3424048, 54469837, 78046522, 3240559, 24644915, 9078430 ####[facility] [address] [place] [address] RBC (Bld) [#/Vol] 4.4 E12/L Normal 4.3-5.9 [facility] Comment on above: Performed By: #### 2 536967, 4436932, 9041827, 66241748, 87298420, 6471255, 65276536, 3169132 ####[facility] [address] [place] [address] WBC corrected for nucl RBC Auto (Bld) [#/Vol] 4.3 E9/L Normal 4.0-11.0 [facility] Comment on above: Performed By: #### 2 765608, 2096395, 8084425, 99517044, 58677454, 4223254, 23199951, 8330666 ####[facility] [address] [place], [place] [id number] CHEMISTRYOrdered By: SYSTEM SYSTEM on 07-28-2022 Albumin [Mass/Vol] 4.3 g/dL Normal 3.3 - 5.0 gm/dL [facility] Albumin/Globulin [Mass ratio] 1.2 {ratio} Normal 1.1 - 2.2 [facility] ALP [Catalytic activity/Vol] 50 [iU]/d Normal 21 - 98 Int._Unit/L [facility] ALT No additional P-5'-P [Catalytic activity/Vol] 18 [iU]/d Normal 6 - 46 Int._Unit/L [facility] Anion gap [Moles/Vol] 11 mmol/L Normal 6 - 16 mEq/L [facility] AST [Catalytic activity/Vol] 23 [iU]/d Normal 5 - 43 Int._Unit/L [facility] Bilirubin [Mass/Vol] mg/dL Normal 0.0 - 1 .1 mg/dL [facility] Bilirubin.direct [Mass/Vol] mg/dL Normal 0.1 - 0.4 mg/dL [facility] Bilirubin.indirect [Mass or moles/Vol] Unable to Calculate mg/dL Invalid Interpretation Code 0.1 - 0.9 mg/dL [facility] Calcium [Mass/Vol] 9.5 mg/dL Normal 8.9 - 11. 1 mg/dL [facility] Chloride [Moles/Vol] 105 mmol/L Normal 101 - 1 11 mmol/L [facility] CO2 [Moles/Vol] 24 mmol/L Normal 21 - 31 mmol/L [facility] Creatinine [Mass/Vol] 0.9 mg/dL Normal 0.5 - 1.3 mg/dL [facility] GFR/1.73 sq M.predicted among blacks MDRD (S/P/Bld) [Vol rate/Area] mL/min/1.73 m2 Normal >=59mL/min/1 .73 m2 [facility] Chem S GFR/1.73 sq M.predicted among non-blacks MDRD (S/P/Bld) [Vol rate/Area] mL/min/1.73 m2 Normal >=59mL/min/1 .73 m2 [facility] Chem S Globulin (S) [Mass/Vol] 3.7 g/dL Normal 1.4 - 4.0 gm/dL [facility] Glucose [Mass/Vol] 90 mg/dL Normal 55 - 199 mg/dL [facility] Lipase [Catalytic activity/Vol] 40 U/L Normal 13 - 58 unit/L [facility] Potassium [Moles/Vol] 3.9 mmol/L Normal 3.5 - 5.3 mmol/L [facility] Protein [Mass/Vol] 8.0 g/dL High 6.0 - 7.8 gm/dL [facility] Sodium [Moles/Vol] 136 mmol/L Normal 135 - 145 mmol/L [facility] Remisol Troponin I.cardiac [Mass/Vol] pg/mL Low 10.10 - 27.10 pg/mL [facility] Remisol Urea nitrogen [Mass/Vol] 11 mg/dL Normal 5 - 21 mg/dL [facility] Remisol Urea nitrogen/Creatinine [Mass ratio] 12 mg/mg Normal 10 - 20 [facility] Remisol COAGULATIONOrdered By: Melanie Orozco on 07-28-2022 aPTT Coag (PPP) [Time] 34.8 s Normal 25.1 - 36.5 second(s) [facility] Auto Coag INR Coag (PPP) [Relative time] 1.0 {INR} Invalid Interpretation Code [facility] Auto Coag PT Coag (PPP) [Time] 11.5 s Normal 9.4 - 1 2.5 second(s) [facility] Auto Coag Consent for Treatmenton 07-14 Consent for Treatment [id number]#1 .00CD:127 Normal [facility] Discharge Instructionson Discharge Instructions [id number]# 1.00CD:127 Normal [facility] ED Clinical Summaryon 2021 ED Clinical Summary [place] [id number] ED Clinical Summary Person Information Name: TRINA NELSON [facility] Age: 21 Years : 2000 Sex: Female Language: Hungarian PCP: Pascale Rodríguez MD Marital Status: Single Visit Id: Visit Reason: Chest pressure - Adult; Abdominal pain; CHEST TIGHTNESS-ABD PAIN Speciality: Acuity: 3 Enc Type: Emergency Med Service: Emergency Arrival: 07/28/2022 10:39:33 Discharge: 07/28/2022 14:06:08 LOS: 000 03:27 Checkin: 07/28/2022 10:39:33 Checkout: 07/28/2022 14:06:08 Dispo Type: Home (Routine DC) EVENTS: Event Name Event Status Request Date/Time Start Date/Time Complete Date/Time Arrive Complete 07/28/2022 10:39:33 07/28/2022 10:39:33 07/28/2022 10:39:33 Document Home Meds Request 07/28/2022 10:39:33 Triage Complete 07/28/2022 10:39:33 07/28/2022 10:53:23 07/28/2022 10:53:23 Bed Assign Complete 07/28/2022 10:46:00 07/28/2022 10:46:00 07/28/2022 10:46:00 Dr Exam Complete 07/28/2022 10:46:00 07/28/2022 10:52:01 07/28/2022 10:52:01 RN Exam Complete 07/28/2022 10:46:00 07/28/2022 10:55:04 07/28/2022 10:55:04 Registration Complete 07/28/2022 10:52:01 07/28/2022 11:03:49 07/28/2022 11:03:49 Reg Complete Request 07/28/2022 11:03:49 Reg Bed Request Complete 07/28/2022 11:03:49 07/28/2022 11:03:49 07/28/2022 11:03:49 EKG Complete 07/28/2022 11:07:14 07/28/2022 11:21:26 Pending Labs Request 07/28/2022 11:07:14 Lab Complete 07/28/2022 11:07:14 07/28/2022 12:24:31 Patient Care Request 07/28/2022 11:07:14 RT Request 07/28/2022 11:07:14 X-Ray Complete 07/28/2022 11:07:14 07/28/2022 11:37:46 07/28/2022 11:51:17 Urine Collect Complete 07/28/2022 11:07:14 07/28/2022 12:24:31 Pending Labs Complete 07/28/2022 11:26:08 07/28/2022 11:26:08 07/28/2022 11:54:51 Lab Complete 07/28/2022 11:26:08 07/28/2022 11:26:08 07/28/2022 11:54:51 Pending Labs Complete 07/28/2022 11:31:06 07/28/2022 11:31:06 07/28/2022 11:31:15 Lab Complete 07/28/2022 11:31:06 07/28/2022 11:31:06 07/28/2022 11:31:15 Wet Read Request 07/28/2022 11:51:17 Pending Labs Complete 07/28/2022 12:15:01 07/28/2022 12:15:01 07/28/2022 12:15:01 Discharge Complete 07/28/2022 13:53:41 07/28/2022 14:06:13 07/28/2022 14:06:13 Transfer Complete 07/28/2022 14:06:13 07/28/2022 14:06:13 07/28/2022 14:06:13 ADDRESS: [address] [place] [address] [facility] [id number] PHYS DOC NOTES: MEDICAL INFORMATION: Prescriptions Given: New Medications Printed Prescriptions dicyclomine (Bentyl 10 mg Cap) 2 Capsules By Mouth 4 times a day. Refills: 0. pantoprazole (pantoprazole 40 mg Oral EC Tab) 1 Tablets By Mouth every day. Refills: 0. PATIENT EDUCATION INFORMATION: Instructions: Nonspecific Chest Pain, Adult; Abdominal Pain, Adult Follow up: With: Address: When: [place] [phone] Business (1) In 3 days 07/31/2022 Comments: Return to the emergency room if your symptoms recur or any new symptom DIAGNOSIS: 1:Chest pain; 2:Abdominal pain Normal [facility] ED Patient Education Noteon 07-28-2022 ED Patient Education Note Gastroenterology Abdominal Pain, Adult Pain in the abdomen (abdominal pain) can be caused by many things. Often, abdominal pain is not serious and it gets better with no treatment or by being treated at home. However, sometimes abdominal pain is serious. Your health care provider will ask questions about your medical history and do a physical exam to try to determine the cause of your abdominal pain. Follow these instructions at home: Medicines ? Take kksr-ldj-kyqvqww and prescription medicines only as told by your health care provider. ? Do not take a laxative unless told by your health care provider. General instructions ? Watch your condition for any changes. ? Drink enough fluid to keep your urine pale yellow. ? Keep all follow-up visits as told by your health care provider. This is important. Contact a health care provider if: ? Your abdominal pain changes or gets worse. ? You are not hungry or you lose weight without trying. ? You are constipated or have diarrhea for more than 2?3 days. ? You have pain when you urinate or have a bowel movement. ? Your abdominal pain wakes you up at night. ? Your pain gets worse with meals, after eating, or with certain foods. ? You are vomiting and cannot keep anything down. ? You have a fever. ? You have blood in your urine. Get help right away if: ? Your pain does not go away as soon as your health care provider told you to expect. ? You cannot stop vomiting. ? Your pain is only in areas of the abdomen, such as the right side or the left lower portion of the abdomen. Pain on the right side could be caused by appendicitis. ? You have bloody or black stools, or stools that look like tar. ? You have severe pain, cramping, or bloating in your abdomen. ? You have signs of dehydration, such as: ? Dark urine, very little urine, or no urine. ? Cracked lips. ? Dry mouth. ? Sunken eyes. ? Sleepiness. ? Weakness. ? You have trouble breathing or chest pain. Summary ? Often, abdominal pain is not serious and it gets better with no treatment or by being treated at home. However, sometimes abdominal pain is serious. ? Watch your condition for any changes. ? Take brpn-ktr-dodshlu and prescription medicines only as told by your health care provider. ? Contact a health care provider if your abdominal pain changes or gets worse. ? Get help right away if you have severe pain, cramping, or bloating in your abdomen. This information is not intended to replace advice given to you by your health care provider. Make sure you discuss any questions you have with your health care provider. Document Released: 07/10/2006 Document Revised: 02/08/2020 Document Reviewed: 02/08/2020 [employer] Patient Education ? 2019 [employer] Pulmonary Medicine Nonspecific Chest Pain, Adult Chest pain can be caused by many different conditions. It can be caused by a condition that is life-threatening and requires treatment right away. It can also be caused by something that is not life-threatening. If you have chest pain, it can be hard to know the difference, so it is important to get help right away to make sure that you do not have a serious condition. Some life-threatening causes of chest pain include: ? Heart attack. ? A tear in the body's main blood vessel (aortic dissection). ? Inflammation around your heart (pericarditis). ? A problem in the lungs, such as a blood clot (pulmonary embolism) or a collapsed lung (pneumothorax). Some non life-threatening causes of chest pain include: ? Heartburn. ? Anxiety or stress. ? Damage to the bones, muscles, and cartilage that make up your chest wall. ? Pneumonia or bronchitis. ? Shingles infection (varicella-zoster virus). Chest pain can feel like: ? Pain or discomfort on the surface of your chest or deep in your chest. ? Crushing, pressure, aching, or squeezing pain. ? Burning or tingling. ? Dull or sharp pain that is worse when you move, cough, or take a deep breath. ? Pain or discomfort that is also felt in your back, neck, jaw, shoulder, or arm, or pain that spreads to any of these areas. Your chest pain may come and go. It may also be constant. Your health care provider will do lab tests and other studies to find the cause of your pain. Treatment will depend on the cause of your chest pain. Follow these instructions at home: Medicines ? Take fhao-qbz-dwuqhzq and prescription medicines only as told by your health care provider. ? If you were prescribed an antibiotic, take it as told by your health care provider. Do not stop taking the antibiotic even if you start to feel better. Lifestyle ? Rest as directed by your health care provider. ? Do not use any products that contain nicotine or tobacco, such as cigarettes and e-cigarettes. If you need help quitting, ask your health care provider. ? Do not drink alcohol. ? Make healthy lifestyle choices (more content not included)... Normal [facility] ED Patient Summaryon 022 ED Patient Summary [place] [id number] Patient Discharge Instructions Person Information Name: TRINA NELSON Age: 21 Years Arrival Date: 07/28/2022 10:39:33 Discharge Diagnosis: 1:Chest pain; 2:Abdominal pain Primary Care Physician: Pascale Rodríguez MD Provider Information Primary Provider: Anna Avendano M.D. Advanced Spanish Language Lecturer:None The exam and treatment you received in the Emergency Department were for an urgent problem and are not intended as complete care. It is important that you follow up with a doctor, nurse practitioner, or physician?s early childhood teacher assistant for ongoing care. If your symptoms become worse or you do not improve as expected and you are unable to reach your usual health care provider, you should return to the Emergency Department. We are available 24 hours a day. TRINA NELSON has been given the following list of patient education materials, prescriptions and follow-up instructions: Follow-up Instructions: With: Address: When: Pascale Rodríguez [address] [place], [place] [id number] [phone] Business (1) In 3 days 07/31/2022 Comments: Return to the emergency room if your symptoms recur or any new symptom In the event that this physician does not participate in your insurance network, please consult with your insurance company to find a nearby participating provider. Patient Education Materials: Nonspecific Chest Pain, Adult; Abdominal Pain, Adult A MESSAGE TO ALL PATIENTS REGARDING OPIOIDS PRESCRIPTION OPIOIDS: WHAT YOU NEED TO KNOW Prescription opioids can be used to help relieve nevjbkcs-uo-rlbpst pain and are often prescribed following a surgery or injury, or for certain health conditions. These medications can be an important part of the treatment but also come with serious risks. It is important to work with your healthcare provider to make sure you are getting the safest, most effective care. WHAT ARE THE RISKS AND SIDE EFFECTS OF OPIOID USE? Prescription opioids carry serious risks of addiction and overdose, especially with prolonged use. An opioid overdose, often marked by slowed breathing, can cause sudden . The use of prescription opioids can have a number of side effects as well, even when taken as directed: ? Tolerance?meaning you might need to take more of the medication for the same pain relief ? Physical dependence?meaning you have symptoms of withdrawal when a medication is stopped ? Increased sensitivity to pain ? Constipation ? Nausea, vomiting, and dry mouth ? Sleepiness and dizziness ? Confusion ? Depression ? Low levels of testosterone that can result in lower sex drive, energy, and strength ? Itching and sweating RISKS ARE GREATER WITH: ? History of drug misuse, substance use disorder, or overdose ? Mental health conditions (such as depression or anxiety) ? Sleep apnea ? Older age (65 years and older) ? Avoid alcohol while taking prescription opioids. Also, unless specifically advised by your health care provider, medications to avoid include: ? Benzodiazepines (such as Xanax or Valium) ? Muscle relaxants (such as Soma or Flexeril) ? Hypnotics (such as Ambien or Lunesta) ? Other prescription opioids KNOW YOUR OPTIONS Talk to your health care provider about ways to manage your pain that don?t involve prescription opioids. Some of these options may actually work better and have fewer risks and side effects. Options may include: ? Pain relievers such as acetaminophen, ibuprofen, and naproxen ? Some medication that are also used for depression or seizures ? Physical therapy and exercise ? Cognitive behavioral therapy, a psychological, goal-directed approach, in which patients learn how to modify physical, behavioral, and emotional triggers of pain and stress. IF YOU ARE PRESCRIBED OPIOIDS FOR PAIN: ? Never take opioids in greater amounts or more often than prescribed. ? Follow up with your primary health care provider. o Work together to create a plan on how to manage your pain. o Talk about ways to help manage your pain that don?t involve prescription opioids. o Talk about any and all concerns and side effects. ? Help prevent misuse and abuse o Never sell or share prescription opioids. o Never use another person?s prescription opioids. ? Store prescription opioids in a secure place and out of reach of others (this may include visitors, children, friends, and family). ? Safely dispose of unused prescription opioids: Find your community drug take-back program or your pharmacy mail-back program, or flush them down the toilet, following guidance from the Food and Drug Administration (www.fda.gov/Drugs/Re sourcesForYou). ? Visit www.cdc.gov/drugoverd ose to learn about the risks of opioids abuse and overdose. ? If you believe you may be struggling with addiction, tell your hea (more content not included)... Normal [facility] HEMATOLOGYOrdered By: SYSTEM SYSTEM on 07-28-2022 Basophils/100 WBC (Bld) 0.8 % Normal 0.0 - 2.0 % [facility]eAutoSS Basophils/Leukocytes Auto (Bld) [Pure # fraction] 0.0 E9/L Normal 0.0 - 0.2 E9/L [facility]eAutoSS Eosinophils/100 WBC (Bld) 2.7 % Normal 0.0 - 8.0 % [facility]eAutoSS Eosinophils/Leukocytes Auto (Bld) [Pure # fraction] 0.1 E9/L Normal 0.0 - 0.5 E9/L [facility]Auto[facility] Lymphocytes/100 WBC (Bld) 37.3 % Normal 14.0 - 50.0 % [facility]eAutoSS Lymphocytes/Leukocytes Auto (Bld) [Pure # fraction] 1.6 E9/L Normal 1.0 - 4.0 E9/L [facility]eAutoSS Monocytes/100 WBC (Bld) 14.0 % Normal 4.0 - 14.0 % [facility]eAutoSS Monocytes/Leukocytes Auto (Bld) [Pure # fraction] 0.6 E9/L Normal 0.2 - 1.0 E9/L [facility]eAutoSS Neutrophils/100 WBC (Bld) 45.2 % Normal 36.0 - 75.0 % [facility]eAutoSS Neutrophils/Leukocytes Auto (Bld) [Pure # fraction] 2.0 E9/L Normal 2.0 - 7.5 E9/L [facility] HEMATOLOGYOrdered By: Mago Rothman on 07-28-2022 Erythrocyte distribution width (RBC) [Ratio] 13.1 % Normal 10.9 - 14.2 % [facility] Hematocrit (Bld) [Volume fraction] 38.9 % Normal 34.0 - 46.0 % [facility] Hemoglobin (Bld) [Mass/Vol] 13.3 g/dL Normal 12.0 - 16.0 gm/dL [facility]Auto[facility] MCH (RBC) [Entitic mass] 30.6 pg Normal 27.0 - 34.0 pg [facility] MCHC (RBC) [Mass/Vol] 34.3 g/dL Normal 31.4 - 36.0 gm/dL [facility]eAutoSS MCV (RBC) [Entitic vol] 89.3 fL Normal 80.0 - 100.0 fL [facility] HemeAutoSS Platelet mean volume (Bld) [Entitic vol] 9.1 fL Normal 6.4 - 10.8 fL [facility] HemeAutoSS Platelets (Bld) [#/Vol] 225.0 E9/L Normal 150.0 - 500.0 E9/L [facility] HemeAutoSS RBC (Bld) [#/Vol] 4.4 E12/L Normal 4.3 - 5.9 E12/L [facility] HemeAutoSS WBC corrected for nucl RBC Auto (Bld) [#/Vol] 4.3 E9/L Normal 4.0 - 11.0 E9/L [facility] HemeAutoSS Hep Func Panelon 07-28-2022 Bilirubin.indirect [Mass or moles/Vol] UTC Abnormal 0.1-0.9 [facility] Comment on above: Result Comment: Resu lt verified by [employer]. Performed result UTC (Unable to Calculate) was sent as an Alpha code due the inability to calculate a valid numeric value. Performed By: #### 2 [id number], 0568691, 7499112, 57687542, 08889589, 2955586, 88856251, 3334964 ####[facility] [address] [place] [address] Albumin [Mass/Vol] 4.3 g/dL Normal 3.3-5.0 [facility] Comment on above: Performed By: #### 2 487837, 1060899, 5009837, 03944840, 40668598, 5231078, 98374461, 1410433 ####[facility] [address] [place] [address] Albumin/Globulin (S) [Mass conc ratio] 1.2 Normal 1.1-2.2 [facility] Comment on above: Performed By: #### 2 972333, 7112116, 4771430, 42720044, 30638169, 1796754, 67555607, 9389030 ####[facility] [address] [place] [address] ALP [Catalytic activity/Vol] 50 Int._Unit/L Normal 21-98 [facility] Comment on above: Performed By: #### 2 958497, 7346148, 8457461, 34679240, 39658798, 1013110, 44478248, 6856211 ####[facility] [address] [place] [address] ALT No additional P-5'-P [Catalytic activity/Vol] 18 Int._Unit/L Normal 6-46 [facility] Comment on above: Performed By: #### 2 872646, 1889948, 9235463, 58489085, 80517444, 6008395, 94017593, 6256273 ####[place] [address] [place] [address] AST [Catalytic activity/Vol] 23 Int._Unit/L Normal 5-43 [facility] Comment on above: Performed By: #### 2 802877, 4319942, 1454738, 75434133, 70511235, 6309701, 86015177, 4839812 ####[place] [address] [place] [address] Globulin (S) [Mass/Vol] 3.7 g/dL Normal 1.4-4.0 [facility] Comment on above: Performed By: #### 2 984436, 2866478, 3776759, 82805603, 47297363, 8357047, 22354384, 6377933 ####[place] [address] [place] [address] Protein [Mass/Vol] 8.0 g/dL High 6.0-7.8 [facility] Comment on above: Performed By: #### 2 672888, 0553274, 6866639, 82548397, 79528179, 1057254, 43084661, 0351459 ####[place] [address] [place] [address] Bilirubin [Mass/Vol] mg/dL Normal 0.0-1.1 [facility] Comment on above: Performed By: #### 2 234010, 2902070, 7369244, 00621178, 23017817, 9505487, 04732621, 7617293 ####[facility] [address] [place] [address] Bilirubin.direct [Mass/Vol] mg/dL Normal 0.1-0.4 [facility] Comment on above: Performed By: #### 2 163989, 0111657, 4698775, 92249151, 14112862, 6236905, 79618778, 9140845 ####[facility] [address] [place] [address] Lipase Levelon 07-28-2022 Lipase [Catalytic activity/Vol] 40 U/L Normal 13-58 [facility] Comment on above: Performed By: #### 2 193270, 1444438, 2156982, 06864882, 86665937, 5670739, 69351767, 4915241 ####[facility] [address] [place] [address] PT & PTTon 07-28-2022 aPTT Coag (PPP) [Time] 34.8 second(s) Normal 25.1-36.5 [facility] Comment on above: Result Comment: Para meter 15 days - 4 weeks 1 - 5 months 6 - 11 months 1 - 5 years 6 - 10 years 11 - 17 years PTT Mean: 35.4 (27.6-45.6) Mean: 33.5 (24.8-40.7) Mean: 32.4 (25.1-40.7) Mean: 31.6 (24.0-39.2) Mean: 31.6 (26.9-38.7) Mean: 31.0 (24.6-38.4) Pediatric Reference ranges were obtained from a study by Bull Lima et al. prepared from 1437 samples obtained at 7 different centers using the same coagulation reagent and instrumentation as [facility]. Currently there are no coagulation studies available worldwide for children to 14 days, and no normal ranges. Heparin therapeutic range (represented by Anti-Factor Xa activity of 0.2 - 0.4 U/mL) corresponds to PTT of 56.6 - 109.0 sec. Performed By: #### 2 796243, 7171501, 3428217, 86329338, 82362699, 1717017, 40288935, 2211523 ####[facility] [address] [place] [address] INR Coag (PPP) [Relative time] 1.0 {INR} Invalid Interpretation Code [facility] Comment on above: Result Comment: INR results are specifically intended to assess patients stabilized on long-term Anticoagulation therapy suggested INR?s ?Less Intensive Anticoagulation? 2.0 ? 3.0 Conventional Range 3.0 ? 4.5 Performed By: #### 2 274202, 9222035, 0015234, 49518734, 34614079, 6128904, 99091401, 3526721 ####[facility] [address] [place] [address] PT Coag (PPP) [Time] 11.5 second(s) Normal 9.4-12.5 [facility] Comment on above: Result Comment: 15 d ays - 4 weeks 1 - 5 months 6 -11 months 1 ? 5 years 6 ? 10 years 11 -17 years Mean: 11.2 (9.5 ? 12.6) Mean: 11.0 (9.7 ? 12.8) Mean: 11.0 (9.8 ? 13.0) Mean: 11.3 (9.9 ? 13.4) Mean: 11.7 (10.0 ? 14.6) Mean: 11.8 (10.0 - 14.1) Pediatric Reference ranges were obtained from a study by Bull Lima et al. prepared from 1437 samples obtained at 7 different centers using the same coagulation reagent and instrumentation as [facility]. Currently there are no coagulation studies available worldwide for children to 14 days, and no normal ranges. Performed By: #### 2 416533, 4512735, 7411065, 43578928, 40238121, 3355649, 19786895, 2674748 ####[facility] [address] [place] [address] Prescriptions/Work Noteson Prescriptions/Work Notes [id number]# 1.00CD:127 Normal [facility] Troponin 0 Hr.on 07-28-2022 Troponin I.cardiac [Mass/Vol] ng/mL Low 10.10-27.10 [facility] Comment on above: Result Comment: The 95% CI (Confidence Interval) PPV (Positive Predictive Value) for myocardial infarction in females is 38 pg/mL, in males 51 pg/mL. The results should be used in conjunction with clinical conditions of myocardial infarction. (Access High Sensitivity Troponin I Instructions For Use, Hannah Tee, May 2018) Performed By: #### 2 404792, 9901365, 9289926, 95752510, 42302572, 8031936, 45386854, 2379660 ####[facility] [address] [place] [address] U BetaHcg QualOrdered By: Damian Orozco on 07-28-2022 HCG.beta subunit (U) [Moles/Vol] Negative Normal [facility] Man Sero Comment on above: Performed By: #### 1 [id number], [id number] ####[facility] [address] [place] [address] UA With Cult Reflexon 2021 Bacteria LM Ql (Urine sed) TRACE Normal Trace [facility] Comment on above: Performed By: #### 1 [id number], [id number] ####[facility] [id number] [place] [address] Bilirubin Ql (U) Negative Normal Negative [facility] Comment on above: Performed By: #### 1 [id number], [id number] ####[facility] [address] [place] [address] Clarity (U) CLEAR Normal Clear [facility] Comment on above: Performed By: #### 1 [id number], [id number] ####[address] [place] [address] Color (U) YELLOW Normal Yellow [facility] Comment on above: Performed By: #### 1 [id number], [id number] ####[address] [address] Epithelial cells.squamous LM.HPF (Urine sed) [#/Area] 9-10 Normal 0-2 [facility] Comment on above: Performed By: #### 1 [id number], [id number] ####[facility] [id number] [place] [address] Glucose Test strip (U) [Mass/Vol] Negative Normal Negative [facility] Comment on above: Performed By: #### 1 [id number], [id number] ####[address] [address] Hemoglobin Ql (U) TRACE Abnormal Negative [facility] Comment on above: Performed By: #### 1 [id number], [id number] ####[address] [address] Ketones (U) [Mass/Vol] Negative Normal Negative [facility] Comment on above: Performed By: #### 1 [id number], [id number] ####[address] [address] Loco.plasma/Loco .RBC (Bld) [Mass ratio] 0-3 Normal 0-3 [facility] Comment on above: Performed By: #### 1 [id number], [id number] ####[address] [address] Mucus Ql (Urine sed) TRACE Normal [facility] Comment on above: Performed By: #### 1 [id number], [id number] ####[address] [address] Nitrite Ql (U) Negative Normal Negative [facility] Comment on above: Performed By: #### 1 [id number], [id number] ####[address] [address] pH (U) 7.0 [pH] Invalid Interpretation Code 5.0-9.0 [facility] Comment on above: Performed By: #### 1 [id number], [id number] ####[address] [address] Protein (U) [Mass/Vol] Negative Normal Negative [facility] Comment on above: Performed By: #### 1 [id number], [id number] ####[id number] Specific gravity (U) [Rel density] 1.010 Invalid Interpretation Code 1.005-1.030 [facility] Comment on above: Performed By: #### 1 [id number], [id number] ####[id number] Type of Urine collection method Clean Catch Normal [facility] Comment on above: Performed By: #### 1 [id number], [id number] ####[address] Urobilinogen Qn (U) 0.2 {Lian'U}/dL Normal 0.0-1.0 [facility] Comment on above: Performed By: #### 1 [id number], [id number] ####[address] WBC Auto Ql (U) Negative Normal Negative [facility] Comment on above: Performed By: #### 1 [id number], [id number] ####[address] WBC LM.HPF (Urine sed) [#/Area] 0-5 Normal 0-5 [facility] Comment on above: Performed By: #### 1 [id number], [id number] ####[id number] URINALYSISOrdered By: Homero Orozco on 07-28-2022 Bacteria LM Ql (Urine sed) Trace /HPF Normal Trace/HPF [facility] UA Auto SS Bilirubin Ql (U) Negative (07/28/22 12:00 PM) Normal Negative [facility] UA Auto SS Clarity (U) Clear (07/28/22 12:00 PM) Normal Clear [facility] UA Auto SS Color (U) Yellow (07/28/22 12:00 PM) Normal Yellow [facility] UA Auto SS Epithelial cells.squamous LM.HPF (Urine sed) [#/Area] 9-10 /HPF Normal 0-2/HPF [facility] UA Aut o SS Glucose Test strip (U) [Mass/Vol] Negative (07/28/22 12:00 PM) Normal Negative [facility] UA Auto SS Hemoglobin Ql (U) Trace *ABN* (07/28/22 12:00 PM) Invalid Interpretation Code Negative [facility] UA Auto SS Ketones (U) [Mass/Vol] Negative (07/28/22 12:00 PM) Normal Negative [facility] UA Auto SS Loco.plasma/Loco .RBC (Bld) [Mass ratio] 0-3 /HPF Normal 0-3/HPF [facility] UA Auto SS Mucus Ql (Urine sed) Trace (07/28/22 12:00 PM) Normal [facility] UA Auto SS Nitrite Ql (U) Negative (07/28/22 12:00 PM) Normal Negative [facility] UA Auto SS pH (U) 7.0 *NA* (07/28/22 12:00 PM) Invalid Interpretation Code 5.0 - 9.0 [facility] UA Auto SS Protein (U) [Mass/Vol] Negative (07/28/22 12:00 PM) Normal Negative [facility] UA Auto SS Specific gravity (U) [Rel density] 1.010 *NA* (07/28/22 12:00 PM) Invalid Interpretation Code 1.005 - 1.030 [facility] UA Auto SS UA Spec Desc Clean Catch (07/28/22 12:00 PM) Normal [facility] UA Auto SS Urobilinogen Qn (U) 0.1883183 {Lian'U}/dL Normal 0.0 - 1.0 EU/dL [facility] UA Auto SS WBC Auto Ql (U) Negative (07/28/22 12:00 PM) Normal Negative [facility] UA Auto SS WBC LM.HPF (Urine sed) [#/Area] 0-5 /HPF Normal 0-5/HPF [facility] UA Auto SS XR Chest Single Viewon 07-28 XR Chest Single View Exam Date/Time: 07/28/2022 11:51 EDT Reason for Exam: Chest pain Report IMPRESSION: No acute radiographic abnormality. EXAMINATION: XR Chest Single View Clinical History: Chest pain Comparison: None RESULT: No consolidation. Hyperinflated lungs. No pleural effusion. No pneumothorax. Normal pulmonary vascular pattern. Normal cardiomediastinal silhouette. No acute osseous findings. FINAL REPORT Dictated: 07/28/2022 1:27 pm Ilya Bonds MD. Signed (Electronic Signature): 07/28/2022 1:27 pm Signed by: Ilya Bonds MD Transcribed by: DARREN Technologist: Normal [facility] eGFRon 07-28-2022 GFR/1.73 sq M.predicted among blacks MDRD (S/P/Bld) [Vol rate/Area] mL/min/{1.73_m2} Normal >=59 [facility] Comment on above: Order Comment: Order added by Discern Expert. Result Comment: eGFR is race adjusted. AA=. Performed By: #### 2 [id number], [id number], [id number], [id number], [id number], [id number], [id number], [id number] ####[facility] [id number] [place] [address] GFR/1.73 sq M.predicted among non-blacks MDRD (S/P/Bld) [Vol rate/Area] mL/min/{1.73_m2} Normal >=59 [facility] Comment on above: Order Comment: Order added by Discern Expert. Result Comment: Pool Lifeguard erin kidney disease could be indicated at eGFR's of less than 60 mL/min/1.73m2. Kidney failure is indicated at less than 15 mL/min/1.73m2. Performed By: #### 2 [id number], [id number], [id number], [id number], [id number], [id number], [id number], [id number] ####[facility] [address] [place] [address] XR FOOT LEFT (MIN 3 VIEWS)on 07-22-2020 XR FOOT LEFT (MIN 3 VIEWS) EXAMINATION: XR FOOT LEFT (MIN 3 VIEWS) CLINICAL HISTORY: pain COMPARISON: FINDINGS: Three views of the left foot are submitted. No acute fractures. No dislocations. No focal bony abnormalities IMPRESSION: NO ACUTE FRACTURES Interpreted by: Eric Barber MD Signed by: Eric Barber MD 07/22/20 Final result Normal [facility] CBCon 03-02-2020 Erythrocyte distribution width (RBC) [Ratio] 14.6 % High 11.5 - 14.5 % [place] Hematocrit (Bld) [Volume fraction] 30.3 % Low 37 - 47 % [place] Hemoglobin (Bld) [Mass/Vol] 9.9 g/dL Low 12 - 16 g/dL [place] Interpretation and review of laboratory results Abnormal [place] MCH (RBC) [Entitic mass] 28.8 pg 27 - 31.3 pg [place] MCHC (RBC) [Mass/Vol] 32.7 % Low 33 - 37 % [place] MCV (RBC) [Entitic vol] 88.1 fL 82 - 100 fL [place] Platelets (Bld) [#/Vol] 132 10*3/uL 130 - 400 K/uL [place] RBC (Bld) [#/Vol] 3.44 10*6/uL Low [place] WBC (Bld) [#/Vol] 13.1 10*3/uL High 4.5 - 11 K/uL [place] CBC With Platelet No Differe ntialon 03-02-2020 Erythrocyte distribution width (RBC) [Ratio] 14.6 % Critically high 11.5-14.5 [facility] Comment on above: Performed By: #### U A #### [facility] [address] [facility] [place] [address] Hematocrit (Bld) [Volume fraction] 30.3 % Low 37.0-47.0 [facility] Comment on above: Performed By: #### U A #### [facility] [address] [facility] [address] Hemoglobin (Bld) [Mass/Vol] 9.9 g/dL Low 12.0-16.0 [facility] Comment on above: Performed By: #### U A #### [facility] [address] [facility] [address] MCH (RBC) [Entitic mass] 28.8 pg Normal 27.0-31.3 [facility] Comment on above: Performed By: #### U A #### [facility] [address] [place] [address] MCHC (RBC) [Mass/Vol] 32.7 % Low 33.0-37.0 [facility] Comment on above: Performed By: #### U A #### [facility] [address] [place] [address] MCV (RBC) [Entitic vol] 88.1 fL Normal 82.0-100.0 [facility] Comment on above: Performed By: #### U A #### [facility] [address] [place] [address] Platelets (Bld) [#/Vol] 132 10*3/uL Normal 130-400 [facility] Comment on above: Performed By: #### U A #### [facility] [address] [place] [address] RBC (Bld) [#/Vol] 3.44 10*6/uL Low 4.20-5.40 [facility] Comment on above: Performed By: #### U A #### [facility] [address] [place] [address] WBC (Bld) [#/Vol] 13.1 10*3/uL Critically high 4.5-11.0 [facility] Comment on above: Performed By: #### U A #### [facility] [address] [place] [address] Rubella Ab, IgGon 03-02-2020 Rubella Ab, IgG 135.9 IU/mL Normal [facility] Comment on above: Result Comment: Brigitte ent's result indicates immunity. Default Normal Ranges >=10 Presumed Immune <10 Presumed Not immune Performed By: #### U A #### [facility] [address] [place] [address] CBC With Platelet and Differ entialon 03-01-2020 Basophils (Bld) [#/Vol] 0.0 10*3/uL Normal 0.0-0.2 [facility] Comment on above: Performed By: #### C BCWD #### [facility] [address] [place] [address] Basophils/100 WBC (Bld) 0.3 % Normal [facility] Comment on above: Performed By: #### C BCWD #### [facility] [address] [place] [address] Eosinophils (Bld) [#/Vol] 0.1 10*3/uL Normal 0.0-0.7 [facility] Comment on above: Performed By: #### C BCWD #### [facility] [address] [place] [address] Eosinophils/100 WBC (Bld) 0.9 % Normal [facility] Comment on above: Performed By: #### C BCWD #### [facility] [address] [place] [address] Erythrocyte distribution width (RBC) [Ratio] 14.6 % Critically high 11.5-14.5 [facility] Comment on above: Performed By: #### C BCWD #### [facility] [address] [place] [address] Hematocrit (Bld) [Volume fraction] 35.7 % Low 37.0-47.0 [facility] Comment on above: Performed By: #### C BCWD #### [facility] [address] [place] [address] Hemoglobin (Bld) [Mass/Vol] 11.7 g/dL Low 12.0-16.0 [facility] Comment on above: Performed By: #### C BCWD #### [facility] [address] [place] [address] Lymphocytes (Bld) [#/Vol] 1.6 10*3/uL Normal 1.0-4.8 [facility] Comment on above: Performed By: #### C BCWD #### [facility] [address] [place] [address] Lymphocytes/100 WBC (Bld) 22.3 % Normal [facility] Comment on above: Performed By: #### C BCWD #### [facility] [address] [place] [address] MCH (RBC) [Entitic mass] 28.8 pg Normal 27.0-31.3 [facility] Comment on above: Performed By: #### C BCWD #### [facility] [address] [place] [address] MCHC (RBC) [Mass/Vol] 32.8 % Low 33.0-37.0 [facility] Comment on above: Performed By: #### C BCWD #### [facility] [address] [place] [address] MCV (RBC) [Entitic vol] 87.9 fL Normal 82.0-100.0 [facility] Comment on above: Performed By: #### C BCWD #### [facility] [address] [place] [address] Monocytes (Bld) [#/Vol] 1.0 10*3/uL Critically high 0.2-0.8 [facility] Comment on above: Performed By: #### C BCWD #### [facility] [address] [place] [address] Monocytes/100 WBC (Bld) 13.3 % Normal [facility] Comment on above: Performed By: #### C BCWD #### [facility] [address] [place] [address] Neutrophils (Bld) [#/Vol] 4.5 10*3/uL Normal 1.4-6.5 [facility] Comment on above: Performed By: #### C BCWD #### [facility] [address] [place] [address] Neutrophils/100 WBC (Bld) 63.2 % Normal [facility] Comment on above: Performed By: #### C BCWD #### [facility] [address] [place] [address] Platelets (Bld) [#/Vol] 177 10*3/uL Normal 130-400 [facility] Comment on above: Performed By: #### C BCWD #### [facility] [address] [place] [address] RBC (Bld) [#/Vol] 4.06 10*6/uL Low 4.20-5.40 [facility] Comment on above: Performed By: #### C BCWD #### [facility] [address] [place] [address] WBC (Bld) [#/Vol] 7.2 10*3/uL Normal 4.5-11.0 [facility] Comment on above: Performed By: #### C BCWD #### [facility] [address] [place] [address] CBC auto differentialon 02-11 Basophils (Bld) [#/Vol] 0.0 10*3/uL 0 - 0.2 K/uL [place] Basophils/100 WBC (Bld) 0.3 % [place] Eosinophils (Bld) [#/Vol] 0.1 10*3/uL 0 - 0.7 K/uL [place] Eosinophils/100 WBC (Bld) 0.9 % [place] Erythrocyte distribution width (RBC) [Ratio] 14.6 % High 11.5 - 14.5 % [place] Hematocrit (Bld) [Volume fraction] 35.7 % Low 37 - 47 % [place] Hemoglobin (Bld) [Mass/Vol] 11.7 g/dL Low 12 - 16 g/dL [place] Interpretation and review of laboratory results Abnormal [place] Lymphocytes (Bld) [#/Vol] 1.6 10*3/uL 1 - 4.8 K/uL [place] Lymphocytes/100 WBC (Bld) 22.3 % [place] MCH (RBC) [Entitic mass] 28.8 pg 27 - 31.3 pg [place] MCHC (RBC) [Mass/Vol] 32.8 % Low 33 - 37 % [place] MCV (RBC) [Entitic vol] 87.9 fL 82 - 100 fL [place] Monocytes (Bld) [#/Vol] 1.0 10*3/uL High 0.2 - 0.8 K/uL [place] Monocytes/100 WBC (Bld) 13.3 % [place] Neutrophils Absolute 4.5 K/uL 1.4 - 6 .5 K/uL [place] Neutrophils/100 WBC (Bld) 63.2 % [place] Platelets (Bld) [#/Vol] 177 10*3/uL 130 - 400 K/uL [place] RBC (Bld) [#/Vol] 4.06 10*6/uL Low [place] WBC (Bld) [#/Vol] 7.2 10*3/uL 4.5 - 11 K/uL [place] Comprehensive Metabolic Pane cristin 03-01-2020 Anion gap [Moles/Vol] 14 mmol/L Normal 9-15 [facility] Comment on above: Performed By: #### C MP #### [facility] [address] [place] [address] Albumin [Mass/Vol] 3.5 g/dL Normal 3.5-4.6 [facility] Comment on above: Performed By: #### C MP #### [facility] [address] [place] [address] ALP [Catalytic activity/Vol] 148 U/L Critically high 40-130 [facility] Comment on above: Performed By: #### C MP #### [facility] [address] [place] [address] ALT [Catalytic activity/Vol] 24 U/L Normal 0-33 [facility] Comment on above: Performed By: #### C MP #### [facility] [address] [place] [address] AST [Catalytic activity/Vol] 22 U/L Normal 0-35 [facility] Comment on above: Performed By: #### C MP #### [facility] [address] [place] [address] Bilirubin [Mass/Vol] 0.3 mg/dL Normal 0.2-0.7 [facility] Comment on above: Performed By: #### C MP #### [facility] [address] [place] [address] Calcium [Mass/Vol] 9.5 mg/dL Normal 8.5-9.9 [facility] Comment on above: Performed By: #### C MP #### [facility] [address] [place] [address] Chloride [Moles/Vol] 103 mmol/L Normal 95-107 [facility] Comment on above: Performed By: #### C MP #### [facility] [address] [place] [address] CO2 [Moles/Vol] 20 mmol/L Normal 20-31 [facility] Comment on above: Performed By: #### C MP #### [facility] [address] [place] [address] Creatinine [Mass/Vol] 0.39 mg/dL Low 0.50-0.90 [facility] Comment on above: Performed By: #### C MP #### [facility] [address] [place] [address] GFR/1.73 sq M predicted among blacks MDRD (S/P/Bld) [Vol rate/Area] mL/min/{1.73_m2} Normal >60 [facility] Comment on above: Result Comment: >60 mL/min/1.73m2 EGFR, calc. for ages 18 and older using the MDRD formula (not corrected for weight), is valid for stable renal function. Performed By: #### C MP #### [facility] [address] [place] [address] GFR/1.73 sq M.predicted MDRD (S/P/Bld) [Vol rate/Area] mL/min/{1.73_m2} Normal >60 [facility] Comment on above: Result Comment: >60 mL/min/1.73m2 EGFR, calc. for ages 18 and older using the MDRD formula (not corrected for weight), is valid for stable renal function. Performed By: #### C MP #### [facility] [address] [place] [address] Globulin (S) [Mass/Vol] 3.3 g/dL Normal 2.3-3.5 [facility] Comment on above: Performed By: #### C MP #### [facility] [address] [place] [address] Glucose [Mass/Vol] 83 mg/dL Normal 70-99 [facility] Comment on above: Performed By: #### C MP #### [facility] [address] [place] [address] Potassium [Moles/Vol] 3.6 mmol/L Normal 3.4-4.9 [facility] Comment on above: Performed By: #### C MP #### [facility] [address] [place] [address] Protein [Mass/Vol] 6.8 g/dL Normal 6.3-8.0 [facility] Comment on above: Performed By: #### C MP #### [facility] [address] [place] [address] Sodium [Moles/Vol] 137 mmol/L Normal 135-144 [facility] Comment on above: Performed By: #### C MP #### [facility] [address] [place] [address] Urea nitrogen [Mass/Vol] 6 mg/dL Normal 6-20 [facility] Comment on above: Performed By: #### C MP #### [facility] [address] [place] [address] Comprehensive metabolic pane cristin 03-01-2020 Albumin [Mass/Vol] 3.5 g/dL 3.5 - 4.6 g/dL [place] ALP [Catalytic activity/Vol] 148 U/L High 40 - 130 U/L [place] ALT [Catalytic activity/Vol] 24 U/L 0 - 33 U/L [place] Anion gap [Moles/Vol] 14 mmol/L [place] AST [Catalytic activity/Vol] 22 U/L 0 - 35 U/L [place] Bilirubin Ql (U) 0.3 mg/dL 0.2 - 0.7 mg/dL [place] Calcium [Mass/Vol] 9.5 mg/dL 8.5 - 9.9 mg/dL [place] Chloride [Moles/Vol] 103 mmol/L [place] CO2 [Moles/Vol] 20 mmol/L [place] Creatinine [Mass/Vol] 0.39 mg/dL Low 0.5 - 0.9 mg/dL [place] GFR >60.0 >60 [place] Comment on above: >60 mL/min/1.73m2 EG FR, calc. for ages 18 and older using the MDRD formula (not corrected for weight), is valid for stable renal function. GFR Non- >60.0 >60 [place] Comment on above: >60 mL/min/1.73m2 EG FR, calc. for ages 18 and older using the MDRD formula (not corrected for weight), is valid for stable renal function. Globulin (S) [Mass/Vol] 3.3 g/dL 2.3 - 3.5 g/dL [place] Glucose [Mass/Vol] 83 mg/dL 70 - 99 mg/dL [place] Interpretation and review of laboratory results Abnormal [place] Potassium [Moles/Vol] 3.6 mmol/L [place] Protein [Mass/Vol] 6.8 g/dL 6.3 - 8 g/dL [place] Sodium [Moles/Vol] 137 mmol/L [place] Urea nitrogen [Mass/Vol] 6 mg/dL 6 - 20 mg/dL [place] DRUG SCREEN MULTI URINEon Amphetamine Screen, Urine Negative Negative <1000 ng/mL [place] Barbiturate Screen, Ur Negative Negat melanie < 200 ng/mL [place] Benzodiazepine Screen, Urine Negative Negative < 200 ng/mL [place] Cannabinoid Scrn, Ur Negative Negativ e < 50 ng/mL [place] Cocaine Metabolite Screen, Urine Negative Negative < 300 ng/mL [place] Drug Screen Comment: see below [place] Comment on above: This method is a scr eening test to detect only these drug classes as part of a medical workup. Confirmatory testing by another method should be ordered if clinically indicated. Methadone Screen, Urine Negative Negative <300 ng/mL [place] Comment on above: Effective: 06/22/19 New Test for Qualitative Drug Screen. Opiate Scrn, Ur Negative Negative < 300 ng/mL [place] Oxycodone Urine Negative Negative <100 ng/mL [place] Comment on above: Effective: 06/22/19 New Test for Qualitative Drug Screen. PCP Screen, Urine Negative Negative < 25 ng/mL [place] Propoxyphene Scrn, Ur Negative Negati ve <300 ng/mL [place] Comment on above: Effective: 06/22/19 New Test for Qualitative Drug Screen. HBSAGon 03-01-2020 Hep B S Ag Interp Non-reactive [place] Hepatitis B Surface Agon Hepatitis B Surface Ag Interp Non-reactive Normal [facility] Comment on above: Performed By: #### U A #### [facility] [address] [place] [address] Microscopic Urinalysison Bacteria, UA Negative Negative /HPF [place] Epithelial Cells, UA 3-5 [place] Hyaline Casts, UA 1-3 [place] RBC (U) [#/Vol] [facility] [place] WBC, UA 3-5 [place] Rubella antibody, IgGon 05- Rubella Antibody IgG 135.9 IU/mL [place] Comment on above: Patient's result ind icates immunity. Default Normal Ranges >=10 Presumed Immune <10 Presumed Not immune TYPE AND SCREENon 03-01-2020 ABO/Rh Positive [place] Type and Screen Capture 3 sc rn cellon 03-01-2020 Type and Screen Capture 3 scrn cell PATIENT: LESLIE Blanco LOC: [facility],0322,[id number] BILL# : [id number] : 2000 SEX: F ORDERED BY: WILLIAM DU ORDERED : 03/01/2020 08:41 COLLECTED: 03/01/2020 09:33 ORDER : [id number] RECEIVED : 03/01/2020 09:33 TEST NAME RESULT UNITS RANGES ABN FL ST ABORH Capture O POS F Antibody 3 Cell Scrn Captu NEG F [facility] Comment on above: Performed By: #### U A #### [facility] [address] [place] [address] UR Drugs of Abuse Panelon Drug Screen Comment see below [facility] Comment on above: Result Comment: This method is a screening test to detect only these drug classes as part of a medical workup. Confirmatory testing by another method should be ordered if clinically indicated. Performed By: #### U DRGS #### [facility] [address] [facility] [address] UR Amphetamines Screen Negative Normal Negative < [facility] Comment on above: Performed By: #### U DRGS #### [facility] [address] [place] [address] UR Barbiturates Screen Negative Normal Negative < [facility] Comment on above: Performed By: #### U DRGS #### [facility] [address] [place] [address] UR Benzo Screen Negative Normal Negative < [facility] Comment on above: Performed By: #### U DRGS #### [facility] [address] [place] [address] UR Cannabinoids Screen Negative Normal Negative < [facility] Comment on above: Performed By: #### U DRGS #### [facility] [address] [place] [address] UR Cocaine Screen Negative Normal Negative < [facility] Comment on above: Performed By: #### U DRGS #### [facility] [address] [place] [address] UR Methadone Screen Negative Normal Negative < [facility] Comment on above: Result Comment: Effe ctive: 06/22/19 New Test for Qualitative Drug Screen. Performed By: #### U DRGS #### [facility] [address] [place] [address] UR Opiates Screen Negative Normal Negative < [facility] Comment on above: Performed By: #### U DRGS #### [facility] [address] [place] [address] UR Oxycodone Screen Negative Normal Negative < [facility] Comment on above: Result Comment: Effe ctive: 06/22/19 New Test for Qualitative Drug Screen. Performed By: #### U DRGS #### [facility] [address] [place] [address] UR PCP Screen Negative Normal Negative < [facility] Comment on above: Performed By: #### U DRGS #### [facility] [address] [place] [address] UR Propoxyphene Screen Negative Normal Negative < [facility] Comment on above: Result Comment: Effe ctive: 06/22/19 New Test for Qualitative Drug Screen. Performed By: #### U DRGS #### [facility] [address] [place] [address] Urinalysison 03-01-2020 Bilirubin Urine Negative Negative [place], [place] Blood, Urine Negative Negative [place], [place] Clarity, UA Clear Clear [place], [place] Color, UA Yellow Straw/Yellow [place] Glucose, Ur Negative Negative mg/dL [place] Interpretation and review of laboratory results Abnormal [place] Ketones Ql (U) Negative Negative mg/dL [place] Leukocyte esterase Test strip Ql (U) LARGE Abnormal Negative [place] Nitrite, Urine Negative Negative [place] pH, UA 7.5 [place] Protein (U) [Mass/Vol] Negative Negat melanie mg/dL [place], [place] Specific [place], UA 1.009 [place], [place] Urobilinogen, Urine 1.0 <2.0 E.U./dL [place] Urinalysis, reflex to micros copicon 03-01-2020 Bilirubin Ql (U) Negative Normal Negative [facility] Comment on above: Performed By: #### U A #### [facility] [address] [place] [address] Clarity (U) Clear Normal Clear [facility] Comment on above: Performed By: #### U A #### [facility] [address] [place] [address] Color (U) Yellow Normal Straw/Marquette [facility] Comment on above: Performed By: #### U A #### [facility] [address] [place] [address] Glucose Ql (U) Negative Normal Negative [facility] Comment on above: Performed By: #### U A #### [facility] [address] [place] [address] Hemoglobin Ql (U) Negative Normal Negative [facility] Comment on above: Performed By: #### U A #### [facility] [address] [place] [address] Ketones Ql (U) Negative Normal Negative [facility] Comment on above: Performed By: #### U A #### [facility] [address] [place] [address] Leukocyte esterase Test strip Ql (U) LARGE Abnormal Negative [facility] Comment on above: Performed By: #### U A #### [facility] [address] [place] [address] Nitrite Ql (U) Negative Normal Negative [facility] Comment on above: Performed By: #### U A #### [facility] [address] [place] [address] pH (U) 7.5 [pH] Normal 5.0-9.0 [facility] Comment on above: Performed By: #### U A #### [facility] [address] [place] [address] Protein Ql (U) Negative Normal Negative [facility] Comment on above: Performed By: #### U A #### [facility] [address] [place] [address] Specific gravity (U) [Rel density] 1.009 Normal 1.005-1.03 [facility] Comment on above: Performed By: #### U A #### [facility] [address] [place] [address] Urobilinogen Qn (U) 1.0 {Lian'U}/dL Normal < 2.0 [facility] Comment on above: Performed By: #### U A #### [facility] [address] [place] [address] Urine Microscopicon 03-01-20 20 Bacteria LM.HPF (Urine sed) [#/Area] Negative Normal Negative [facility] Comment on above: Performed By: #### U EBONY #### [facility] [address] [place] [address] RBC (U) [#/Vol] 0-2 Normal 0-5 [facility] Comment on above: Performed By: #### U EBONY #### [facility] [address] [place] [address] Urine Epithelial Cells Auto 3-5 Normal 0-5 [facility] Comment on above: Performed By: #### U EBONY #### [facility] [address] [place] [address] Urine Hyaline Casts Auto 1-3 Normal 0-5 [facility] Comment on above: Performed By: #### U EBONY #### [facility] [address] [place] [address] Urine WBC Auto 3-5 Normal 0-5 [facility] Comment on above: Performed By: #### U EBONY #### [facility] [address] [place] [address] US OB 1 OR MORE FETUS LIMITE Don 01-15-2020 SINGLE LIVE INTRAUTERINE , WITH ESTIMATED SONOGRAPHIC GESTATIONAL AGE 34 WEEKS, 1 DAY. [facility] [place] EXAMINATION: US OB 1 OR MORE FETUS LIMITED CLINICAL HISTORY: THIRD TRIMESTER COMPARISONS: None available. FINDINGS: Single live intrauterine , with heart rate 126 bpm, in cephalic presentation. Estimated sonographic gestational age 34 weeks, 1 day, with sonographic estimated date of delivery February 25, 2020. Cervical length 3.6 cm. LOLIS 5 7 cm. Estimated weight 2217. Anteriorly located inflated grade 3 placenta. Bilateral kidneys and urinary bladder, four-chamber heart and diaphragm, stomach, cord insertion, and long bones identified. Cerebral ventricles and posterior fossa, cervical, thoracic, and lumbar spine, and three-vessel cord suboptimally imaged secondary to age and position. [facility] [place] Eliud, Chpo Incoming Radiant Results From [email or web address] - 01/15/2020 1:30 PM EDT EXAMINATION: US OB 1 OR MORE FETUS LIMITED CLINICAL HISTORY: THIRD TRIMESTER COMPARISONS: None available. FINDINGS: Single live intrauterine , with heart rate 126 bpm, in cephalic presentation. Estimated sonographic gestational age 34 weeks, 1 day, with sonographic estimated date of delivery February 25, 2020. Cervical length 3.6 cm. LOLIS 5 7 cm. Estimated weight 2217. Anteriorly located inflated grade 3 placenta. Bilateral kidneys and urinary bladder, four-chamber heart and diaphragm, stomach, cord insertion, and long bones identified. Cerebral ventricles and posterior fossa, cervical, thoracic, and lumbar spine, and three-vessel cord suboptimally imaged secondary to age and position. IMPRESSION: SINGLE LIVE INTRAUTERINE , WITH ESTIMATED SONOGRAPHIC GESTATIONAL AGE 34 WEEKS, 1 DAY. [place], [place] US OB 1 OR MORE FETUS LIMITED EXAMINATION: US OB 1 OR MORE FETUS LIMITED CLINICAL HISTORY: THIRD TRIMESTER COMPARISONS: None available. FINDINGS: Single live intrauterine , with heart rate 126 bpm, in cephalic presentation. Estimated sonographic gestational age 34 weeks, 1 day, with sonographic estimated date of delivery February 25, 2020. Cervical length 3.6 cm. LOLIS 5 7 cm. Estimated weight 2217. Anteriorly located inflated grade 3 placenta. Bilateral kidneys and urinary bladder, four-chamber heart and diaphragm, stomach, cord insertion, and long bones identified. Cerebral ventricles and posterior fossa, cervical, thoracic, and lumbar spine, and three-vessel cord suboptimally imaged secondary to age and position. IMPRESSION: SINGLE LIVE INTRAUTERINE , WITH ESTIMATED SONOGRAPHIC GESTATIONAL AGE 34 WEEKS, 1 DAY. Interpreted by: Spike Lopez MD Signed by: Spike Lopez MD 01/15/20 Final result Normal [facility] Glucose 1hr PPon 01-07-2020 Glucose [Mass/Vol] 98 mg/dL Normal 60-140 [facility] Comment on above: Result Comment: Gluc ose tolerance is IMPAIRED when the 1 hour post 50 gram load glucose is greater than 130mg/dL Performed By: #### U A #### [facility] [address] [facility] [address] Hemoglobin and Hematocriton 01-07-2020 Hematocrit (Bld) [Volume fraction] 34.3 % Low 37.0-47.0 [facility] Comment on above: Performed By: #### U A #### [facility] [address] [facility] [address] Hemoglobin (Bld) [Mass/Vol] 11.6 g/dL Low 12.0-16.0 [facility] Comment on above: Performed By: #### U A #### [facility] [address] [place] [address] Microscopic UrinalysisOrdere d By: Catarina Herrera on 10-21-2019 Bacteria, UA FEW Abnormal /HPF [employer] Work Phone: Epi Cells 10-20 [facility] Work Phone: Hyaline Casts, UA 3-5 [employer] Work Phone: Interpretation and review of laboratory results Abnormal [facility] Work Phone: RBC, UA 0-2 [facility] Work Phone: WBC, UA 10-20 Abnormal [facility] [employer] Work Phone: UR Drugs of Abuse Panelon Drug Screen Comment see below Normal [facility] Comment on above: Result Comment: This method is a screening test to detect only these drug classes as part of a medical workup. Confirmatory testing by another method should be ordered if clinically indicated. Performed By: #### U DRGS #### [facility] [address] [place] [address] UR Amphetamines Screen Negative Normal Negative < [facility] Comment on above: Performed By: #### U DRGS #### [facility] [address] [place] [address] UR Barbiturates Screen Negative Normal Negative < [facility] Comment on above: Performed By: #### U DRGS #### [facility] [address] [place] [address] UR Benzo Screen Negative Normal Negative < [facility] Comment on above: Performed By: #### U DRGS #### [facility] [address] [place] [address] UR Cannabinoids Screen Negative Normal Negative < [facility] Comment on above: Performed By: #### U DRGS #### [facility] [address] [place] [address] UR Cocaine Screen Negative Normal Negative < [facility] Comment on above: Performed By: #### U DRGS #### [facility] [address] [place] [address] UR Methadone Screen Negative Normal Negative < [facility] Comment on above: Result Comment: Effe ctive: 06/22/19 New Test for Qualitative Drug Screen. Performed By: #### U DRGS #### [facility] [address] [place] [address] UR Opiates Screen Negative Normal Negative < [facility] Comment on above: Performed By: #### U DRGS #### [facility] [address] [place] [address] UR Oxycodone Screen Negative Normal Negative < [facility] Comment on above: Result Comment: Effe ctive: 06/22/19 New Test for Qualitative Drug Screen. Performed By: #### U DRGS #### [facility] [address] [place] [address] UR PCP Screen Negative Normal Negative < [facility] Comment on above: Performed By: #### U DRGS #### [facility] [address] [place] [address] UR Propoxyphene Screen Negative Normal Negative < [facility] Comment on above: Result Comment: Effe ctive: 06/22/19 New Test for Qualitative Drug Screen. Performed By: #### U DRGS #### [facility] [address] [place] [address] UrinalysisOrdered By: Jaspal Herrera on 10-21-2019 Bilirubin Urine Negative Negative [facility] Work Phone: Blood, Urine Negative Negative [facility] Work Phone: Clarity, UA CLOUDY Abnormal Clear [facility] Work Phone: Color, UA Yellow Straw/Yellow [facility] Work Phone: Glucose, Ur Negative Negative mg/dL [facility] Work Phone: Interpretation and review of laboratory results Abnormal [facility] Work Phone: Ketones Ql (U) Negative Negative mg/dL [facility] Work Phone: Leukocyte esterase Test strip Ql (U) SMALL Abnormal Negative [facility] Work Phone: Nitrite, Urine Negative Negative [facility] Work Phone: pH, UA 7.0 [facility] Work Phone: Protein, UA Negative Negative mg/dL [facility] Work Phone: Specific [place], UA 1.019 [facility] [employer] Work Phone: Urobilinogen, Urine 0.2 <2.0 E.U./dL [facility] Work Phone: Urinalysis, reflex to micros copicon 10-21-2019 Bilirubin Ql (U) Negative Normal Negative [facility] Comment on above: Performed By: #### U A #### [facility] [address] [place] [address] Clarity (U) CLOUDY Abnormal Clear [facility] Comment on above: Performed By: #### U A #### [facility] [address] [place] [address] Color (U) Yellow Normal Straw/Marquette [facility] Comment on above: Performed By: #### U A #### [facility] [address] [place] [address] Glucose Ql (U) Negative Normal Negative [facility] Comment on above: Performed By: #### U A #### [facility] [address] [place] [address] Hemoglobin Ql (U) Negative Normal Negative [facility] Comment on above: Performed By: #### U A #### [facility] [address] [place] [address] Ketones Ql (U) Negative Normal Negative [facility] Comment on above: Performed By: #### U A #### [facility] [address] [place] [address] Leukocyte esterase Test strip Ql (U) SMALL Abnormal Negative [facility] Comment on above: Performed By: #### U A #### [facility] [address] [place] [address] Nitrite Ql (U) Negative Normal Negative [facility] Comment on above: Performed By: #### U A #### [facility] [address] [place] [address] pH (U) 7.0 [pH] Normal 5.0-9.0 [facility] Comment on above: Performed By: #### U A #### [facility] [address] [place] [address] Protein Ql (U) Negative Normal Negative [facility] Comment on above: Performed By: #### U A #### [facility] [address] [place] [address] Specific gravity (U) [Rel density] 1.019 Normal 1.005-1.03 [facility] Comment on above: Performed By: #### U A #### [facility] [address] [place] [address] Urobilinogen Qn (U) 0.2 {Lian'U}/dL Normal < 2.0 [facility] Comment on above: Performed By: #### U A #### [facility] [address] [place] [address] Urine Drug ScreenOrdered By: Catarina Herrera on 10-21-2019 Amphetamine Screen, Urine Negative Negative <1000 ng/mL [facility] Phone: Barbiturate Screen, Ur Negative Negat melanie < 200 ng/mL [facility] Phone: Benzodiazepine Screen, Urine Negative Negative < 200 ng/mL [facility] Phone: Cannabinoid Scrn, Ur Negative Negativ e < 50 ng/mL [facility] Phone: Cocaine Metabolite Screen, Urine Negative Negative < 300 ng/mL [facility] Phone: Drug Screen Comment: see below Assignment Editor Phone: Comment on above: This method is a scr eening test to detect only these drug classes as part of a medical workup. Confirmatory testing by another method should be ordered if clinically indicated. Methadone Screen, Urine Negative Negative <300 ng/mL [facility] Phone: Comment on above: Effective: 06/22/19 New Test for Qualitative Drug Screen. Opiate Scrn, Ur Negative Negative < 300 ng/mL [facility] Phone: Oxycodone Urine Negative Negative <100 ng/mL [facility] Phone: Comment on above: Effective: 06/22/19 New Test for Qualitative Drug Screen. PCP Screen, Urine Negative Negative < 25 ng/mL [facility] Phone: Propoxyphene Scrn, Ur Negative Negati ve <300 ng/mL [facility] Phone: Comment on above: Effective: 06/22/19 New Test for Qualitative Drug Screen. Urine Microscopicon 10-21-19 20 RBC (U) [#/Vol] 0-2 Normal 0-2 [facility] Comment on above: Performed By: #### U EBONY #### [facility] [address] [place] [address] Bacteria LM.HPF (Urine sed) [#/Area] FEW Abnormal [facility] Comment on above: Performed By: #### U EBONY #### [facility] [address] [place] [address] Urine Epithelial Cells Auto 10-20 Normal 0-5 [facility] Comment on above: Performed By: #### U EBONY #### [facility] [address] [place] [address] Urine Hyaline Casts Auto 3-5 Normal 0-5 [facility] Comment on above: Performed By: #### U EBONY #### [facility] [address] [place] [address] Urine WBC Auto 10-20 Abnormal 0-5 [facility] Comment on above: Performed By: #### U EBONY #### [facility] [address] [place] [address] Non-Invasive Testin g for Aneuploidyon 10-05-2019 EER Non-Invasive , Aneuploidy See Note Normal [facility] Comment on above: Result Comment: Miko meade AKMARY KAY Enhanced Report using either link below: -Direct access: [email or web address] -Enter Username, Password: [email or web address] Username: [email or web address] Password: [email or web address] Performed at: [employer] [address] [place] [address], [address] [place] [address] Performed By: #### 0 7537 #### [facility] [address] [place] [address] Fraction 12.5 % Normal [facility] Comment on above: Result Comment: Perf ormed at: [facility] [employer] [address] [place] [address], [address] [place] [address] Performed By: #### 0 7537 #### [facility] [address] [place] [address] Fetus Gender Female Normal [facility] Comment on above: Result Comment: Perf ormed at: [facility] [address], [address] [place] [address] Performed By: #### 0 7537 #### [facility] [address] [place] [address] Gestational Age (Days) 6 d Normal [facility] Comment on above: Result Comment: Perf ormed at: [facility] [address], [address] [place] [address] Performed By: #### 0 0295 #### [facility] [address] [place] [address] Gestational Age (Weeks) 17 weeks Normal [facility] Comment on above: Result Comment: Perf ormed at: [employer] [address], [address] [place] [address] Performed By: #### 0 2625 #### [facility] [address] [place] [address] Monosomy X Low Risk Normal [facility] Comment on above: Result Comment: Perf ormed at: [employer] [address], [address] [place] [address] Performed By: #### 0 5394 #### [facility] [address] [place] [address] Report Fetus Gender yes Normal [facility] Comment on above: Result Comment: Perf ormed at: [facility] [address], [address] [place] [address] Corrected result; previously reported as yes on 09/22/2019 at 12:03 by V/AUT Performed By: #### 0 [id number] #### [facility] [address] [place] [address] Result Summary See Notes Normal [facility] Comment on above: Result Comment: LOW RISK Performed at: [facility] [employer] [address], [address] [place] [address] Performed By: #### 0 3037 #### [facility] [address] [place] [address] Triploidy/Vanishing Twin Low Risk Normal [facility] Comment on above: Result Comment: Perf ormed at: [employer] [address], [address] [place] [address] Performed By: #### 0 5226 #### [facility] [address] [place] [address] Trisomy 13 Low Risk [facility] Comment on above: Result Comment: Perf ormed at: [employer] [address], [address] [place] [address] Performed By: #### 0 9094 #### [facility] [address] [facility] [address] Trisomy 18 Low Risk Normal [facility] Comment on above: Result Comment: Perf ormed at: [employer] [address], [address] [place] [address] Performed By: #### 0 7537 #### [facility] [address] [facility] [address] Trisomy 21 Low Risk Normal [facility] Comment on above: Result Comment: Perf ormed at: [employer] [address], [address] [place] [address] Performed By: #### 0 7537 #### [facility] [address] [place] [address] Maternal Serum Screen, AFP, Onlyon 09-25-2019 Dating Other [facility] Estimated Due Date 02-24-20 [facility] Family Hx Neural Tube Defect No [facility] Gestational Age calc at collect 17 wks, 6 days [facility] INR Coag (Bld) [Relative time] No [facility] Maternal [age] Delivery 19.2 [age] [facility] Maternal Race Nonblack [facility] Maternal Screen Interpretation Screen Neg [facility] Comment on above: Result Comment: INTE RPRETATION: SCREEN NEGATIVE for open spina bifida Neural Tube Defects (NTD) Negative Pre-Test Post-Test Cutoff Neural Tube Defects Risks 1:1030 < 1:01961 1:250 Comments: The risk of an open neural tube defect is less than the screening cut-off. Test developed and characteristics determined by [facility]. See Compliance Statement B: [facility] MoM for AFP 0.71 Normal [facility] Number of Fetuses Turner Normal [facility] Patient's AFP 40 ng/mL Normal [facility] Smoking No [facility] Specimen See Note Normal [facility] Comment on above: Result Comment: Init ial sample Performed by [facility], [address] [place] [id number] [email or web address], Lucas Senior MD, Lab. Director HIV-1,2 Combo Ag/Ab, Reflexi ve Panelon 09-24-2019 HIV 1,2 Combo Antigen/Antibody Negative Normal Negative [facility] Comment on above: Result Comment: The specimen was non-reactive for HIV-1 and HIV-2 antibodies, and p24 antigen. Based on this non-reactive screen result, further reflexive testing was not indicated and was, therefore, not performed INTERPRETIVE INFORMATION: HIV-1,2 Combo Ag/Ab EIA, w/Reflex This assay should not be used for blood donor screening, associated re-entry protocols, or for screening Human Cells, Tissues, and Cellular and Tissue-Based Products (HCT/P). Performed by [facility], [address] [facility] [facility] [id number] [email or web address], Lucas Senior MD, Lab. Director Varicella-Zoster Virus Ab, I gGon 09-24-2019 Varicella-Zoster Virus Ab, IgG 81 IV Normal [facility] Comment on above: Result Comment: INTE RPRETIVE INFORMATION: VZV Ab, IgG 134 IV or less ....... Negative - No significant level of detectable IgG varicella- zoster antibody. 135 -165 IV .......... Equivocal - Repeat testing in 10-14 days may be helpful. 166 IV or greater .... Positive - IgG antibody to varicella-zoster detected, which may indicate a current or past varicella-zoster infection. The best evidence for current infection is a significant change on two appropriately timed specimens, where both tests are done in the same laboratory at the same time. Performed by [facility], [address] [facility],[place] [id number] [email or web address], Lucas Senior MD, Lab. Director RPRon 09-23-2019 Reagin Ab RPR Ql (S) Non-reactive Normal Non-reacti [facility] Comment on above: Performed By: #### U A #### [facility] [address] [place] [address] 920-20 CBC With Platelet and Differ entialon 09-22-2019 Basophils (Bld) [#/Vol] 0.0 10*3/uL Normal 0.0-0.2 [facility] Comment on above: Performed By: #### C BCWD #### [facility] [address] [place] [address] Basophils/100 WBC (Bld) 0.5 % Normal [facility] Comment on above: Performed By: #### C BCWD #### [facility] [address] [place] [address] Eosinophils (Bld) [#/Vol] 0.1 10*3/uL Normal 0.0-0.7 [facility] Comment on above: Performed By: #### C BCWD #### [facility] [address] [place] [address] Eosinophils/100 WBC (Bld) 1.6 % Normal [facility] Comment on above: Performed By: #### C BCWD #### [facility] [address] [place] [address] Erythrocyte distribution width (RBC) [Ratio] 14.0 % Normal 11.5-14.5 [facility] Comment on above: Performed By: #### C BCWD #### [facility] [address] [place] [address] Hematocrit (Bld) [Volume fraction] 36.9 % Low 37.0-47.0 [facility] Comment on above: Performed By: #### C BCWD #### [facility] [address] [place] [address] Hemoglobin (Bld) [Mass/Vol] 12.7 g/dL Normal 12.0-16.0 [facility] Comment on above: Performed By: #### C BCWD #### [facility] [address] [place] [address] Lymphocytes (Bld) [#/Vol] 1.5 10*3/uL Normal 1.0-4.8 [facility] Comment on above: Performed By: #### C BCWD #### [facility] [address] [place] [address] Lymphocytes/100 WBC (Bld) 22.3 % Normal [facility] Comment on above: Performed By: #### C BCWD #### [facility] [address] [place] [address] MCH (RBC) [Entitic mass] 32.2 pg Critically high 27.0-31.3 [facility] Comment on above: Performed By: #### C BCWD #### [facility] [address] [place] [address] MCHC (RBC) [Mass/Vol] 34.5 % Normal 33.0-37.0 [facility] Comment on above: Performed By: #### C BCWD #### [facility] [address] [place] [address] MCV (RBC) [Entitic vol] 93.5 fL Normal 82.0-100.0 [facility] Comment on above: Performed By: #### C BCWD #### [facility] [address] [place] [address] Monocytes (Bld) [#/Vol] 0.5 10*3/uL Normal 0.2-0.8 [facility] Comment on above: Performed By: #### C BCWD #### [facility] [address] [place] [address] Monocytes/100 WBC (Bld) 7.7 % Normal [facility] Comment on above: Performed By: #### C BCWD #### [facility] [address] [place] [address] Neutrophils (Bld) [#/Vol] 4.7 10*3/uL Normal 1.4-6.5 [facility] Comment on above: Performed By: #### C BCWD #### [facility] [address] [place] [address] Neutrophils/100 WBC (Bld) 67.9 % Normal [facility] Comment on above: Performed By: #### C BCWD #### [facility] [address] [place] [address] Platelets (Bld) [#/Vol] 219 10*3/uL Normal 130-400 [facility] Comment on above: Performed By: #### C BCWD #### [facility] [address] [place] [address] RBC (Bld) [#/Vol] 3.95 10*6/uL Low 4.20-5.40 [facility] Comment on above: Performed By: #### C BCWD #### [facility] [address] [place] [address] WBC (Bld) [#/Vol] 7.0 10*3/uL Normal 4.5-11.0 [facility] Comment on above: Performed By: #### C BCWD #### [facility] [address] [place] [address] Hepatitis B Surface Agon Hepatitis B Surface Ag Interp Non-reactive Normal [facility] Comment on above: Performed By: #### H BSG #### [facility] [address] [place] [address] Non-Invasive Testin g for Aneuploidyon 09-22-2019 Fetus Number 1 Normal [facility] Comment on above: Performed By: #### 0 7537 #### [facility] [address] [place] [address] NIPT Height 61 inches Normal [facility] Comment on above: Performed By: #### 0 7537 #### [facility] [address] [place] [address] Rubella Ab, IgGon 09-22-2019 Rubella Ab, IgG 145.9 IU/mL Normal [facility] Comment on above: Result Comment: Brigitte ent's result indicates immunity. Default Normal Ranges >=10 Presumed Immune <10 Presumed Not immune Performed By: #### R UBEL #### [facility] [address] [place] [address] Type and 3 cell Screen OB Ca ptureon 09-22-2019 Type and 3 cell Screen OB Capture PATIENT: LESLIE Blanco LOC: [facility] BILL# : [id number] : 2000 SEX: F ORDERED BY: WILLIAM DU ORDERED : 09/22/2019 12:04 COLLECTED: 09/22/2019 11:59 ORDER : [id number] RECEIVED : 09/22/2019 17:27 TEST NAME RESULT UNITS RANGES ABN FL ST ABORH Capture O POS F Antibody 3 Cell Scrn Captu NEG F Normal [facility] Comment on above: Performed By: #### U A #### [facility] [address] [place] [address] US OB 14 PLUS WEEKS SINGLE O R FIRST GESTATIONon 09-05-2019 US OB 14 PLUS WEEKS SINGLE OR FIRST GESTATION Sonogram #: 1 Presentation: Transverse, head maternal left GS: CRL: BPD: 2.90 Wks: 15w 2d HC: 11.03 Wks: 15w 3d AC: 9.21 Wks: 15w 3d FL: 1.62 Wks: 14w 6d HC/AC: 1.20 Anatomy Cerebral Ventricles SV Posterior Fossa SV Spinal Column SV Right Kidney V Left Kidney V Bladder V 4 Chamber Heart SV Diaphragm V Stomach V Cord Insertion SV 3 Vessel Cord V 12 Long Bones SV Placental Location: Anterior, not low lying Placental Grade: I LOLIS: WNL Cervical Length: 3.3 Dating Date: 09/05/19 Wks by 1st US: Wks at this US: 15w 2d Weight (>28 Wks): LMP: 05/20/19? Wks by LMP: 15w 3d Due date by LMP: Due date by EDC: Heart Rate: 142 bpm Right Ovary: Left Ovary: EXAMINATION: TRANSABDOMINAL FIRST TRIMESTER SONOGRAM CLINICAL HISTORY: Positive test. Amenorrhea. FINDINGS: Transabdominal scans reveal an intrauterine gestation with a single fetus. heart rate of 142 bpm is recorded. Consensus gestational age is 15 weeks 2 days plus or minus 1 week. Grossly no anomalies seen however many structures suboptimally visualized at this early stage of gestation. Please see anatomy chart. Placenta is anterior and intact. No evidence of placenta previa. Amniotic fluid visualized to be within normal limits. Cervix is closed and measures 3.3 cm in diameter on this transabdominal study. IMPRESSION: 15 WEEK 2 DAY SIUP WITH HEART RATE 142 BPM. Interpreted by: Frederick Ontiveros MD Signed by: Frederick Ontiveros MD 09/14/19 Final result Normal [facility] C.trachomatis N.gonorrhoeae DNA ,Urineon 08-28-2019 Neisseria gonorrhoeae DNA, Urine Negative Normal Negative [facility] Chlamydia trachomatis DNA, Urine Negative Normal Negative [facility] Pain Mgt Drug Panel, Hi Res, Uron 08-27-2019 6-acetylmorphine (cutoff 20 ng/mL) Not Detected Normal [facility] 7-Aminoclonazepam (cutoff 40 ng/mL) Not Detected Normal [facility] Kjdkb-PF-Evnxwtesol (cutoff 20 ng/mL) Not Detected Normal [facility] Alprazolam (cutoff 40 ng/mL) Not Detected Normal [facility] Amphetamine (cutoff 100 ng/mL) Not Detected Normal [facility] Barbiturates (cutoff 200 ng/mL) Not Detected Normal [facility] Benzoylecgonine Ql (U) Not Detected Normal [facility] Buprenorphine (cutoff 5 ng/mL) Not Detected Normal [facility] Carisoprodol (cutoff 100 ng/mL) Not Detected Normal [facility] Comment on above: Result Comment: The carisoprodol immunoassay has cross-reactivity to carisoprodol and meprobamate. Clonazepam (cutoff 20 ng/mL) Not Detected Normal [facility] Codeine (cutoff 40 ng/mL) Not Detected Normal [facility] Creatinine, Urine 198.1 mg/dL Normal 20.0-400.0 [facility] Diazepam (cutoff 50 ng/mL) Not Detected Normal [facility] EER Pain Mgt Drug Panel High Res/EMIT U See Note Normal [facility] Comment on above: Result Comment: [facility]ade [facility] Enhanced Report using either link below: -Direct access: [email or web address] -Enter Username, Password: [email or web address] Username: [email or web address] Password: [email or web address] Performed by [facility], [address] [place] [address] [email or web address], Lucas Senior MD, Lab. Director Ethyl Glucuronide (cutoff 500 ng/mL) Not Detected Normal [facility] Fentanyl (cutoff 2 ng/mL) Not Detected Normal [facility] Hydrocodone (cutoff 40 ng/mL) Not Detected Normal [facility] Hydromorphone (cutoff 40 ng/mL) Not Detected Normal [facility] Lorazepam (cutoff 60 ng/mL) Not Detected Normal [facility] Marijuana Metabolite (cutoff 20 ng/mL) Present Normal [facility] MDA (cutoff 200 ng/mL) Not Detected Normal [facility] MDEA-Gabriella (cutoff 200 ng/mL) Not Detected Normal [facility] MDMA-Ecstasy (cutoff 200 ng/mL) Not Detected Normal [facility] Meperidine metabolite (cutoff 50 ng/mL) Not Detected Normal [facility] Methadone Ql (U) Not Detected Normal [facility] Methamphetamine (cutoff 400 ng/mL) Not Detected Normal [facility] Methylphenidate (cutoff 100 ng/mL) Not Detected Normal [facility] Midazolam (cutoff 20 ng/mL) Not Detected Normal [facility] Morphine (cutoff 20 ng/mL) Not Detected Normal [facility] Norbuprenorphine (cutoff 20 ng/mL) Not Detected Normal [facility] Nordiazepam (cutoff 50 ng/mL) Not Detected Normal [facility] Norfentanyl (cutoff 2 ng/mL) Not Detected Normal [facility] Norhydrocodone (cutoff 100 ng/mL) Not Detected Normal [facility] Noroxycodone (cutoff 100 ng/mL) Not Detected Normal [facility] Noroxymorphone (cutoff 100 ng/mL) Not Detected Normal [facility] Oxazepam (cutoff 50 ng/mL) Not Detected Normal [facility] Oxycodone (cutoff 40 ng/mL) Not Detected Normal [facility] Oxymorphone (cutoff 40 ng/mL) Not Detected Normal [facility] Pain Management Drug Panel See Below Normal [facility] Comment on above: Result Comment: Meth odology: Qualitative Enzyme Immunoassay and Qualitative Liquid Chromatography-Time of Flight-Mass Spectrometry or Tandem Mass Spectrometry, Quantitative Spectrophotometry The absence of expected drug(s) and/or drug metabolite(s) may indicate non-compliance, inappropriate timing of specimen collection relative to drug administration, poor drug absorption, diluted/adulterated urine, or limitations of testing. The concentration must be greater than or equal to the cutoff to be reported as present. If specific drug concentrations are required, contact the laboratory within two weeks of specimen collection to request quantification by a second analytical technique. Interpretive questions should be directed to the laboratory. Results based on immunoassay detection that do not match clinical expectations should be interpreted with caution. Confirmatory testing by mass spectrometry for immunoassay-based results is available, if ordered within two weeks of specimen collection. Additional charges apply. For medical purposes only; not valid for forensic use. This test was developed and its performance characteristics determined by [facility]. The U.S. Food and Drug Administration has not approved or cleared this test; however, FDA clearance or approval is not currently required for clinical use. The results are not intended to be used as the sole means for clinical diagnosis or patient management decisions. PCP (cutoff 25 ng/mL) Not Detected Normal [facility] Phentermine (cutoff 100 ng/mL) Not Detected Normal [facility] Propoxyphene (cutoff 300 ng/mL) Not Detected Normal [facility] Tapentadol (cutoff 100 ng/mL) Not Detected Normal [facility] Ywsuadxtek-x-Xlqk (cutoff 200 ng/mL) Not Detected Normal [facility] Temazepam (cutoff 50 ng/mL) Not Detected Normal [facility] Tramadol (cutoff 200 ng/mL) Not Detected Normal [facility] Zolpidem (cutoff 20 ng/mL) Not Detected Normal [facility] Trichomonas vaginalis by AMD on 08-27-2019 Specimen source Nom (Unsp spec) Urine Normal [facility] Comment on above: Performed By: #### 0 [id number] #### [facility] [address] [place] [address] T. vaginalis Amplified Negative Normal Negative [facility] Comment on above: Result Comment: Test developed and characteristics determined by [facility]. See Compliance Statement B: [facility]/CS Interpretive Information: Trichomonas vaginalis by TMA A negative result does not completely rule out infection with T. vaginalis. Results should be interpreted in conjunction with other clinical data. This test has not been validated for use with self-collected vaginal swab specimens from patients. Performance of this test on vaginal swab specimens from women has not been evaluated. This test is intended for medical purposes only and is not valid for the evaluation of suspected sexual abuse or for other forensic purposes. Performed by [facility], [address] [place] [id number] www.[email or web address], Lucas Senior MD, Lab. Director Performed By: #### 0 5506 #### [facility] [address] [place] [address] Culture, Urineon 08-25-2019 Culture, Urine ORDERED BY: LESIA ODEN SOURCE: Urine Clean Catch COLLECTED: 08/25/19 11:06 ANTIBIOTICS AT SAMY.: RECEIVED : 08/25/19 12:41 Culture, Urine FINAL 08/27/19 10:29 No growth 24 hours Normal [facility] Comment on above: Performed By: #### C XURN #### [facility] [address] [place] [address] HCG Quanton 08-25-2019 HCG Quant 05604.0 mIU/mL [facility] Comment on above: Result Comment: Gest ational Age Expected HCG values (mIU/ml) 3 weeks 5-72 4 weeks 10-708 5 weeks 217-8,245 6 weeks 152-32,177 8 weeks 31,366-149,094 12 weeks 27,107-201,615 16 weeks 8,904-55,332 18 weeks 9,649-40,271 Performed By: #### H CGQ #### [facility] [address] [place] [address] Urinalysis, reflex to micros copicon 08-25-2019 Bilirubin Ql (U) Negative Normal Negative [facility] Comment on above: Performed By: #### U A #### [facility] [address] [place] [address] Clarity (U) CLOUDY Abnormal Clear [facility] Comment on above: Performed By: #### U A #### [facility] [address] [place] [address] Color (U) Yellow Normal Straw/Marquette [facility] Comment on above: Performed By: #### U A #### [facility] [address] [place] [address] Glucose Ql (U) Negative Normal Negative [facility] Comment on above: Performed By: #### U A #### [facility] [address] [place] [address] Hemoglobin Ql (U) Negative Normal Negative [facility] Comment on above: Performed By: #### U A #### [facility] [address] [place] [address] Ketones Ql (U) Negative Normal Negative [facility] Comment on above: Performed By: #### U A #### [facility] [address] [place] [address] Leukocyte esterase Test strip Ql (U) Negative Normal Negative [facility] Comment on above: Performed By: #### U A #### [facility] [address] [place] [address] Nitrite Ql (U) Negative Normal Negative [facility] Comment on above: Performed By: #### U A #### [facility] [address] [place] [address] pH (U) 5.5 [pH] Normal 5.0-9.0 [facility] Comment on above: Performed By: #### U A #### [facility] [address] [place] [address] Protein Ql (U) Negative Normal Negative [facility] Comment on above: Performed By: #### U A #### [facility] [address] [place] [address] Specific gravity (U) [Rel density] 1.022 Normal 1.005-1.03 [facility] Comment on above: Performed By: #### U A #### [facility] [address] [place] [address] Urobilinogen Qn (U) 0.2 {Lian'U}/dL Normal < 2.0 [facility] Comment on above: Performed By: #### U A #### [facility] [address] [place] [address] US OB 1 OR MORE FETUS LIMITE Don 06-12-2017 US OB 1 OR MORE FETUS LIMITED SonogramFetal#: 1Presentation: Vertex GS: CRL: BPD: 8.5Wks: 34w 2dHC: 30.72Wks: 34w 2dAC: 27.83Wks: 31w 6dFL: 6.4Wks: 33w 0dHC/AC: 1.10 AnatomyCerebral Ventricles Posterior Fossa Spinal Column Right Kidney Left Kidney Bladder 4 Chamber Heart Diaphragm Stomach Cord Insertion 3 Vessel Cord 12 Long Bones Placental Location: Anterior Placental Grade: 2AFI: 14.6Cervical Length: 3.8Fetal DatingDate: 06/12/17Wks by 1st US: 33w 4dWks at this US: 33w 3dFetal Weight (>28 Wks): 2026 +/- 303g 18.7%LMP: Wks by LMP: Due date by LMP: Due date by EDC: 07/27/17Fetal Heart Rate: 125 bpmRight Ovary: Left Ovary: EXAMINATION: ULTRASOUND LIMITED, SECOND/THIRD TRIMESTERCLINICAL HISTORY: CHECK GROWTH. AGE EXPECTED TODAY BASED ON INITIAL ULTRASOUND OF 12/31/2016 IS 33 WEEKS 4 DAYS.COMPARISONS: 03/29/2017TECHNIQUE: Transabdominal with duplex Doppler. Sonographic imaging was performed by a registered ob nurse and the images are submitted for interpretation.FINDIN GS: There is a single intrauterine with the fetus in cephalic presentation. There is an anterior grade 2 placenta. Amniotic fluid index equals 14.6. The cervix measures 3.8 cm. biometry: See form at the top of this report. Complete anatomic survey was not performed for this requested LIMITED gravid ultrasound study. Age by abdominal circumference is 2 weeks and 2 days behind age by head circumference, although is within expected statistical range. HC/AC, FL/AC, and FL/HC ratios are within normal limits. The estimated weight is 18.7 percentile. The heart rate is 125 bpm. Consider follow-up ultrasound examination in 2-4 weeks to further evaluate possibility of developing IUGR.Incidentally noted are male genitalia with bilateral hydroceles.IMPRESSION : LIVE SINGLE INTRAUTERINE OF 33 WEEKS 3 DAYS WHICH OVERALL REPRESENTS APPROPRIATE GROWTH SINCE FIRST ULTRASOUND STUDY OF 12/31/2016. THERE IS A 2 WEEK 2 DAY HEAD AND ABDOMEN DISCREPANCY, WHICH IS WITHIN EXPECTED STATISTICAL VARIATION. FOLLOW-UP ULTRASOUND IS RECOMMENDED IN 2-4 WEEKS TO FURTHER EVALUATE GROWTH.A [employer] message has been communicated to Adry Jauregui via the [employer] Critical Result system on 06/12/2017 4:43 PM, [place] [id number].Interpreted by:JASMYN Galindoigned by:Raffaele Harris MD06/12/17Final result Normal [facility] Vital Signs Date Time Vital Sign Value Performing Clinician Facility 05-21-2023 23:25-0400 Diastolic blood pressure 80 mm[Hg[facility] 05-21-2023 23:25-0400 Heart rate 65 /min [facility] oBaz [facility] 05-21-2023 23:25-0400 Respiratory [facility] 19 /[facility] 05-21-2023 23:25-0400 SaO2% (BldA) [Mass fraction] 96 % [facility] Dokken [facility] 05-21-2023 23:25-0400 Systolic blood pressure 117 mm[Hg] Kaylinn Dokken [facility] 05-21-2023 21:10-0400 Body temperature 97.88 [degF] Kaylinn Dokken [facility] 05-21-2023 21:10-0400 Diastolic blood pressure 71 mm[Hg] Kaylinn Dokken [facility] 05-21-2023 21:10-0400 Heart rate 62 /min Kaylinn Dokken [facility] 05-21-2023 21:10-0400 Respiratory rate 18 /min Kaylinn Dokken [facility] 05-21-2023 21:10-0400 SaO2% (BldA) [Mass fraction] 100 % Kaylinn Dokken [facility] 05-21-2023 21:10-0400 Systolic blood pressure 126 mm[Hg] Kaylinn Dokken [facility] 08-12-2022 01:10-0400 Diastolic blood pressure 74 mm[Hg] Kaylinn Dokken [facility] 08-12-2022 01:10-0400 Heart rate 64 /min Kaylinn Dokken [facility] 08-12-2022 01:10-0400 Mean blood pressure 87 mm[Hg] Kaylinn Dokken [facility] 08-12-2022 01:10-0400 Respiratory rate 15 /min Kaylinn Dokken [facility] 08-12-2022 01:10-0400 SaO2% (BldA) [Mass fraction] 99 % Kaylinn Dokken [facility] 08-12-2022 01:10-0400 Systolic blood pressure 114 mm[Hg] Kaylinn Dokken [facility] 08-12-2022 00:23-0400 Diastolic blood pressure 78 mm[Hg] Kaylinn Dokken [facility] 08-12-2022 00:23-0400 Heart rate 68 /min Kaylinn Dokken [facility] 08-12-2022 00:23-0400 Mean blood pressure 91 mm[Hg] Kaylinn Dokken [facility] 08-12-2022 00:23-0400 Respiratory rate 14 /min Kaylinn Dokken [facility] 08-12-2022 00:23-0400 SaO2% (BldA) [Mass fraction] 98 % Kaylinn Dokken [facility] 08-12-2022 00:23-0400 Systolic blood pressure 117 mm[Hg] Kaylinn Dokken [facility] 08-11-2022 23:25-0400 Body temperature 97.88 [degF] Kaylinn Dokken [facility] 08-11-2022 23:25-0400 Diastolic blood pressure 82 mm[Hg] Kaylinn Dokken [facility] 08-11-2022 23:25-0400 Heart rate 79 /min Kaylinn Dokken [facility] 08-11-2022 23:25-0400 Respiratory rate 16 /min Kaylinn Dokken [facility] 08-11-2022 23:25-0400 SaO2% (BldA) [Mass fraction] 100 % Kaylinn Dokken [facility] 08-11-2022 23:25-0400 Systolic blood pressure 122 mm[Hg] Kaylinn Dokken [facility] 08-08-2022 22:22-0400 Diastolic blood pressure 62 mm[Hg] Kaylinn Dokken [facility] 08-08-2022 22:22-0400 Systolic blood pressure 101 mm[Hg] Kaylinn Dokken [facility] 08-08-2022 21:42-0400 Diastolic blood pressure 73 mm[Hg] Kaylinn Dokken [facility] 08-08-2022 21:42-0400 Heart rate 53 /min Kaylinn Dokken [facility] 08-08-2022 21:42-0400 Mean blood pressure 87 mm[Hg] Kaylinn Dokken [facility] 08-08-2022 21:42-0400 Respiratory rate 16 /min Kaylinn Dokken [facility] 08-08-2022 21:42-0400 SaO2% (BldA) [Mass fraction] 100 % Kaylinn Dokken [facility] 08-08-2022 21:42-0400 Systolic blood pressure 115 mm[Hg] Kaylinn Dokken [facility] 08-08-2022 19:35-0400 Body temperature 98.06 [degF] Kaylinn Dokken [facility] 08-08-2022 19:35-0400 Diastolic blood pressure 75 mm[Hg] Enioinn Dokken [facility] 08-08-2022 19:35-0400 Heart rate 54 /min Enioinn Dokken [facility] 08-08-2022 19:35-0400 Respiratory rate 14 /min Hienn Dokken [facility] 08-08-2022 19:35-0400 SaO2% (BldA) [Mass fraction] 99 % Hienn Dokken [facility] 08-08-2022 19:35-0400 Systolic blood pressure 124 mm[Hg] pennyn Dokken [facility] 07-28-2022 12:45-0400 Diastolic blood pressure 80 mm[Hg] [facility] 07-28-2022 12:45-0400 Heart rate 62 /min [facility] 07-28-2022 12:45-0400 Respiratory rate 17 /min [facility] 07-28-2022 12:45-0400 SaO2% (BldA) [Mass fraction] 100 % [facility] 07-28-2022 12:45-0400 Systolic blood pressure 109 mm[Hg] [facility] 07-28-2022 11:45-0400 Diastolic blood pressure 70 mm[Hg] [facility] 07-28-2022 11:45-0400 Heart rate 60 /min [facility] 07-28-2022 11:45-0400 Respiratory rate 16 /min [facility] 07-28-2022 11:45-0400 SaO2% (BldA) [Mass fraction] 100 % [facility] 07-28-2022 11:45-0400 Systolic blood pressure 103 mm[Hg] [facility] 07-28-2022 10:47-0400 Body temperature 98.06 [degF] [facility] 07-28-2022 10:47-0400 Diastolic blood pressure 81 mm[Hg] [facility] 07-28-2022 10:47-0400 Heart rate 60 /min [facility] 07-28-2022 10:47-0400 Respiratory rate 17 /min [facility] 07-28-2022 10:47-0400 SaO2% (BldA) [Mass fraction] 100 % [facility] 07-28-2022 10:47-0400 Systolic blood pressure 113 mm[Hg] [facility] 07-22-2020 01:20-0400 BP Diastolic 76 mm[Hg] [facility] 07-22-2020 01:20-0400 BP Systolic 101 mm[Hg] [facility] 07-22-2020 01:20-0400 Pulse (Heart Rate) 57 /min [facility], [place] 07-22-2020 01:20-0400 Pulse Oximetry 99 % [facility] 07-22-2020 01:20-0400 Respiratory Rate 16 /min [facility] [place] 07-22-2020 00:29-0400 BMI (Body Mass Index) 18.89 kg/m2 [facility] 07-22-2020 00:29-0400 Body Temperature 98.6 [degF] [facility] 07-22-2020 00:29-0400 Body weight 45.36 kg [facility] 07-22-2020 00:29-0400 Height 154.9 cm [facility] 03-02-2020 12:10-0400 Body Temperature 98.2 [degF] [facility] [place] 03-[facility]-2020 12:10-0400 BP Diastolic 69 mm[Hg] [facility] [place] 03-02-2020 12:10-0400 BP Systolic 124 mm[Hg] [facility] [place] 03-02-2020 12:10-0400 Pulse (Heart Rate) 59 /min [facility] [place] 03-02-2020 12:10-0400 Respiratory Rate 18 /min [facility] [place] 03-01-2020 08:49-0400 BMI (Body Mass Index) 22.11 kg/m2 [facility] [place] 03-01-2020 08:49-0400 Body weight 53.07 kg [facility] [place] 03-01-2020 08:49-0400 Height 154.9 cm [facility] [place] 10-21-2019 19:57-0500 Body height 154.9 cm Lesia Oden MD Work Phone: [employer] Work Phone: 10-21-2019 19:57-0500 Body mass index (BMI) [Ratio] 18.52 kg/m2 Lesia Oden MD Work Phone: [employer] Work Phone: 10-21-2019 19:57-0500 Body temperature 98.71 [degF] Lesia Oden MD Work Phone: [employer] Work Phone: 10-21-2019 19:57-0500 Body weight 44.45 kg Lesia Oden MD Work Phone: [employer] Work Phone: Comment on above: Last doctor's appointment about 1 mo ago . 10-21-2019 19:57-0500 Diastolic blood pressure 70 mm[Hg] Lesia Oden MD Work Phone: [employer] Work Phone: 10-21-2019 19:57-0500 Heart rate 91 /min Lesia Oden MD Work Phone: [employer] Work Phone: 10-21-2019 19:57-0500 Respiratory rate 18 /min Lesia Oden MD Work Phone: [employer] Work Phone: 10-21-2019 19:57-0500 Systolic blood pressure 119 mm[Hg] Lesia Oden MD Work Phone: [employer] Work Phone: 10-05-2019 10:28-0500 Body weight 41.2776 kg [facility] Comment on above: Result Comment: Performed at: [facility] [address], [facility] [address] [place] [address] Corrected result; previously reported as 91 on 09/22/2019 at 12:03 by V/AUT Performed By: #### [id number] #### [facility] [address] [place] [address] 09-25-2019 13:51-0500 Body weight 91.0 lbs. [facility] Encounters Encounter Date Encounter Type Care Provider Facility Start: 11-07-2023 End: 11-07-2023 ambulatory TRACY VASQUEZ Not Available Start: 10-03-2023 End: 10-03-2023 ambulatory TRACY VASQUEZ Not Available Start: 05-21-2023 End: 05-22-2023 Emergency department patient visit Wilmar Rogel Facility:[facility] Start: 05-21-2023 End: 05-21-2023 Emergency department patient visit Wilmar Rogel [facility] Start: 08-15-2022 ambulatory Perry Goodrich ty:JONATHAN Holman Start: 08-12-2022 End: 08-12-2022 Emergency department patient visit Wilmar Rogel Facility:[facility] Start: 08-11-2022 End: 08-12-2022 Emergency department patient visit Wilmar Rogel [facility] Start: 08-08-2022 End: 08-09-2022 Emergency department patient visit Wilmar Rogel Facility:[facility] Start: 08-08-2022 End: 08-08-2022 Emergency department patient visit Wilmar Rogel [facility] Start: 07-28-2022 End: 07-28-2022 Emergency department patient visit Anna Avendano Facility:[facility] Start: 07-28-2022 End: 07-28-2022 Emergency department patient visit Anna Avendano [facility] Start: 07-22-2020 End: 07-22-2020 Emergency department patient visit [facility] Start: 07-22-2020 End: 07-22-2020 Emergency department patient visit [facility] ED Comment on above: Foot sprain, left, i nitial encounter (Primary Dx) Start: 03-01-2020 End: 03-02-2020 [facility]: [facility]-01[facility] End: 03-02-2020 Evaluation and management of inpatient Lesia Devin Beasleyvarsha Work Phone: [facility] Start: 01-15-2020 End: 01-18-2020 Patient encounter procedure LESIA D [facility] Start: 01-15-2020 End: 01-17-2020 Subsequent hospital visit by physician Sakina Harden 2 [facility] [place] [facility] Ul[facility]ound Comment on above: Encounter for superv ision of other normal in third trimester Start: 10-21-2019 End: 10-21-2019 Patient encounter procedure LESIA Beltran [facility] Start: 10-21-2019 Emergency department patient visit CARLOTA DOBBS [facility] Start: 10-21-2019 End: 10-21-2019 Subsequent hospital visit by physician Lesia Oden MD Work Phone: [facility] Start: 09-05-2019 End: 09-08-2019 Patient encounter procedure LESIA ODEN [facility] Start: 09-05-2019 End: 09-07-2019 Subsequent hospital visit by physician Sakina Ultrasound 1 [facility] [place] [facility] Ultrasound Comment on above: examinatio n or test, positive result; Amenorrhea Start: 06-12-2017 End: 06-13-2017 Ambulatory [facility] Procedures Date Procedure Procedure Detail Performing Clinician Start: 07-22-2020 DURAMEDIC ORTHOPEDIC SUPPLIES LESIA ODEN Start: 07-22-2020 Radex foot complete minimum 3 views LESIA ODEN Start: 03-02-2020 DISCHARGE PATIENT LESIA ODEN Start: 03-02-2020 Blood count complete automated LESIA ODEN Start: 03-02-2020 Blood count complete automated Lesia Oden Work Phone: Start: 03-01-2020 IP CONSULT TO SOCIAL WORK LESIA ODEN Start: 03-01-2020 AMBULATE PATIENT LESIA ODEN Start: 03-01-2020 ASSESS LESIA REESE Start: 03-01-2020 DIET GENERAL LESIA REESE Start: 03-01-2020 FULL CODE LESIA REESE Start: 03-01-2020 ICE TO AFFECTED AREA EILEEN ODEN Start: 03-01-2020 NOTIFY PHYSICIAN (SPECIFY) LESIA ODEN Start: 03-01-2020 PLACE INTERMITTENT PNEUMATIC COMPRESSION DEVICE LESIA ODEN Start: 03-01-2020 SALINE LOCK IV LESIA BUCHANAN Start: 03-01-2020 STRAIGHT CATH LESIA PICKARD Start: 03-01-2020 VITAL SIGNS LESIA REESE Start: 03-01-2020 TRANSFER PATIENT LESIA ODEN Start: 03-01-2020 Drug screen class list a LESIA ODEN Start: 03-01-2020 Urinalysis microscopic only LESIA ODEN Start: 03-01-2020 Urnls dip stick/tabl et rgnt auto w/o microscopy LESIA ODEN Start: 03-01-2020 Blood count complete auto&auto difrntl wbc LESIAJUDY ODEN Start: 03-01-2020 Comprehensive metabo lic panel LESIA ODEN Start: 03-01-2020 Iaad ia hepatitis b surface antigen LESIA ODEN Start: 03-01-2020 Immunoassay infectio us agent antibody rodrigo nos LESIA ODEN Start: 03-01-2020 TYPE AND SCREEN LESIA TYLER Start: 03-01-2020 PATIENT STATUS (DIRECT) LESIA ODEN Start: 03-01-2020 Antibody screen Lesia tyler Start: 03-01-2020 Drug screen class list a Lesia Oden Work Phone: Start: 03-01-2020 Urinalysis microscopic only Lesia Oden Work Phone: Start: 03-01-2020 Urnls dip stick/tabl et rgnt auto w/o microscopy Lesia Oden Work Phone: Start: 03-01-2020 Blood count complete auto&auto difrntl wbc Lesia Oden Work Phone: Start: 03-01-2020 Comprehensive metabo lic panel Lesia Oden Work Phone: Start: 03-01-2020 Iaad ia hepatitis b surface antigen Lesia Oden Work Phone: Start: 03-01-2020 Immunoassay infectio us agent antibody rodrigo nos Lesia Oden Work Phone: Start: 03-01-2020 Blood typing serologic abo Lesia Oden Work Phone: Start: 01-15-2020 Us uterus l imited 1/> fetuses LESIA ODEN Start: 01-15-2020 Us uterus l imited 1/> fetuses Lesia Oden Work Phone: Start: 10-21-2019 DISCHARGE PATIENT LESIA ODEN Start: 10-21-2019 Culture bacterial quanttative colony count urine LESIA ODEN Start: 10-21-2019 Drug screen class list a Catarina Herrera MD Work Phone: Start: 10-21-2019 Urinalysis microscopic only Catarina Herrera MD Work Phone: Start: 10-21-2019 Urnls dip stick/tabl et rgnt auto w/o microscopy Catarina Herrera MD Work Phone: Start: 09-05-2019 Us preg uterus after 1st trimest 10/14 gestation LESIA ODEN Start: 09-05-2019 Us preg uterus real time w/image dcmtn transvag LESIA ODEN Start: 06-12-2017 Us uterus l imited fetuses ESTACIA JUVENTINO Plan of Treatment Date Care Activity Detail Author Start: 08-25-2020 Chlamydia screen Chlamydia screen [place], [place] Start: 08-25-2020 Screening for Chlamy ti trachomatis Chlamydia screen [place], [place] Start: 06-14-2020 Influenza vaccination [place], [place] Start: 01-22-2020 End: 01-22-2020 Routine 01/22/2020 Routine Obstetrics and Gynecology Lesia Oden MD [address] [place] [id number] [facility] [employer] Start: 10-22-2019 End: 10-22-2019 Patient encounter procedure 10/22/2019 Routine Obstetrics and Gynecology Lesia Oden MD [address] [place] [phone] [facility] [employer] Start: 09-22-2019 End: 09-22-2019 Initial 09/22/2019 Initial Obstetrics and Gynecology Lesia Oden MD [address] [place] [phone] [facility] [employer] Start: 06-14-2019 Influenza vaccination Flu vaccine (# 1) [place], [place] Start: 12-14-2018 DTaP/Tdap/Td vaccine (1 - Tdap) DTaP/Tdap/Td vaccine (1 - Tdap) [place] Start: 12-14-2010 DTaP/Tdap/Td vaccine (1 - Tdap) DTaP/Tdap/Td vaccine (1 - Tdap) [place] Start: 12-14-2010 HPV vaccine (1 - 2-d ose series) HPV vaccine (1 - 2-dose series) [place] Start: 12-14-2010 HPV vaccine (1 - Fem betty 2-dose series) HPV vaccine (1 - Female 2-dose series) [place] Start: 12-14-2000 Varicella vaccine (1 of 2 - 2-dose childhood series) Varicella vaccine (1 of 2 - 2-dose childhood series) [place] End: 10-21-2019 Bacteria identified in Urine by Culture Urine Culture Microbiology Routine One Time for 1 Occurrences starting 10/21/2019 until 10/21/2019 [facility] [employer] Work Phone: Comment on above: One Time for 1 Occur rences starting 10/21/2019 until 10/21/2019 End: 09-05-2019 US OB 14 PLUS WEEKS SINGLE OR FIRST GESTATION US OB 14 PLUS WEEKS SINGLE OR FIRST GESTATION Imaging Routine examination or test, positive result Amenorrhea 1 Occurrences starting 09/05/2019 until 09/05/2019 [place] Comment on above: 1 Occurrences starti ng 09/05/2019 until 09/05/2019 US OB 14 PLUS WEEKS SINGLE OR FIRST GESTATION US OB 14 PLUS WEEKS SINGLE OR FIRST GESTATION Imaging Routine examination or test, positive result Amenorrhea 09/05/2019 1:51 PM EST [place], [place] End: 09-05-2019 US OB Transvaginal US OB Transvaginal Imaging Routine examination or test, positive result Amenorrhea 1 Occurrences starting 09/05/2019 until 09/05/2019 [place] Comment on above: 1 Occurrences starti ng 09/05/2019 until 09/05/2019 End: 07-22-2020 XR FOOT LEFT (MIN 3 VIEWS) XR FOOT LEFT (MIN 3 VIEWS) Imaging Routine Once for 1 Occurrences starting 07/22/2020 until 07/22/2020 [place] Comment on above: Once for 1 Occurrenc es starting 07/22/2020 until 07/22/2020 XR FOOT LEFT (MIN 3 VIEWS) XR FOOT LEFT (MIN 3 VIEWS) Imaging STAT 07/22/2020 1:09 AM EDT [place], [place] Immunizations Immunization Date Immunization Notes Care Provider Fa cility 03-01-2020 diphtheria, tetanus toxoids and acellular pertussis vaccine, unspecified formulation [place], [place] NEGATED: Highlighted row has not occurred!03-02-2020 tetanus toxoid, reduced diphtheria toxoid, and acellular pertussis vaccine, adsorbed [place], [place] NEGATED: Highlighted row has not occurred!08-20-2017 tetanus toxoid, reduced diphtheria toxoid, and acellular pertussis vaccine, adsorbed [place] 1 [place], [place] Payers Date Payer Category Payer Unknown [id number] 2017 Unknown BCBS BC[place] - [place] P PO xxxxxxxxxxxxxxx 2017-Present [address] [place] [address] xxxxxxxxxxxxxxx [id number] 2017 Unknown [id number] 2017 Unknown [id number] 2017 Unknown [employer] [facility] MEDICAID xxxxxxxxxxx 2017-Present [phone] CLAIMS DEPARTMENT [address] [place] [address] xxxxxxxxxxx [id number] 1999 Unknown [id number] 1999 Unknown [id number] 1999 Unknown [id number] 1999 Unknown [id number] 1999 Unknown [id number] 1999 Unknown [id number] 1999 Unknown [id number] 1999 Unknown [id number] 1999 Unknown [id number] 1999 Unknown [id number] 1999 Unknown [id number] 1999 Unknown [id number] 9 1999 Unknown [id number] 9 Social History Date Type Detail Facility Start: 10-21-2019 End: 01-07-2020 Tobacco smoking status NHIS Former smoker [place], [place] End: 09-10-2016 History of tobacco use Current sm[place] End: 09-10-2016 History of tobacco use Cigarette Smoker [place] Start: 10-21-2019 End: 01-07-2020 Cigarettes smoked current (pack per day) - Reported [place] Start: 10-21-2019 End: 01-07-2020 Alcohol intake Current non-drinker of alcohol (finding) [place] Start: 06-03-2019 Maya Triplett Work Phone: Sex Assigned At Not on file [facility] [employer] Exposure to SARS-CoV -2 (event) Unable to assess [facility] Start: 07-22-2020 Tobacco use and exposure Never used [facility] Exposure to SARS-CoV -2 (event) Not sure Maya [facility] Start: 07-28-2022 Tobacco smoking status Light t obacco smoker (finding) [facility] Sex Assigned At Female [facility] Functional Status Date Assessment Result Facility 05-21-2023 Functional Status N/A [facility] 08-11-2022 Functional Status N/A [facility] 08-08-2022 Functional Status N/A [facility] 07-28-2022 Functional Status N/A [facility] Hospital Discharge instructions 05-22-2023 Note Date & Type Note Facility 05-22-2023 Hospital Discharg e instructions Patient Education 05/21/2023 23:27:08 Abnormal Uterine Bleeding, Litd-bb-Rjku Abnormal Uterine Bleeding Abnormal uterine bleeding means bleeding more than normal from your womb (uterus). It can include: Bleeding after sex. Bleeding between monthly (menstrual) periods. Bleeding that is heavier than normal. Monthly periods that last longer than normal. Bleeding after you have stopped having your monthly period (menopause). You should see a doctor for any kind of bleeding that is not normal. Treatment depends on the cause of your bleeding and how much you bleed. Follow these instructions at home: Medicines Take lorm-tmy-ewpenyd and prescription medicines only as told by your doctor. Ask your doctor about: ?Taking medicines such as aspirin and ibuprofen. Do not take these medicines unless your doctor tells you to take them. ?Taking bjhk-via-lfzilpv medicines, vitamins, herbs, and supplements. You may be given iron pills. Take them as told by your doctor. Managing constipation If you take iron pills, you may need to take these actions to prevent or treat trouble pooping (constipation): Drink enough fluid to keep your pee (urine) pale yellow. Take gfhr-owq-twwrioz or prescription medicines. Eat foods that are high in fiber. These include beans, whole grains, and fresh fruits and vegetables. Limit foods that are high in fat and sugar. These include fried or sweet foods. Activity Change your activity to decrease bleeding if you need to change your sanitary pad more than one time every 2 hours: Lie in bed with your feet raised (elevated). Place a cold pack on your lower belly. Rest as much as you are able until the bleeding stops or slows down. General instructions Do not use tampons, douche, or have sex until your doctor says these things are okay. Change your pads often. Get regular exams. These include: ?Pelvic exams. ?Screenings for cancer of the cervix. It is up to you to get the results of any tests that are done. Ask how to get your results when they are ready. Watch for any changes in your bleeding. For 2 months, write down: ?When your monthly period starts. ?When your monthly period ends. ?When you get any abnormal bleeding from your vagina. ?What problems you notice. Keep all follow-up visits. Contact a doctor if: The bleeding lasts more than one week. You feel dizzy at times. You feel like you may vomit (nausea). You vomit. You feel light-headed or weak. Your symptoms get worse. Get help right away if: You faint. You have to change pads every hour. You have pain in your belly. You have a fever or chills. You get sweaty or weak. You pass large blood clots from your vagina. These symptoms may be an emergency. Get help right away. Call your local emergency services (911 in the [place] Do not wait to see if the symptoms will go away. Do not drive yourself to the hospital. Summary Abnormal uterine bleeding means bleeding more than normal from your womb (uterus). Any kind of bleeding that is not normal should be checked by a doctor. Treatment depends on the cause of your bleeding and how much you bleed. Get help right away if you faint, you have to change pads every hour, or you pass large blood clots from your vagina. This information is not intended to replace advice given to you by your health care provider. Make sure you discuss any questions you have with your health care provider. Document Revised: 01/30/2022 Document Reviewed: 01/30/2022 [employer] Patient Education 2022 [employer]. Follow Up Care 05/21/2023 21:06:55 With:Martin Pereyra Address: [address], [facility] [address] [place] [address]- Business (1) When:05/24/2023 Comments:Please follow-up with your primary care doctor in the next 2 to 3 days for further evaluation and management. Please follow-up with OB for further evaluation management. Return to the ED for any new or worsening symptoms. With:Pascale Rodríguez Address:Unknown When:05/24/2023 [facility] Evaluation + Plan note 05-21-2023 Note Date & Type Note Facility 05-21-2023 Evaluation + Plan note Extrac shelley from: Title:ED Note Author:Wilmar Rogel DO Date :05/21/23 Abnormal vaginal bleeding (N 93.9: Abnormal uterine and vaginal bleeding, unspecified) Orders: U Beta Hcg Qual UA With Cult Reflex [facility] Evaluation + Plan note 08-12-2022 Note Date & Type Note Facility 08-12-2022 Evaluation + Plan note Extrac shelley from: Title:ED Note Author:Wilmar Rogel DO Date :08/12/22 Renal colic on right side (N 23: Unspecified renal colic) Orders: acetaminophen-hydrocodone, 1 tab(s), Tab, Oral, Once, Stop date 08/12/22 0:48:00 EDT, STAT, Start date 08/12/22 0:48:00 EDT acetaminophen-hydrocodone, 1 EA, Tab, Oral, Once, Stop date 08/12/22 0:48:00 EDT, STAT, Start date 08/12/22 0:48:00 EDT acetaminophen-hydrocodone, 1 tab(s), Oral, q6hr for pain, 12 tab(s), Refill(s) 0 ketorolac, 30 mg = 1 mL, Injection, IV Push, Once, Stop date 08/11/22 23:54:00 EDT, STAT, Start date 08/11/22 23:54:00 EDT, 08/11/22 23:54:00 EDT ondansetron, 4 mg = 1 tab(s), Oral, q8hr, PRN Nausea/Vomiting, # 12 tab(s), Refills(s) 0 ondansetron, 4 mg = 2 mL, Injection, IV Push, Once, Stop date 08/11/22 23:58:00 EDT, STAT, Start date 08/11/22 23:58:00 EDT, 08/11/22 23:58:00 EDT Sodium Chloride 0.9% intravenous solution 1,000 mL, 1,000 mL, IV, 983.61 mL/hr, for 30 day(s), Stop date 09/10/22 23:53:00 EST, STAT, Start date 08/11/22 23:54:00 EDT, 61 minute(s), Total volume (mL): 1,000, 38.6 kg, 1.29, m2 Automated Diff CBC w/ Auto Diff Comprehensive Metabolic Panel eGFR U Beta Hcg Qual UA With Cult Reflex XR Abdomen 1 View [facility] Hospital Discharge instructions 08-12-2022 Note Date & Type Note Facility 08-12-2022 Hospital Discharg e instructions Patient Education 08/12/2022 01:12:12 Kidney Stones, Rmhi-no-Qeys Kidney Stones Kidney stones are rock-like masses that form inside of the kidneys. Kidneys are organs that make pee (urine). A kidney stone may move into other parts of the urinary tract, including: The tubes that connect the kidneys to the bladder (ureters). The bladder. The tube that carries urine out of the body (urethra). Kidney stones can cause very bad pain and can block the flow of pee. The stone usually leaves your body (passes) through your pee. You may need to have a doctor take out the stone. What are the causes? Kidney stones may be caused by: A condition in which certain glands make too much parathyroid hormone (primary hyperparathyroidism). A buildup of a type of crystals in the bladder made of a chemical called uric acid. The body makes uric acid when you eat certain foods. Narrowing (stricture) of one or both of the ureters. A kidney blockage that you were born with. Past surgery on the kidney or the ureters, such as gastric bypass surgery. What increases the risk? You are more likely to develop this condition if: You have had a kidney stone in the past. You have a family history of kidney stones. You do not drink enough water. You eat a diet that is high in protein, salt (sodium), or sugar. You are overweight or very overweight (obese). What are the signs or symptoms? Symptoms of a kidney stone may include: Pain in the side of the belly, right below the ribs (flank pain). Pain usually spreads (radiates) to the groin. Needing to pee often or right away (urgently). Pain when going pee (urinating). Blood in your pee (hematuria). Feeling like you may vomit (nauseous). Vomiting. Fever and chills. How is this treated? Treatment depends on the size, location, and makeup of the kidney stones. The stones will often pass out of the body through peeing. You may need to: Drink more fluid to help pass the stone. In some cases, you may be given fluids through an IV tube put into one of your veins at the hospital. Take medicine for pain. Make changes in your diet to help keep kidney stones from coming back. Sometimes, medical procedures are needed to remove a kidney stone. This may involve: A procedure to break up kidney stones using a beam of light (laser) or shock waves. Surgery to remove the kidney stones. Follow these instructions at home: Medicines Take kkry-wnh-ipvvimf and prescription medicines only as told by your doctor. Ask your doctor if the medicine prescribed to you requires you to avoid driving or using heavy machinery. Eating and drinking Drink enough fluid to keep your pee pale yellow. You may be told to drink at least 8 10 glasses of water each day. This will help you pass the stone. If told by your doctor, change your diet. This may include: ?Limiting how much salt you eat. ?Eating more fruits and vegetables. ?Limiting how much meat, poultry, fish, and eggs you eat. Follow instructions from your doctor about eating or drinking restrictions. General instructions Collect pee samples as told by your doctor. You may need to collect a pee sample: ?24 hours after a stone comes out. ?8 12 weeks after a stone comes out, and every 6 12 months after that. Strain your pee every time you pee (urinate), for as long as told. Use the strainer that your doctor recommends. Do not throw out the stone. Keep it so that it can be tested by your doctor. Keep all follow-up visits as told by your doctor. This is important. You may need follow-up tests. How is this prevented? To prevent another kidney stone: Drink enough fluid to keep your pee pale yellow. This is the best way to prevent kidney stones. Eat healthy foods. Avoid certain foods as told by your doctor. You may be told to eat less protein. Stay at a healthy weight. Where to find more information National Kidney Foundation (NKF): www.kidney.org [facility] (UCF): www.urologyhealth.org Contact a doctor if: You have pain that gets worse or does not get better with medicine. Get help right away if: You have a fever or chills. You get very bad pain. You get new pain in your belly (abdomen). You pass out (faint). You cannot pee. Summary Kidney stones are rock-like masses that form inside of the kidneys. Kidney stones can cause very bad pain and can block the flow of pee. The stones will often pass out of the body through peeing. Drink enough fluid to keep your pee pale yellow. This information is not intended to replace advice given to you by your health care provider. Make sure you discuss any questions you have with your health care provider. Document Released: 03/18/2009 Document Revised: 02/16/2020 Document Reviewed: 02/16/2020 [employer] Patient Education 2019 [employer]. Follow Up Care 08/11/2022 23:21:20 With:Светлана Vigil Address:Unknown When:08/15/2022 Comments:You can use the pain medication every 6 hours as needed for pain. Please follow-up with your primary care doctor next 2 to 3 days for further evaluation and management. Please return to the ED for any new or worsening symptoms. With:Pascale Rodríguez Address:Unknown When:Within 3 Day(s) [facility] Hospital Discharge instructions 08-09-2022 Note Date & Type Note Facility 08-09-2022 Hospital Discharg e instructions Patient Education 08/08/2022 22:20:15 Kidney Stones Kidney Stones Kidney stones are solid, rock-like deposits that form inside of the kidneys. The kidneys are a pair of organs that make urine. A kidney stone may form in a kidney and move into other parts of the urinary tract, including the tubes that connect the kidneys to the bladder (ureters), the bladder, and the tube that carries urine out of the body (urethra). As the stone moves through these areas, it can cause intense pain and block the flow of urine. Kidney stones are created when high levels of certain minerals are found in the urine. The stones are usually passed out of the body through urination, but in some cases, medical treatment may be needed to remove them. What are the causes? Kidney stones may be caused by: A condition in which certain glands produce too much parathyroid hormone (primary hyperparathyroidism), which causes too much calcium buildup in the blood. A buildup of uric acid crystals in the bladder (hyperuricosuria). Uric acid is a chemical that the body produces when you eat certain foods. It usually exits the body in the urine. Narrowing (stricture) of one or both of the ureters. A kidney blockage that is present at (congenital obstruction). Past surgery on the kidney or the ureters, such as gastric bypass surgery. What increases the risk? The following factors may make you more likely to develop this condition: Having had a kidney stone in the past. Having a family history of kidney stones. Not drinking enough water. Eating a diet that is high in protein, salt (sodium), or sugar. Being overweight or obese. What are the signs or symptoms? Symptoms of a kidney stone may include: Pain in the side of the abdomen, right below the ribs (flank pain). Pain usually spreads (radiates) to the groin. Needing to urinate frequently or urgently. Painful urination. Blood in the urine (hematuria). Nausea. Vomiting. Fever and chills. How is this diagnosed? This condition may be diagnosed based on: Your symptoms and medical history. A physical exam. Blood tests. Urine tests. These may be done before and after the stone passes out of your body through urination. Imaging tests, such as a CT scan, abdominal X-ray, or ultrasound. A procedure to examine the inside of the bladder (cystoscopy). How is this treated? Treatment for kidney stones depends on the size, location, and makeup of the stones. Kidney stones will often pass out of the body through urination. You may need to: Increase your fluid intake to help pass the stone. In some cases, you may be given fluids through an IV and may need to be monitored at the hospital. Take medicine for pain. Make changes in your diet to help prevent kidney stones from coming back. Sometimes, medical procedures are needed to remove a kidney stone. This may involve: A procedure to break up kidney stones using: ?A focused beam of light (laser therapy). ?Shock waves (extracorporeal shock wave lithotripsy). Surgery to remove kidney stones. This may be needed if you have severe pain or have stones that block your urinary tract. Follow these instructions at home: Medicines Take huac-xrt-xesilqx and prescription medicines only as told by your health care provider. Ask your health care provider if the medicine prescribed to you requires you to avoid driving or using heavy machinery. Eating and drinking Drink enough fluid to keep your urine pale yellow. You may be instructed to drink at least 8 10 glasses of water each day. This will help you pass the kidney stone. If directed, change your diet. This may include: ?Limiting how much sodium you eat. ?Eating more fruits and vegetables. ?Limiting how much animal protein such as red meat, poultry, fish, and eggs you eat. Follow instructions from your health care provider about eating or drinking restrictions. General instructions Collect urine samples as told by your health care provider. You may need to collect a urine sample: ?24 hours after you pass the stone. ?8 12 weeks after passing the kidney stone, and every 6 12 months after that. Strain your urine every time you urinate, for as long as directed. Use the strainer that your health care provider recommends. Do not throw out the kidney stone after passing it. Keep the stone so it can be tested by your health care provider. Testing the makeup of your kidney stone may help prevent you from getting kidney stones in the future. Keep all follow-up visits as told by your health care provider. This is important. You may need follow-up X-rays or ultrasounds to make sure that your stone has passed. How is this prevented? To prevent another kidney stone: Drink enough fluid to keep your urine pale yellow. This is the best way to prevent kidney stones. Eat a healthy diet and follow recommendations from your health care provider about foods to avoid. You may be instructed to eat a low-protein diet. Recommendations vary depending on the type of kidney stone that you have. Maintain a healthy weight. Where to find more information National Kidney Foundation (NKF): www.kidney.org U[facility] Care Foundation (UCF): www.urologyhealth.org Contact a health care provider if: You have pain that gets worse or does not get better with medicine. Get help right away if: You have a fever or chills. You develop severe pain. You develop new abdominal pain. You faint. You are unable to urinate. Summary Kidney stones are solid, rock-like deposits that form inside of the kidneys. Kidney stones can cause nausea, vomiting, blood in the urine, abdominal pain, and the urge to urinate frequently. Treatment for kidney stones depends on the size, location, and makeup of the stones. Kidney stones will often pass out of the body through urination. Kidney stones can be prevented by drinking enough fluids, eating a healthy diet, and maintaining a healthy weight. This information is not intended to replace advice given to you by your health care provider. Make sure you discuss any questions you have with your health care provider. Document Released: 09/30/2006 Document Revised: 02/16/2020 Document Reviewed: 02/16/2020 [employer] Patient Education 2020 [employer]. Follow Up Care 08/08/2022 19:34:19 With:Perry HAWTHORNE Address: [facility] [address], [place] [address]- Business (1) When:08/11/2022 With:Pascale Rodríguez Address:Unknown When:08/11/2022 [facility] Evaluation + Plan note 08-08-2022 Note Date & Type Note Facility 08-08-2022 Evaluation + Plan note Extrac shelley from: Title:ED Note Author:Nino James PA-C e:08/08/22 Kidney stone (N20.0: Calculu s of kidney) Orders: acetaminophen-hydrocodone, 1 EA, Tab, Oral, Once, Stop date 08/08/22 22:15:00 EDT, STAT, Start date 08/08/22 22:15:00 EDT acetaminophen-hydrocodone, 1 tab(s), Oral, q4hr for pain, 8 tab(s), Refill(s) 0, [facility] #[id number], 154, cm, 08/08/22 19:39:00 EDT, Height/Length Dosing, 46, kg, 08/08/22 19:39:00 EDT, Weight Dosing ketorolac, 30 mg = 1 mL, Injection, IV Push, Once, Stop date 08/08/22 21:57:00 EDT, STAT, Start date 08/08/22 21:57:00 EDT, 08/08/22 21:57:00 EDT morphine, 2 mg = 1 mL, Injection, IV Push, Once, Stop date 08/08/22 19:51:00 EDT, STAT, Start date 08/08/22 19:51:00 EDT, 08/08/22 19:51:00 EDT naproxen, 500 mg = 1 tab(s), Oral, BID, # 20 tab(s), Refills(s) 0, Pharmacy: [facility] #[id number], 154, cm, 08/08/22 19:39:00 EDT, Height/Length Dosing, 46, kg, 08/08/22 19:39:00 EDT, Weight Dosing ondansetron, 4 mg = 2 mL, Injection, IV Push, Once, Stop date 08/08/22 19:51:00 EDT, STAT, Start date 08/08/22 19:51:00 EDT, 08/08/22 19:51:00 EDT ondansetron, 4 mg = 1 tab(s), Oral, q6hr, # 12 tab(s), Refills(s) 0, Pharmacy: [facility] #[id number], 154, cm, 08/08/22 19:39:00 EDT, Height/Length Dosing, 46, kg, 08/08/22 19:39:00 EDT, Weight Dosing ondansetron, 4 mg = 1 tab(s), Tab-Dis, Oral, Once, Stop date 08/08/22 22:15:00 EDT, STAT, Start date 08/08/22 22:15:00 EDT, 08/08/22 22:15:00 EDT Sodium Chloride 0.9% intravenous solution, 1,000 mL, Soln-IV, IV, Once, Stop date 08/08/22 19:51:00 EDT, STAT, Start date 08/08/22 19:51:00 EDT, mL/hr, Infuse over 61, minute(s) tamsulosin, 0.4 mg = 1 cap(s), Oral, Daily, # 10 cap(s), Refills(s) 0, Pharmacy: [facility] #[id number], 154, cm, 08/08/22 19:39:00 EDT, Height/Length Dosing, 46, kg, 08/08/22 19:39:00 EDT, Weight Dosing tamsulosin, 0.4 mg = 1 cap(s), Cap, Oral, Once, Stop date 08/08/22 22:15:00 EDT, STAT, Start date 08/08/22 22:15:00 EDT, 08/08/22 22:15:00 EDT Automated Diff Basic Metabolic Panel Beta hCG Qual CBC w/ Auto Diff CT Abdomen/Pelvis w/ Contrast eGFR Hepatic Function Panel Lipase Level UA With Cult Reflex Urine Strainer to go [facility] Hospital Discharge instructions 07-28-2022 Note Date & Type Note Facility 07-28-2022 Hospital Discharg e instructions Patient Education 07/28/2022 14:06:13 Nonspecific Chest Pain, Adult Nonspecific Chest Pain, Adult Chest pain can be caused by many different conditions. It can be caused by a condition that is life-threatening and requires treatment right away. It can also be caused by something that is not life-threatening. If you have chest pain, it can be hard to know the difference, so it is important to get help right away to make sure that you do not have a serious condition. Some life-threatening causes of chest pain include: Heart attack. A tear in the body's main blood vessel (aortic dissection). Inflammation around your heart (pericarditis). A problem in the lungs, such as a blood clot (pulmonary embolism) or a collapsed lung (pneumothorax). Some non life-threatening causes of chest pain include: Heartburn. Anxiety or stress. Damage to the bones, muscles, and cartilage that make up your chest wall. Pneumonia or bronchitis. Shingles infection (varicella-zoster virus). Chest pain can feel like: Pain or discomfort on the surface of your chest or deep in your chest. Crushing, pressure, aching, or squeezing pain. Burning or tingling. Dull or sharp pain that is worse when you move, cough, or take a deep breath. Pain or discomfort that is also felt in your back, neck, jaw, shoulder, or arm, or pain that spreads to any of these areas. Your chest pain may come and go. It may also be constant. Your health care provider will do lab tests and other studies to find the cause of your pain. Treatment will depend on the cause of your chest pain. Follow these instructions at home: Medicines Take wkcz-iad-nsujerh and prescription medicines only as told by your health care provider. If you were prescribed an antibiotic, take it as told by your health care provider. Do not stop taking the antibiotic even if you start to feel better. Lifestyle Rest as directed by your health care provider. Do not use any products that contain nicotine or tobacco, such as cigarettes and e-cigarettes. If you need help quitting, ask your health care provider. Do not drink alcohol. Make healthy lifestyle choices as recommended. These may include: ?Getting regular exercise. Ask your health care provider to suggest some activities that are safe for you. ?Eating a heart-healthy diet. This includes plenty of fresh fruits and vegetables, whole grains, low-fat (lean) protein, and low-fat dairy products. A dietitian can help you find healthy eating options. ?Maintaining a healthy weight. ?Managing any other health conditions you have, such as high blood pressure (hypertension) or diabetes. ?Reducing stress, such as with yoga or relaxation techniques. General instructions Pay attention to any changes in your symptoms. Tell your health care provider about them or any new symptoms. Avoid any activities that cause chest pain. Keep all follow-up visits as told by your health care provider. This is important. This includes visits for any further testing if your chest pain does not go away. Contact a health care provider if: Your chest pain does not go away. You feel depressed. You have a fever. Get help right away if: Your chest pain gets worse. You have a cough that gets worse, or you cough up blood. You have severe pain in your abdomen. You faint. You have sudden, unexplained chest discomfort. You have sudden, unexplained discomfort in your arms, back, neck, or jaw. You have shortness of breath at any time. You suddenly start to sweat, or your skin gets clammy. You feel nausea or you vomit. You suddenly feel lightheaded or dizzy. You have severe weakness, or unexplained weakness or fatigue. Your heart begins to beat quickly, or it feels like it is skipping beats. These symptoms may represent a serious problem that is an emergency. Do not wait to see if the symptoms will go away. Get medical help right away. Call your local emergency services (911 in the [place] Do not drive yourself to the hospital. Summary Chest pain can be caused by a condition that is serious and requires urgent treatment. It may also be caused by something that is not life-threatening. If you have chest pain, it is very important to see your health care provider. Your health care provider may do lab tests and other studies to find the cause of your pain. Follow your health care provider's instructions on taking medicines, making lifestyle changes, and getting emergency treatment if symptoms become worse. Keep all follow-up visits as told by your health care provider. This includes visits for any further testing if your chest pain does not go away. This information is not intended to replace advice given to you by your health care provider. Make sure you discuss any questions you have with your health care provider. Document Released: 07/10/2006 Document Revised: 04/02/2019 Document Reviewed: 04/02/2019 [employer] Patient Education 2020 [employer]. 07/28/2022 14:06:13 Abdominal Pain, Adult Abdominal Pain, Adult Pain in the abdomen (abdominal pain) can be caused by many things. Often, abdominal pain is not serious and it gets better with no treatment or by being treated at home. However, sometimes abdominal pain is serious. Your health care provider will ask questions about your medical history and do a physical exam to try to determine the cause of your abdominal pain. Follow these instructions at home: Medicines Take slfe-qqi-oznwjdl and prescription medicines only as told by your health care provider. Do not take a laxative unless told by your health care provider. General instructions Watch your condition for any changes. Drink enough fluid to keep your urine pale yellow. Keep all follow-up visits as told by your health care provider. This is important. Contact a health care provider if: Your abdominal pain changes or gets worse. You are not hungry or you lose weight without trying. You are constipated or have diarrhea for more than 2 3 days. You have pain when you urinate or have a bowel movement. Your abdominal pain wakes you up at night. Your pain gets worse with meals, after eating, or with certain foods. You are vomiting and cannot keep anything down. You have a fever. You have blood in your urine. Get help right away if: Your pain does not go away as soon as your health care provider told you to expect. You cannot stop vomiting. Your pain is only in areas of the abdomen, such as the right side or the left lower portion of the abdomen. Pain on the right side could be caused by appendicitis. You have bloody or black stools, or stools that look like tar. You have severe pain, cramping, or bloating in your abdomen. You have signs of dehydration, such as: ?Dark urine, very little urine, or no urine. ?Cracked lips. ?Dry mouth. ?Sunken eyes. ?Sleepiness. ?Weakness. You have trouble breathing or chest pain. Summary Often, abdominal pain is not serious and it gets better with no treatment or by being treated at home. However, sometimes abdominal pain is serious. Watch your condition for any changes. Take lfzr-vex-nbgziym and prescription medicines only as told by your health care provider. Contact a health care provider if your abdominal pain changes or gets worse. Get help right away if you have severe pain, cramping, or bloating in your abdomen. This information is not intended to replace advice given to you by your health care provider. Make sure you discuss any questions you have with your health care provider. Document Released: 07/10/2006 Document Revised: 02/08/2020 Document Reviewed: 02/08/2020 [employer] Patient Education 2020 [employer]. Follow Up Care 07/28/2022 10:42:10 With:Pascale Rodríguez Address: [address] [place] [phone] Business (1) When:07/31/2022 13:53:25 Comments:Return to the emergency room if your symptoms recur or any new symptom [facility] Hospital Discharge instructions 10-21-2019 InstructionsAttachments Note Date & Type Note Facility 10-21-2019 Hospital Discharg e instructions Vera Guevara RN - 10/21/2019 Keep scheduled appointment with Dr. Oden tomorrow. The following attachments cannot be sent through Care Everywhere.: Weeks 22 to 26 (Hungarian)documented in this encounter [facility] Phone: Evaluation + Plan note Note Date & Type Note Facility Evaluation + Plan note No data available for this section [facility] Progress note Note Date & Type Note Facility Progress note No data available for this section [facility] Summary Purpose Family History No Family History Records FoundNo Family History Records FoundNo Family History Records FoundNo Family History Records FoundNo Family History Records Found Advance Directives No Advanced Directives Records FoundDocuments on File Type Date Recorded 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 Advance Directives and Living Will Power of Hockey Scout Latest Code Status on File Code Status Date Activated Date Inactivated Comments Full Code 08/18/2017 12:50 AM 08/18/2017 3:41 AM Full Code 08/16/2017 7:27 PM 08/18/2017 12:50 AM Documents on File Type Date Recorded 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 Advance Directives and Living Will Power of Hockey Scout Latest Code Status on File Code Status Date Activated Date Inactivated Comments Full Code 03/01/2020 8:25 PM Full Code 03/01/2020 8:41 AM 03/01/2020 8:25 PM Full Code 08/18/2017 12:50 AM 08/18/2017 3:41 AM Full Code 08/16/2017 7:27 PM 08/18/2017 12:50 AM Documents on File Type Date Recorded 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 ACP-Advance Directive ACP-Power of Hockey Scout Latest Code Status on File Code Status Date Activated Date Inactivated Comments Full Code 03/01/2020 8:25 PM 03/02/2020 5:34 PM Latest Code Status on File Code Status Date Activated Date Inactivated Comments Full Code 08/18/2017 12:50 AM 08/18/2017 3:41 AM Reason for Referral Status Reason Specialty Diagnoses / Procedures Referre d By Contact Referred To Contact [facility] Diagnoses Encounter for supervision of other normal in third trimester Procedures US OB 1 or More Fetus Limited Lesia Oden MD [address] [place] [address] Status Reason Specialty Diagnoses / Procedures Referred By Contact Referred To Contact Pending Review Diagnoses examination or test, positive result Amenorrhea Procedures US OB Transvaginal Lesia Oden MD [address] [place] [address] Assessments Diagnosis Encounter for supervision of other normal in third trimester Diagnosis Term Term delivered Diagnosis Foot sprain, left, initial encounter Diagnosis examination or test, positive result Amenorrhea Absence of menstruation Hospital Course * Xiang Muse MD - 03/02/2020 2:32 PM EDT PPD#1 ( D/C Summary ): SUBJECTIVE: S/p vag del at FT; infant-ok; bottle feed; patient desires to go to boarder status. OBJECTIVE: BP 124/69 Pulse 59 Temp 98.2 F (36.8 C) (Oral) Resp 18 Ht 5' 1 (1.549 m) Wt 117 lb (53.1 kg) LMP 05/20/2019 Unknown BMI 22.11 kg/m No exam. PP Hgb-9.9 ( 11.7 on adm ). ASSESSMENT: S/p vag del at FT; mild PP blood loss anemia ( no transfusion required ); stable. 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 Xiang Muse MD documented in this encounter Discharge Instructions * Instructions* Ame Isaac RN - 03/02/2020 Guide for new mothers education, Discharge instructions, and Post-Warning Signs sheet reviewed withpatient. Questions answered. Pt verbalizes understanding. * Attachments The following attachments cannot be sent through Care Everywhere. * (Hungarian) * OB CORONAVIRUS (COVID-19): , AND BABY CARE DISCHARGE INSTRUCTIONS documented in this encounter* Attachments The following attachments cannot be sent through Care Everywhere. * Foot Sprain (Hungarian) documented in this encounter History of Present Illness * Lesia Oden MD - 03/02/2020 7:16 AM EDT PROGRESS NOTE: DAY 1 Pt is doing well. Pt is ambulation and tolerating po. Pt bottle feeding without issue. Lochia wnl BP 115/65 Pulse 71 Temp 97.8 F (36.6 C) (Oral) Resp 16 Ht 5' 1 (1.549 m) Wt 117 lb (53.1kg) LMP 05/20/2019 Unknown BMI 22.11 kg/m Hemoglobin Date Value Ref Range Status 03/02/2020 9.9 (L) 12.0 - 16.0 g/dL Final CVS: RRR Lungs: CTAB ABD: Uterus firm at umbilicus EXT: no c/c/e 19 y.o. now P2 s/p vaginal delivery doing well PPD#1 1. May discharge to home when infant released 2. Rx Ibuprofen to pharmacy 3. F/u with Dr. Oden in 6-8wks Lesia Oden MD * Lesia Oden MD - 03/01/2020 2:25 PM EDT Pt with recurrent spontaneous decelerations. FSE applied, pitocin reduced, O2 applied, fluid bolus started and position change performed. Recovery of FHR to 140s with moderate variability, ctx q 1-2min Cx: 4/80/0 Continue with induction Lesia Oden MD * Lesia Oden MD - 03/01/2020 1:27 PM EDT AROM: clear Cx 3/80/-1 FHR: 140's, moderate variability, +accels, -decels Ctx: q 1-2min Pitocin at 6mu/min Pt with epidural for pain mgmt Lesia Oden MD documented in this encounter Additional Source Comments INFORMATION SOURCE (unrecogn ized section and content) DATE CREATED AUTHOR 04/09/2018 [facility] DATE CREATED AUTHOR AUTHOR'S ORGANIZ ATION 01/07/2020 [facility] DATE CREATED AUTHOR [facility]S [facility] DATE CREATED AUTHOR AUTHOR'S ORGANIZ ATION 05/22/2023 [facility] DATE CREATED AUTHOR AUTHOR'S ORGANIZ ATION 11/08/2023 [facility] EPIC Reason for Visit (unrecogniz ed section and content) Status Reason Specialty Diagnoses / Procedures Referre d By Contact Referred To Contact Closed Radiology Diagnoses Encounter for supervision of other normal in third trimester Procedures US OB Transvaginal HC US TRANSVAGINAL OBSETRICAL Lesia Oden MD [address] [place] [address] Reason Comments Scheduled Induction Status Reason Specialty Diagnoses / Procedures Referre d By Contact Referred To Contact Diagnoses Term Lesia Oden MD [address] [place] [address] [facility] Reason Comments Foot Injury pt sts she rough zka sing and injured her left foot Status Reason Specialty Diagnoses / Procedures Referred By Contact Referred To Contact Pending Review Diagnoses examination or test, positive result Amenorrhea Procedures US OB Transvaginal Lesia Oden MD [address] [place] [address] Reason Comments Decreased Movement Abdominal Pain Patient Care team informatio n (unrecognized section and content) Personnel Name: Pascale Rodríguez MD Address: Address: [address] [place] [address] Personnel Name: Pascale Rodríguez MD Address: Address: [address] [place] [address] Personnel Name: Pascale Rodríguez MD Address: Address: [address] [place] [address] Personnel Name: Pascale Rodríguez MD Address: Address: [address] [place] [address] FOR RECORDS PERTAINING TO PATIENTS WHO ARE OR HAVE BEEN ENROLLED IN A CHEMICAL DEPENDENCY/SUBSTANCEABUSE PROGRAM, SOME INFORMATION MAY BE OMITTED. This clinical summary was aggregated from multiple sources. Caution should be exercised in using it in the provision of clinical care. This summary normalizes information from multiple sources, and as a consequence, information in this document may materially change the coding, format and clinical context of patient data. In addition, data may be omitted in some cases. CLINICAL DECISIONS SHOULD BE BASED ON THE PRIMARY CLINICAL RECORDS. [facility] [employer] [facility]. provides no warranty or guarantee of the accuracy or completeness of information in this document.
--- NOTE | 2023-11-08 21:53 | US_ITS ---
The [address] [address] Patient Name: TRINA NELSON MRN: [id number] date: 2000 Sex: F Assigned Patient Location: ER Current Patient Location: ER Accession/Order Number: [id number] Exam Date: 11/08/2023 11:15 Report Date: 11/09/2023 00:25 At the request of: RODRÍGUEZ DAVIS Procedure: US OB transvaginal US OB transvaginal HISTORY: left sided pain, previous abn US. Ectopic r/o COMPARISONS: Pelvic ultrasound dated 09/30/2023 TECHNIQUE: Transvaginal imaging of the pelvis was performed. FINDINGS: There is a gestational sac with a yolk sac, pole or heartbeat of 126 bpm. The mean sac diameter is 1.57 cm. [place]-rump length is 0.99 cm. Gestational age based on this ultrasound is 7 weeks 1 day with estimated date of delivery of 06/25/2024. There is a tiny subchorionic implantation bleed measuring 0.9 x 0.7 x 1.4 cm. RIGHT OVARY: Within normal limits without suspicious masses or cyst. There is normal blood flow. There is a corpus luteum follicle in right ovary measuring 1.3 cm. The right ovary measures 4.8 x 2.2 x 2.3 cm. LEFT OVARY: Within normal limits without suspicious masses or cyst. There is normal blood flow. The left ovary measures 4.2 x 1.9 x 2.4 cm. OTHER:There is no significant free fluid in the pelvis. US/US OB transvaginal IMPRESSION: Single live intrauterine gestation with pole or heartbeat. Gestational age based on this ultrasound is 7 weeks 1 day with estimated date of delivery of 06/25/2024. Electronically authenticated by: KYREE VALENCIA Date: 11/09/2023 00:25
--- NOTE | 2023-11-08 22:24 | ED_ITS ---
HPI - Abdominal Pain General Chief Complaint: Abdominal Pain Stated Complaint: 8 weeks , abdominal pain left side Time Seen by Provider: 11/08/23 21:38 Source: patient Mode of arrival: walk-in Limitations: no limitations History of Present Illness HPI narrative: 22-year-old female to the emergency room chief complaint left-sided pelvic pain. Patient reports that in early September she was seen in this department for similar discomfort. At that time she was found to have a left-sided cyst. Her test was negative. Patient reports that shortly after that he needed that she had a positive test at home. She has not seen an OB. She reports tonight she developed severe left-sided pain again. She denies any vaginal bleeding or discharge. She denies any fever, sweats, chills. She will she is currently eight weeks . She is . Related Data Allergies Allergy/AdvReac Type Severity Reaction Status Date / Time No Known Drug Allergies Allergy Verified 09/30/23 12:34 Review of Systems ROS Status of ROS 10 or more systems reviewed and unremark able except as noted in history and below [facility] Social History Smoking status: Former smoker Exam Narrative Exam Narrative: VITALS: I have reviewed the triage vital signs. GENERAL: Well developed, well appearing adult in no acute distress. NEURO: Alert and oriented. Moves all extremities. Face is symmetric and expressive. EYES: PERRL. No scleral icterus or conjunctival injection. No discharge. HENT: Normocephalic, atraumatic. Hearing is grossly intact. Nares grossly patent and without discharge. Mucous membranes moist. NECK: No JVD. Patient moves neck without restriction. CARDIO: Rhythm regular. Normal rate. No murmur, rub, or gallop. Pulses equal bilaterally in the upper and lower extremity. No lower extremity edema. PULM: Lungs clear to auscultation in all fragoso. No wheezes, rales, or rhonchi. No conversational dyspnea. No splinting, stridor, or accessory muscle use. GI/: Abdomen is soft. Left-sided adnexal tenderness. Normoactive bowel sounds. EXTREMITIES: Symmetric muscle bulk. No joint swelling. No clubbing, cyanosis, or deformity. SKIN: Warm and dry. Normal turgor. No rash or lesions appreciated. PSYCH: Mood, affect, and interaction is appropriate to the setting. Constitutional Vital Signs, click to edit/add: Last Vital Signs Temp 98.2 F 11/08/23 21:41 Pulse 60 11/09/23 00:06 Resp 18 11/08/23 21:41 BP 113/65 11/09/23 00:06 Pulse Ox 98 11/09/23 00:06 O2 Del Method Room Air 11/08/23 21:41 Course Vital Signs Vital signs: Vital Signs Temperature 98.2 F 11/08/23 21:41 Pulse Rate 57 L 11/08/23 21:41 Respiratory Rate 18 11/08/23 21:41 Blood Pressure 126/76 11/08/23 21:41 Pulse Oximetry 98 11/08/23 21:41 Oxygen Delivery Method Room Air 11/08/23 21:41 Temperature 98.2 F 11/08/23 21:41 Pulse Rate 60 11/09/23 00:06 Respiratory Rate 18 11/08/23 21:41 Blood Pressure 113/65 11/09/23 00:06 Pulse Oximetry 98 11/09/23 00:06 Oxygen Delivery Method Room Air 11/08/23 21:41 MDM - Abdominal Pain MDM Narrative Medical decision making narrative: 22-year-old female emergency department complaining of left-sided pelvic pain in the setting of having a positive test. Vitals stable, patient is afebrile. In September she did have an abnormal ultrasound with a cystic structure on the left side. She is high risk for ectopic . We'll proceed with ultrasound, basic labs. Patient agrees with this plan. Laboratory data noted. No major abnormalities. She has appropriate hCG. Rh status positive, she does not need RhoGAM. Ultrasound shows a single live intrauterine gestation seven weeks one day. She has small subchorionic hematoma. She has a right-sided corpus luteum cyst which may be the source of her discomfort. Vitals were discussed with the patient. She is relieved. She'll follow-up with her RN AMBULATORY on Saturday. Return cautioned her discussed. All questions were answered. Patient was discharged home. Medical Records Attestation: I reviewed the patient's medical records. Lab Data Attestation: I reviewed the patient's lab results. Labs: Lab Results 11/08/23 11/08/23 Range/Units 22:00 22:20 WBC 7.4 (4.0-11.0) 10^3/uL RBC 4.00 L (4.20-5.40) 10^6/uL Hgb 12.1 (12.0-16.0) g/dL Hct 35.6 L (36.0-48.0) % MCV 89.0 (81.0-99.0) fL MCH 30.3 (26.7-34.0) pg MCHC 34.0 (29.9-35.2) g/dL RDW 12.4 (11.0-15.0) % Plt Count 225 (150-450) 10^3/uL MPV 10.7 (9.5-13.5) fL Neut % (Auto) 50.9 (43.0-75.0) % Lymph % (Auto) 37.0 (20.5-60.0) % [place] % (Auto) 9.0 (1.7-12.0) % Eos % (Auto) 1.9 (0.9-7.0) % Baso % (Auto) 1.1 (0.2-2.0) % Neut # (Auto) 3.8 (1.4-6.5) 10^3/uL Lymph # (Auto) 2.8 (1.2-3.8) 10^3/uL [place]gs # (Auto) 0.7 (0.3-0.8) 10^3/uL Eos # (Auto) 0.1 (0.0-0.7) 10^3/uL Baso # (Auto) 0.1 (0.0-0.1) 10^3/uL Abs Immat Gran (auto) 0.01 (0.00-0.03) 10^3/uL Imm/Tot Granulo (auto) 0.1 (0.0-0.5) % Sodium 136 (136-145) mmol/L Potassium 3.2 L (3.5-5.1) mmol/L Chloride 102 (98-107) mmol/L Carbon Dioxide 26.5 (21.0-32.0) mmol/L Anion Gap 10.7 BUN 10.0 (7.0-18.0) mg/dL Creatinine 0.57 (0.55-1.02) mg/dL Est GFR ( Amer) >60 (>=60) Est GFR (Non-Af Amer) >60 (>=60) BUN/Creatinine Ratio 17.5 Glucose 85 (74-106) mg/dL Calcium 9.3 (8.5-10.1) mg/dL HCG, Quant 59909 mIU/mL Urine Color Lt. yellow (YELLOW) Urine Clarity Clear (CLEAR) Urine pH 6.5 (5.0-9.0) Ur Specific [place] 1.025 (1.005-1.025) Urine Protein Negative (NEG/TRACE) mg/dL Urine Glucose (UA) Negative (NEGATIVE) mg/dL Urine Ketones Negative (NEGATIVE) mg/dL Urine Occult Blood Negative (NEGATIVE) Urine Nitrite Negative (NEGATIVE) Urine Bilirubin Negative (NEGATIVE) Urine Urobilinogen 1.0 (0.2-1.0) EU/dL Ur Leukocyte Esterase Negative (NEGATIVE) Blood Type O Positive Antibody Screen Negative Imaging Data US - abdomen: Attestation: I have reviewed the pertinent imaging results. Radiologist's impression: ITS Impressions Transvaginal US 11/08/23 21:53 IMPRESSION: Single live intrauterine gestation with pole or heartbeat. Gestational age based on this ultrasound is 7 weeks 1 day with estimated date of delivery of 06/25/2024. Electronically authenticated by: KYREE VALENCIA Date: 11/09/2023 00:25 Discharge Plan Discharge Chief Complaint: Abdominal Pain Clinical Impression: Abdominal pain Patient Disposition: Home, Self-Care Time of Disposition Decision: 00:46 Condition: Good Mode of Transportation: Private Vehicle Print Language: Syrian Instructions: Abdominal Pain (ED) Additional Instructions: CALL THE OFFICE OF YOUR OB ON SATURDAY TO ARRANGE FOR FOLLOW-UP CARE. Stand Alone Forms: Portal Instructions Referrals: Physician,Non-Staff, MD [Primary Care Provider] - 1 week
[2023-11-08 22:27] LABS: Basophils Absolute Auto 0.1 10^3/uL (0.0-0.1); Basophils Percent Auto 1.1 % (0.2-2.0); Eosinophils Absolute Auto 0.1 10^3/uL (0.0-0.7); Eosinophils Percent Auto 1.9 % (0.9-7.0); Hematocrit 35.6 % (36.0-48.0); Hemoglobin 12.1 g/dL (12.0-16.0); Immature Granulocytes Abs Auto 0.01 10^3/uL (0.00-0.03); Immature Granulocytes Pct Auto 0.1 % (0.0-0.5); Lymphocytes Absolute Auto 2.8 10^3/uL (1.2-3.8); Mean Corpuscular Hemoglobin 30.3 pg (26.7-34.0); Mean Platelet Volume 10.7 fL (9.5-13.5); Monocytes Absolute Auto 0.7 10^3/uL (0.3-0.8); Neutrophils Absolute Auto 3.8 10^3/uL (1.4-6.5); Neutrophils Percent Auto 50.9 % (43.0-75.0); Platelet Count 225 10^3/uL (150-450); Red Cell Distribution Width 12.4 % (11.0-15.0); White Blood Count 7.4 10^3/uL (4.0-11.0)
[2023-11-08 22:35] LABS: Bilirubin Urine NEGATIVE (NEGATIVE); Blood Urine NEGATIVE (NEGATIVE); Clarity Urine CLEAR (CLEAR); Color Urine LT. YELLOW (YELLOW); Glucose Urine UA NEGATIVE (NEGATIVE); Ketones Urine NEGATIVE (NEGATIVE); Leukocyte Esterase Urine NEGATIVE (NEGATIVE); Nitrite Urine NEGATIVE (NEGATIVE); Protein Urine NEGATIVE (NEG/TRACE); Specific Gravity Urine 1.025 (1.005-1.025); pH Urine 6.5 (5.0-9.0)
[2023-11-08 22:36] LABS: Urine Microscopic Indicated NO
[2023-11-08 23:04] LABS: Anion Gap 10.7; BUN Creatinine Ratio 17.5; Calcium 9.3 mg/dL (8.5-10.1); Carbon Dioxide 26.5 mmol/L (21.0-32.0); Chloride 102 mmol/L (98-107); Estimated GFR (African America >60 (>=60); Estimated GFR (Non-African Ame >60 (>=60); Glucose 85 mg/dL (74-106); HCG Quantitative 35293 mIU/mL; Potassium 3.2 mmol/L (3.5-5.1); Sodium 136 mmol/L (136-145)
[2023-11-09 00:06] VITALS: BP 113/65; PULSE 60; O2SAT 98
--- NOTE | 2023-11-09 01:00 | PC.NURSE ---
Discussed discharge paperwork with pt and . All questions answered. Pt states she has appt with OB on . Pt ambulated off unit in stable condition.
== END 2023-11-09 01:01 | disposition home or self-care (01) ==
PROVIDERS: Emergency Provider Student in an Organized Health Care Education/Training Program
DX: O26.891 Other specified pregnancy related conditions, first trimester (principal); R10.9 Unspecified abdominal pain; Z3A.08 8 weeks gestation of pregnancy; Z87.891 Personal history of nicotine dependence
CPT/HCPCS: 36415; 76817; 80048; 81003; 84702; 85025; 86850; 86900; 86901; 99284